=== PATIENT | female | born 1945 | race Caucasian/White ===

== ENCOUNTER → 2018-07-11 10:36 | Outpatient (BNVA) | payer MEDICARE, OTHER, SELFPAY | PROVIDERS: PCP Internal Medicine; Referring Provider Internal Medicine; Visit Provider Student in an Organized Health Care Education/Training Program | DX: M75.82 Other shoulder lesions, left shoulder (principal); M25.512 Pain in left shoulder | CPT/HCPCS: 99214 ==

== ENCOUNTER 2019-09-26 02:23 | Outpatient (CLI) | payer MEDICARE, OTHER, SELFPAY ==
--- NOTE | 2019-09-26 09:19 | DI.MAMMO_ITS ---
EXAM: MAMMO SCREENING CLINICAL HISTORY: screening z12.39 TECHNIQUE: Mammograms were interpreted according to the usual protocol including computer analysis w [employer] CAD system, tomosynthesis and C-view imaging. FINDINGS: The breasts are of moderate density with fairly symmetrical distribution of fibroglandular tissue. N o dominant mass or clumped microcalcification is identified in either breast. Current examination is compared with previous examinations including October 2016 and there has been no gross interval denny nge in appearance in comparison with previous studies. IMPRESSION: No specific evidence of malignancy at this time. Routine screening examinations are suggested at year ly intervals due to the family history of breast carcinoma. Category 1. Breast density, category B. BI-RADS Cat 1 - Negative. Breast Density - Category B - Scattered areas of fibroglandular density.
== END 2019-09-26 02:43 ==
PROVIDERS: PCP Internal Medicine; Visit Provider Nurse Practitioner Family
DX: Z12.31 Encounter for screening mammogram for malignant neoplasm of breast (principal); Z80.3 Family history of malignant neoplasm of breast
CPT/HCPCS: 77063; 77067

== ENCOUNTER 2020-05-22 04:20 | Outpatient (CLI) | payer MEDICARE, OTHER, SELFPAY ==
--- NOTE | 2020-05-22 07:30 | DI.CT_ITS ---
EXAM: CT CHEST PE CTA CLINICAL HISTORY: acute pleuritic pain, R07.81. TECHNIQUE: Imaging Protocol: Axial CT angiography was performed with multi-slice acquisition and mu lti-planar and/or 3D reconstructions. CONTRAST MATERIAL: Intravenous: Omnipaque 350 Contrast volume:90 mL COMPARISON: CT PELVIC/LOWER ABD WITHOUT CONT from 07/29/2017 FINDINGS: Pulmonary Arteries: No evidence of filling defect to suggest pulmonary emboli. Tracheobronchial tree: Patent where visualized. Mediastinum and [place]: No dominant adenopathy or fluid collection. Pulmonary parenchyma: There is poor inspiration with areas of atelectasis present. No architectural d istortion. Pleura: No effusion or pneumothorax. Heart: The heart is not dilated. No coronary artery calcifications are seen. No pericardial effusion. Aorta: Thoracic aorta non-dilated. Atherosclerosis. No dissection. Upper abdomen: Unremarkable. Bones: Degenerative changes. Soft tissues: Unremarkable. IMPRESSION: No evidence of pulmonary embolism, thoracic aortic dissection or aneurysm. RADIATION DOSE DELIVERED: Total DLP DATA REPOSITORY: All CT scans at this facility are submitted to the National Radiology Data Registry (NRDR) Dose Index Registry (DIR) with the [employer] (ACR). RADIATION OPTIMIZATION: All CT scans at this facility use at least one of these dose optimization te chniques: automated exposure control; mA and/or kV adjustment per patient size (includes targeted exa ms where dose is matched to clinical indication); or iterative reconstruction.
[2020-05-22 12:46] LABS: CREATININE 0.68 mg/dL (0.55-1.02)
[2020-05-22] MEDS: Omnipaque 350 MG/ML 100 ML BTL IJ (13:21)
[2020-05-22] MEDS: Normal Saline - Diluent 50 ML VIAL IV (13:26)
== END 2020-05-22 04:40 ==
PROVIDERS: PCP Internal Medicine; Visit Provider Internal Medicine
DX: R07.81 Pleurodynia (principal)
CPT/HCPCS: 71275; 82565; J3490

== ENCOUNTER 2020-06-07 07:47 | Emergency (ER) | payer MEDICARE, OTHER, SELFPAY ==
[2020-06-07] VITALS (47 sets, daily range): BP systolic 96–154; BP diastolic 56–97; PULSE 62–88; RESP 14–27; TEMP 36.6; O2SAT 94–99
--- NOTE | 2020-06-07 07:45 | RT.EKG_ITS ---
APPROVED REPORT Exam: Resting ECG Patient Location: E HR:81 bpm ECG Measurements Heart Rate 81 AXIS DE 163 P 80 QRSd 91 QRS 53 QT 392 T 48 QTc 454 Conclusion Sinus rhythm...normal P axis, V-rate 60- 99 I have reviewed and interpreted ECG and agree with software generated interpretation.
--- NOTE | 2020-06-07 07:55 | ED.GENADUL_ITS ---
Discharge Plan Disposition Patient Disposition: HOME Condition: Stable Discharge Details Clinical Impression: Fatigue, Abnormal weight loss, Difficulty balancing, Palpitations Primary Care Provider: Harmony Matute ED Provider: Emmy Gandhi Home Meds and New Rx's Prescriptions: Continued cholecalciferol (vitamin D3) 1,000 UNIT tablet 1,000 unit PO DAILY RF: 0 calcium carbonate [Calcium 600] 600 MG tablet 600 mg PO DAILY RF: 0 cod liver oil 118 ML oil 118 ml PO DAILY RF: 0 cranberry extract [Cran-Max] 500 MG capsule 500 mg PO DAILY RF: 0 Probiotic 1 EACH capsule 1 ea PO DAILY RF: 0 acetaminophen [Mapap Extra Strength] 500 MG tablet 1,000 mg PO TID PRN PRNQty: 0 RF: 0 Discharge Instructions Instructions: Heart Palpitations (ED), Fatigue (ED) Additional Instructions: Your imaging and labs are reassuring today. Your tick panel is pending and we will call you with any positive results. Please continue to encourage water intake. Please contact your primary care tomorrow to schedule follow-up appointment and discuss echocardiography technologist as well as potential MRI. Please keep your upcoming appoint with rheumatology. If you develop chest pain, shortness of breath, fever/chills or the new/worsening symptoms please seek care urgently once again. Referrals: Harmony Matute MD [Primary Care Provider] - Discharge Data Discharge Date/Time-TO BE ENTERED AT DEPARTURE: 06/07/20 12:20 Medical Decision Making Patient is a pleasant 74-year-old female presenting today with chief complaint of fatigue and heart fluttering. She reports that the fatigue is been ongoing since August of last year. She states that she has been evaluated for primary care regarding this and no definitive diagnosis has been made thus far. She was recently referred to rheumatology. She states that she awoke this morning she was feeling more fatigued than she has been over the past several months and that she has experienced some fluttering in her chest. She denies any chest pain. No shortness of breath. She has been feeling more winded with activity and fatigue, her primary care did recently obtain a PE study which was found to be negative. She states that she has been bitten by a tick. States that she did recently blood work at [facility], unclear if this did include a tick panel. States that she is had approximately 10 pounds of unintentional weight loss. She denies any pain. She does have family history significant for glioblastoma in her brother, colon cancer in her grandmother, breast cancer in her mother. She does have routine medical appointments, has followed up with her mammograms as recommended. States that otherwise she is fairly healthy. Reviewed recent labs from [facility]. It was significant for positive rheumatoid factor. NICOLE was negative. Thyroid studies are normal. Patient had a negative Lyme will be repleted tick and Lyme panel as her symptoms sound to have worsened she does report having tick bites from her dog bring them in. ECG was reviewed by physician with no acute ischemic changes noted. Neurologic exam is intact although patient does have a slight difficulty doing heel-to-toe. She has an appointment balance is been off and symptoms have progressively worsened. She also reports that she is been having difficulty with cognition. While she seems quite quick with her responses is very appropriate today, she reports that she feels that she is been having a cognitive delay and is not as sharp as she is typically. She does have a family history of glioblastoma. This change in her balance and cognitive functioning, I do feel that brain imaging would be appropriate. I am unable to obtain MRI at this time but will obtain CT for evaluation FINDINGS: Brain: No acute intracranial hemorrhage.. There is mild diffuse heterogeneity of the white matter attenuation, consistent with chronic white matter ischemic changes. Mild cerebral atrophy Ventricles: No ventriculomegaly. Bones/joints: Unremarkable. No acute fracture. Paranasal sinuses: There is nonspecific fluid within the ethmoid sinuses. Mastoid air cells: Visualized mastoid air cells are well aerated. Soft tissues: Unremarkable. IMPRESSION: No acute intracranial hemorrhage.. Spoke with patient regarding findings. Labs are also reviewed with the patient. No leukocytosis. Stable H&H. Magnesium is slightly low, she does report recently beginning supplements the recommendation of her daughter. She is had troponins less than 0.05?2. 2 ECGs without acute abnormality. She does appear slightly dehydrated on her UA. I did discuss this with her and she is able to take in more hydration orally. Recommended Holter monitor for continued evaluation of the palpitations she experienced this morning. She is been asymptomatic since being here. I am also questioning if she has underlying arrhythmia that was not noted today that may be contributing to her chronic fatigue. Discussed findings with her at patient's request. He would like to hold off on the Holter monitor and asked that PCP order VIC patch. I did discuss this recommendation with the patient and she is in agreement with this. I also discussed potentially undergoing MRI for her cognitive decline as well as her balance dysfunction. Patient will discuss this further with her primary care. HPI General Mode of arrival: ambulatory . Date/Time Provider Initiated Documentation: 06/07/20 07:55 . Limitations to Documentation: no limitations . Information obtained by: patient, RN notes reviewed and old records reviewed . HPI Narrative: Patient is a pleasant 74-year-old female past medical history significant for Sjogren's syndrome, presenting today with chief complaint of weakness, palpitations and sweating. Patient reports that she has been having fatigue and general malaise since 09/05/2019. However, the fluttering in her chest is new today. States that she was seen at [facility] approximately 1 month ago at which time a large amount of blood work was completed which she reports was nondiagnostic. She reports she did have a rapid change in diet approximately 2 days ago at which time she removed coffee, wheat, soy, dairy products. States that she noted this sensation when she awoke this morning at 0630. Related Data Home Medications Medication Instructions Recorded Confirmed cholecalciferol (vitamin D3) 1,000 unit PO DAILY 12/06/12 06/09/20 calcium carbonate [Calcium 600] 600 mg PO DAILY 07/25/14 06/09/20 cod liver oil 118 ml PO DAILY 07/25/14 06/09/20 cranberry extract [Cran-Max] 500 mg PO DAILY 07/25/14 06/09/20 Probiotic 1 ea PO DAILY 10/15/15 06/09/20 acetaminophen [Mapap Extra 1,000 mg PO TID PRN PRN #0 tab 07/31/17 06/09/20 Strength] Previous Rx's Medication Instructions Recorded acetaminophen [Mapap Extra 1,000 mg PO TID PRN PRN #0 tab 07/31/17 Strength] Allergies Allergy/AdvReac Type Severity Reaction Status Date / Time Sulfa (Sulfonamide Allergy Mild Skin Rash Verified 06/07/20 08:04 Antibiotics) Review of Systems Constitutional Constitutional: Reports as per HPI, Denies chills, Reports fatigue, Denies fever(s), Denies frequent falls (states that balance has been off), Denies headache(s), Denies snoring, Denies weakness and Reports weight loss (reports 10lb weight loss, unintentional) Eyes Eyes: Reports as per HPI, Denies blurry vision, Denies change in vision and Reports photophobia ENT Ears, Nose, Mouth, and Throat: Denies vertigo, Denies headache(s) and Denies neck pain Cardiovascular Cardiovascular: Reports as per HPI, Denies chest pain, Denies chest pain with activity, Reports rapid heart rate (reports feeling palpitations with fluttering in her chest), Denies lightheadedness, Denies radiating jaw, neck or arm pain, Denies dyspnea and Denies dyspnea on exertion Respiratory Respiratory: Reports as per HPI, Denies chest congestion, Denies cough, Denies dyspnea, Denies dyspnea on exertion, Denies snoring, Denies stridor and Denies wheezing Gastrointestinal Gastrointestinal: Reports as per HPI, Denies abdominal pain, Denies change in bowel habits, Denies nausea and Denies vomiting Musculoskeletal Musculoskeletal: Reports as per HPI, Denies back pain, Denies myalgias, Denies muscle cramps, Denies neck pain and Denies numbness Integumentary/Breasts Skin/Breast: Reports as per HPI and Denies rash Neurologic Neurologic: Reports as per HPI, Denies abnormal movements, Denies abnormal speech, Denies behavioral changes, Denies confusion, Denies vertigo, Denies frequent falls (states that balance has been off), Denies headache(s), Denies localized weakness, Denies numbness, Denies sensory deficit and Denies weakness Psychiatric Psychiatric: Denies behavioral changes and Denies confusion Endocrine Endocrine: Reports fatigue Allergic/Immunologic Allergic/Immunologic: Denies wheezing [facility] Surgical History Oophrectomy, Both with hyst Vaginal hysterectomy 2001 for prolapse Family History Mother , Alzheimers at age 89. Breast cancer Grandmother Colon cancer MGM Father No problems noted. Social History Smoking/Tobacco Use Status: Never Alcohol Intake: never Drug use: Never Household members: spouse Housing: house What is your relationship status?: Panel score (0-1 are the most socially isolated patients): 1 What type of physical activity do you participate in: regular exercise Seatbelt use: always Drive intox or ride w/intox driver operator: No Working smoke detector in home: Yes Fire extinguisher in home: Yes Carbon monox detector in home: Yes Do you feel safe at home: Yes Do you feel safe in your relationship?: Yes Exam Const General: cooperative, healthy appearing, uncomfortable, no acute distress, well developed and well groomed Nutritional Appearance: average body habitus and well nourished Orientation: alert, awake and oriented x3 HENMT Head: normal to inspection, no palpable skull fracture, normocephalic and atraumatic Ears: hearing grossly normal bilaterally, external ears normal and TM's normal bilaterally General nose exam: external nose normal Mouth: oral mucosae normal and moist mucous membranes Throat: posterior oropharynx normal Eyes General: appearance normal, both eyes and all related structures Alignment and Position: alignment normal Periorbital: periorbital findings normal Eyelids: eyelids normal Sclera: sclerae normal Cornea: corneas normal Pupils: PERRL EOM: EOM intact bilaterally Neck Neck: normal visual inspection, full ROM, no lymphadenopathy and no meningeal signs Resp Effort & Inspection: normal respiratory effort, able to speak in complete sentences and no respiratory distress Auscultation: clear to auscultation bilaterally, no rales, no rhonchi and no wheezes Cardio Rate: regular rate Rhythm: regular rhythm Heart Sounds: S1 normal and S2 normal GI Inspection: normal to inspection and non-distended Palpation: soft, no hepatosplenomegaly, not firm, no guarding, not rigid and nontender Percussion: normal to percussion Auscultation: normal bowel sounds Back/Spine/Pelvis Cervical Spine: normal cervical lordosis and cervical ROM normal Skin General skin exam: no rashes or lesions noted Neuro General: patient alert, patient awake and patient oriented x3 Cranial Nerves: CN's II-XI intact bilaterally Cognition: normal cognition Speech: speech normal Gait: normal gait Motor: muscle tone normal throughout, strength 5/5 throughout, no pronator drift, no movement abnormalities noted and no fasciculations Sensory Exam: no sensory deficits noted DTR's: Rt Triceps: 2+, Lt Triceps: 2+, Rt Biceps: 2+, Lt Biceps: 2+, Rt Brachioradialis: 2+, Lt Brachioradialis: 2+, Rt Patellar: 2+, Lt Patellar: 2+, Rt Ankle: 2+ and Lt Ankle: 2+ Coordination: [id number] test normal, [id number] test normal, Romberg test normal, tandem gait abnormal (Has to correct herself frequently, catches herself on the bed), Does not sway with eyes open, rapid alternating movement UE normal and rapid alternating movement LE normal Extrem General: normal to inspection, capillary refill normal, no pedal edema and no calf tenderness Psych Appearance: grossly normal and well kempt Mental Status: mental status grossly normal Speech and Movement: speech and movement normal
[2020-06-07 08:15] LABS: Abs Immature Grans 0.03 10^3/uL (0.0-0.06); Absolute Basophil Count 0.02 10^3/uL (0.0-0.2); Absolute Eosinophil Count 0.13 10^3/uL (0.0-0.7); Absolute Lymphocyte Count 1.76 10^3/uL (1.2-3.4); Absolute Monocyte Count 0.47 10^3/uL (0.1-0.8); Absolute Neutrophil Count 4.47 10^3/uL (1.2-6.7); Basophils % 0.3; Eosinophils % 1.9; HGB 14.2 g/dL (11.2-15.7); Immature Grans % 0.4; Lymphocytes % 25.6; MCH 30.6 pg (27.0-33.0); MCHC 34.6 % (32.0-36.0); MCV 88.4 fL (80-95); MPV 8.8 fL (8.0-11.0); Monocytes % 6.8; Nucleated RBC 0 %; Platelet Count 272 10^3/uL (130-400); RBC 4.64 10^6/uL (3.93-5.22); RDW 12.1 % (11.7-14.6); RDW-SD 39.5 fL; WBC 6.88 10^3/uL (4.4-10.8)
[2020-06-07 08:37] LABS: ALT 24 U/L (14-59); AST 18 U/L (15-37); Albumin 3.2 g/dL (3.4-5.0); Alkaline Phosphatase 53 U/L (46-116); Anion Gap 8.9 mmol/L (3-11); BUN 17 mg/dL (7-18); Bilirubin, Total 0.7 mg/dL (0.2-1.0); CO2 26.1 mmol/L (21.0-32.0); CREATININE 0.71 mg/dL (0.55-1.02); Calcium 8.8 mg/dL (8.5-10.1); Chloride 99 mmol/L (98-107); Glucose 139 mg/dL (74-106); Magnesium 1.7 mg/dL (1.8-2.4); Potassium 3.5 mmol/L (3.5-5.1); Sodium 134 mmol/L (136-145); TSH (W/Ref FT4) 1.74 uIU/mL (0.36-3.74)
[2020-06-07 08:41] LABS: Troponin I < 0.05 ng/mL (<0.06)
--- NOTE | 2020-06-07 09:00 | DI.CT_ITS ---
EXAM: CT HEAD WO CLINICAL HISTORY: cognitive decline, balance off, fam hx glioblastom. TECHNIQUE: Imaging Protocol: Axial computed tomography images with coronal and sagittal reformatted images were created and reviewed COMPARISON: No exams were available for comparison FINDINGS: Ventricles and Extra axial spaces: Normal in size and morphology for the patient's age. Hemorrhage: None. Cerebral parenchyma: There are areas of decreased attenuation in the white matter most consistent wit h microvascular ischemic changes. No acute territorial infarct. Midline shift: None. Brainstem/Cerebellum: Normal. Calvarium: Normal. Visualized Paranasal sinuses/Mastoids: Clear except for opacification of a few ethmoid air cells. Soft Tissues: Unremarkable. IMPRESSION: No acute intracranial process. RADIATION DOSE DELIVERED: 810.85mGy.cm Total DLP DATA REPOSITORY: All CT scans at this facility are submitted to the National Radiology Data Registry (NRDR) Dose Index Registry (DIR) with the [employer] (ACR). RADIATION OPTIMIZATION: All CT scans at this facility use at least one of these dose optimization te chniques: automated exposure control; mA and/or kV adjustment per patient size (includes targeted exa ms where dose is matched to clinical indication); or iterative reconstruction.
[2020-06-07 09:27] LABS: Bilirubin Negative (Negative); Blood Negative (Negative); Clarity Clear (Clear); Glucose Negative (Negative); Ketones 15 mg/dL (Negative); Leukocyte Esterase Negative (Negative); Nitrite Negative (Negative); Specific Gravity >= 1.030 (1.005-1.025); Urobilinogen 0.2 EU/dL (Up TO 0.2)
--- NOTE | 2020-06-07 09:53 | DI.VRAD_ITS ---
PROCEDURE INFORMATION: Exam: CT Head Without Contrast Exam date and time: 06/07/2020 9:11 AM Age: 74 years old Clinical indication: Other: Cognitive decline, balance off, fam HX glioblastom TECHNIQUE: Imaging protocol: Computed tomography of the head without contrast. COMPARISON: No relevant prior studies available. FINDINGS: Brain: No acute intracranial hemorrhage.. There is mild diffuse heterogeneity of the white matter attenuation, consistent with chronic white matter ischemic changes. Mild cerebral atrophy Ventricles: No ventriculomegaly. Bones/joints: Unremarkable. No acute fracture. Paranasal sinuses: There is nonspecific fluid within the ethmoid sinuses. Mastoid air cells: Visualized mastoid air cells are well aerated. Soft tissues: Unremarkable. IMPRESSION: No acute intracranial hemorrhage.. Dictated and Authenticated by: Mandi Lopez MD. Ordering:ANDREAS Booth MD
--- NOTE | 2020-06-07 11:00 | RT.EKG_ITS ---
APPROVED REPORT Exam: Resting ECG Patient Location: E HR:65 bpm ECG Measurements Heart Rate 65 AXIS NH 183 P 59 QRSd 81 QRS 49 QT 430 T 51 QTc 449 Conclusion Sinus rhythm...normal P axis, V-rate 60- 99 I have reviewed and interpreted ECG and agree with software generated interpretation.
[2020-06-07 11:40] LABS: Troponin I < 0.05 ng/mL (<0.06)
[2020-06-08 10:15] LABS: Lyme Ab w Rflx to Lyme Confirm Negative (Negative)
[2020-06-09 21:13] LABS: Anaplasma phagocytophilum Negative (Negative); B. miyamotoi PCR Negative (Negative); Babesia divergens/MO-1 Negative (Negative); Babesia duncani Negative (Negative); Babesia microti Negative (Negative); Ehrlichia chaffeensis Negative (Negative); Ehrlichia ewingii/canis Negative (Negative); Ehrlichia muris eauclairensis Negative (Negative)
== END 2020-06-07 12:20 | disposition home or self-care (01) ==
PROVIDERS: Emergency Provider Physician Assistant; PCP Internal Medicine
DX: R00.2 Palpitations (principal); R53.83 Other fatigue; R63.4 Abnormal weight loss; R26.89 Other abnormalities of gait and mobility
CPT/HCPCS: 36415; 80053; 87798; 93005; 99285; 70450; 81003; 83735; 84443; 84484; 85025; 86618; 93010

== ENCOUNTER 2020-06-10 12:02 | Outpatient (CLI) | payer MEDICARE, OTHER, SELFPAY | END 2020-06-10 12:22 | PROVIDERS: PCP Internal Medicine; Visit Provider Internal Medicine | DX: R00.2 Palpitations (principal) | CPT/HCPCS: 93225 ==

== ENCOUNTER 2020-06-12 16:42 | Outpatient (CLI) | payer MEDICARE, OTHER, SELFPAY ==
--- NOTE | 2020-06-15 08:40 | W.HOLTRPT ---
Date of service: 06/15/20 Time of Service: 08:40 Holter Monitor Report Referring Provider:: trent Indications:: palps Holter Monitor Note: This is a 2-day Holter monitor ordered for indication of palpitations. ?The patient was normal sinus rhythm for the majority of the recording with an average heart rate of 76 bpm. ?There were 0 episodes of ventricular tachycardia nor any episodes of supraventricular tachycardia. ?There were rare PACs as well as occasional (4.5%) PVCs. ?There were no episodes of atrial fibrillation, no pauses greater than 3 seconds and no evidence of high degree heart block.
== END 2020-06-12 17:02 ==
PROVIDERS: PCP Internal Medicine; Visit Provider Internal Medicine
DX: R00.2 Palpitations (principal); I49.3 Ventricular premature depolarization; I49.1 Atrial premature depolarization
CPT/HCPCS: 93226

== ENCOUNTER 2020-06-15 08:05 | Outpatient (CLI) | payer MEDICARE, OTHER, SELFPAY | END 2020-06-15 08:25 | PROVIDERS: PCP Internal Medicine; Referring Provider Internal Medicine; Visit Provider Internal Medicine Cardiovascular Disease | DX: R00.2 Palpitations (principal); I49.3 Ventricular premature depolarization; I49.1 Atrial premature depolarization | CPT/HCPCS: 93227 ==

== ENCOUNTER 2021-07-09 01:12 | Outpatient (CLI) | payer MEDICARE, OTHER, SELFPAY ==
--- NOTE | 2021-07-09 | DI.RAD_ITS ---
Exam(s) RF BARIUM SWALLOW EXAM: RF BARIUM SWALLOW CLINICAL HISTORY: DYSPHAGIA,R13.10 TECHNIQUE: 2D and realtime digital imaging was performed. CONTRAST MATERIAL: Oral barium Oral water soluble contrast was administered. COMPARISON: CR CHEST 2 VIEWS PA,LAT from 07/29/2017 FINDINGS: CHEST X-RAY: The heart and pulmonary vasculature are within normal limits. The lungs are clear. No pl eural effusion or pneumothorax is present. The bones are within normal limits fo the patient's age. ESOPHAGRAM: The esophagus is patent with no evidence for erosions, fold thickening, strictures, or ma sses. With regards to the motility, there is a normal primary stripping wave. Minor tertiary contract ions were seen during the examination. There is no hiatal hernia or gastroesophageal reflux. There w as no aspiration. IMPRESSION: No evidence of aspiration, gastroesophageal reflux or intrinsic or or extrinsic mass. RADIATION DOSE DELIVERED: malika Monroy=12.7 mGy
[2021-07-09] MEDS: Barium Sulfate 60% W/V 355 ML BTL PO (09:54)
[2021-07-09] MEDS: Barium Sulfate 700 MG TAB PO (09:55)
== END 2021-07-09 01:32 ==
PROVIDERS: Visit Provider Family Medicine
DX: R13.10 Dysphagia, unspecified (principal)
CPT/HCPCS: 74221; J3490

== ENCOUNTER 2021-09-30 02:26 | Outpatient (CLI) | payer MEDICARE, OTHER, SELFPAY ==
--- NOTE | 2021-09-30 11:00 | DI.DEXA_ITS ---
Exam(s) XR DEXA BONE DENSITY W/WO GURPREET EXAM: XR DEXA BONE DENSITY W/WO GURPREET CLINICAL HISTORY: MENOPAUSAL, Z78.0 TECHNIQUE: [employer] C densitometer COMPARISON: CR RT HIP COMPLETE AP PELVIS from 10/20/2017 DEXA 2004 FINDINGS: Lateral view of the thoracic and lumbar spine shows no evidence of compression fractures. Bone mineral density measurements of the lumbar spine correspond to a total T-score of -1.0, the low normal range. This represents a 4.7 percent decrease in total lumbar spine bone density when compar ed with 2003. Bone mineral density measurements of the left hip could not be performed due to bilateral hardware. The left forearm bone mineral density measurements correspond to a T-score of the distal 3rd of -4.1 , in the osteoporotic range. The forearm was not analyzed in 2003.. IMPRESSION: Osteoporosis of the left forearm. Borderline osteopenia of the lumbar spine.
--- NOTE | 2021-09-30 11:30 | DI.MAMMO_ITS ---
Exam(s) MAMMO SCREENING EXAM: MAMMO SCREENING CLINICAL HISTORY: SCREENING, Z12.39 TECHNIQUE: Mammograms were interpreted according to the usual protocol including computer analysis w [employer] CAD system, tomosynthesis and C-view imaging. COMPARISON: 2011 through 2019 FINDINGS: The breasts are composed of scattered fibroglandular densities, Breast Density category B. No suspicious masses or suspicious microcalcifications are seen. No skin thickening or abnormal axillary lymph nodes are seen. There has been no significant change from prior exams. IMPRESSION: BI-RADS Category 1, Negative mammogram Yearly screening mammography is recommended. Breast Density - Category B, scattered fibroglandular densities. A negative radiographic report should not delay biopsy if a dominant or clinically suspicious mass is present. Up to ten percent of cancers are not identified on mammography. A negative report may reinforce clinical impression. Adenosis and dense breasts may obscure an underlying neoplasm. False positive reports average 6 to 10%. Patient will receive a letter notifying them of these results.
== END 2021-09-30 02:46 ==
PROVIDERS: Visit Provider Family Medicine
DX: Z78.0 Asymptomatic menopausal state (principal); Z12.39 Encounter for other screening for malignant neoplasm of breast; M81.0 Age-related osteoporosis without current pathological fracture; M85.88 Other specified disorders of bone density and structure, other site
CPT/HCPCS: 77063; 77067; 77080

== ENCOUNTER 2021-10-27 01:49 | Outpatient (CLI) | payer MEDICARE, OTHER, SELFPAY ==
[2021-10-27 13:22] LABS: Ferritin 133 ng/mL (8-252)
== END 2021-10-27 01:50 | disposition home or self-care (01) ==
LOC: LBO 01:49
PROVIDERS: Visit Provider Nurse Practitioner
DX: M25.561 Pain in right knee (principal)
CPT/HCPCS: 36415; 82728

== ENCOUNTER 2022-02-11 18:45 | Outpatient (REF) | payer MEDICARE, OTHER, SELFPAY ==
[2022-02-11 15:38] LABS: HCT 40.2 % (36.0-46.0); HGB 13.8 g/dL (11.2-15.7); MCH 31.4 pg (27.0-33.0); MCHC 34.3 % (32.0-36.0); MCV 91 fL (80-95); MPV 10.9 fL (8.0-11.0); Platelet Count 260 10^3/uL (130-400); RDW 13.1 % (11.7-14.6); RDW-SD 43.9 fL
[2022-02-11 16:48] LABS: ALT 24 U/L (14-59); AST 18 U/L (15-37); Albumin 3.5 g/dL (3.4-5.0); Alkaline Phosphatase 50 U/L (46-116); Anion Gap 9.7 mmol/L (3-11); BUN 17 mg/dL (7-18); Bilirubin, Total 0.5 mg/dL (0.2-1.0); CO2 26.3 mmol/L (21.0-32.0); CREATININE 0.7 mg/dL (0.55-1.02); Chloride 102 mmol/L (98-107); Folate 19.9 ng/mL (8.6-20.0); Glucose 87 mg/dL (74-106); Potassium 4.2 mmol/L (3.5-5.1); Sodium 138 mmol/L (136-145); Total Protein 6.7 g/dL (6.4-8.2); Vitamin B12 594 pg/mL (193-986)
[2022-02-11 17:22] LABS: FREE T4 1.09 ng/dL (0.76-1.46)
[2022-02-14 05:07] LABS: Vitamin D 25 Total 67.3 ng/mL (30-100)
[2022-02-14 11:51] LABS: Hepatitis C Ab w Rflx HCV PCR Negative (Negative)
== END 2022-02-11 18:46 | disposition home or self-care (01) ==
LOC: NCHCN 18:45
PROVIDERS: Visit Provider Family Medicine
DX: R53.83 Other fatigue (principal); R26.89 Other abnormalities of gait and mobility; M81.0 Age-related osteoporosis without current pathological fracture; Z11.59 Encounter for screening for other viral diseases; R27.8 Other lack of coordination
CPT/HCPCS: 80053; 82306; 82533; 85027; 86803; 82607; 82746; 84439; 84443; 84481

== ENCOUNTER 2022-03-31 18:13 | Outpatient (REF) | payer MEDICARE, OTHER, SELFPAY ==
[2022-03-31 21:23] LABS: Abs Immature Grans 0.01 10^3/uL (0.0-0.06); Absolute Basophil Count 0.03 10^3/uL (0.0-0.2); Absolute Eosinophil Count 0.05 10^3/uL (0.0-0.7); Absolute Lymphocyte Count 1.36 10^3/uL (1.2-3.4); Absolute Monocyte Count 0.37 10^3/uL (0.1-0.8); Absolute Neutrophil Count 4.05 10^3/uL (1.2-6.7); Basophils % 0.5; Eosinophils % 0.9; HCT 39.7 % (36.0-46.0); HGB 13.4 g/dL (11.2-15.7); Immature Grans % 0.2; Lymphocytes % 23.2; MCH 30.6 pg (27.0-33.0); MCHC 33.8 % (32.0-36.0); MCV 91 fL (80-95); MPV 10.3 fL (8.0-11.0); Monocytes % 6.3; Neutrophils % 68.9; Platelet Count 271 10^3/uL (130-400); RBC 4.38 10^6/uL (3.93-5.22); RDW 12.7 % (11.7-14.6); RDW-SD 42.2 fL; WBC 5.87 10^3/uL (4.4-10.8)
[2022-03-31 21:35] LABS: ALT 30 U/L (14-59); AST 20 U/L (15-37); Albumin 3.7 g/dL (3.4-5.0); Alkaline Phosphatase 45 U/L (46-116); Anion Gap 10.2 mmol/L (3-11); BUN 17 mg/dL (7-18); Bilirubin, Total 0.4 mg/dL (0.2-1.0); CO2 25.8 mmol/L (21.0-32.0); CREATININE 0.6 mg/dL (0.55-1.02); Chloride 99 mmol/L (98-107); Glucose 112 mg/dL (74-106); Potassium 3.7 mmol/L (3.5-5.1); Sodium 135 mmol/L (136-145)
== END 2022-03-31 18:14 | disposition home or self-care (01) ==
LOC: LBN 18:13
PROVIDERS: Visit Provider Physician Assistant Medical
DX: M79.661 Pain in right lower leg (principal)
CPT/HCPCS: 80053; 85025

== ENCOUNTER → 2022-04-01 00:43 | Outpatient (CLI) | payer MEDICARE, OTHER, SELFPAY ==
--- NOTE | 2022-04-01 | DI.US_ITS ---
Exam(s) US LOWER EXTREMITY VENOUS RT EXAM: US LOWER EXTREMITY VENOUS RT CLINICAL HISTORY: RT CALF PAIN, ? DVT,M79.661 TECHNIQUE: Right lower extremity venous ultrasound performed using grayscale, color-flow, and spectr al Doppler analysis. COMPARISON: No exams were available for comparison FINDINGS: The right common femoral, femoral and popliteal veins demonstrate normal compressibility, augmentatio n, and color Doppler. The posterior tibial veins are patent. The saphenofemoral junction is unremark able. There is no evidence of a Lilly cyst. The soft tissues are unremarkable. IMPRESSION: No DVT. DATA REPOSITORY:
--- OUTSIDE RECORDS SUMMARY | 2022-04-01 00:47 | XMS_ITS | Encounter Summary ---
:1945 Author Organization [facility] [place] [address] Care Team Providers Name Role Phone Harmony Matute MD Primary Care Provider Encounter Details Date Type Department Care Team Description 05/17/2021 Transcribe Orders Laboratory at [facility] Olive[facility], Jeanne Osman MD unspecified type [address] [facility] [id number] [facility] [phone] [place] [address] Social History Tobacco Use Types Packs/Day Years Used Date Never Smoker Smokeless Tobacco: Never Used Sex Assigned at Date Recorded Not on file documented as of this encounter Plan of Treatment Not on filedocumented as of this encounter Results C. Difficile Screen (05/17/2021 12:31 PM EDT) Analysis Performed At [facility] Time Signature C Diff Screen Negative Negative [facility] Comment: Ag/Tox Neg C. diff?? Negative Clostridium difficile is not present in the specimen. If patient is having diarrhea suspected to be from an infecti ous cause, then Soap & Water Contact Precautions are still required. Specimen Anatomical Collection Method Collection Time Receive d Time (Source) Location / / Volume Laterality Stool 05/17/2021 12:31 05/17/2021 4:01 PM EDT PM EDT Comment: Enter the Lab Location:->[facility] [place] Resulting Agency Comment Spec In Lab Gisselle Cochran MD MICROBIOLOGY - GENERAL ORDER KATLYN Performing Organization Address City/State/ZIP Code Phon e Number LABORATORY [address] [place], [place] [address] (ABNORMAL) Comprehensive metabolic panel (non-fasting) (05/17/2021 12:08 PM EDT) P athologist Signature Glucose Lvl 94 65 - 199 mg/dL [facility] Comment: Diabetes: >=200 mg/dL plus symp toms BUN 10 8 - 18 mg/dL [facility] Creatinine 0.59 (L) 0.70 - 1.20 mg/dL [facility] Sodium 136 135 - 145 mmol/L LAB[facility] Potassium 3.9 3.5 - 5.0 mmol/L [facility] Comment: Please note: ??Patients with WBC >100,00 0 may have falsely elevated Potassium levels. ??For accurate Potassium quantif ication in these patients send serum separator tube (gold top) for subsequent determinations. ??Contact the Clinical Chemistry Laboratory if there are any qu estions. Chloride 100 98 - 107 mmol/L LAB[facility]ORY CO2 25 22 - 31 mmol/L LAB[facility] Anion Gap 11 5 - 15 mmol/L L [facility] Calcium 9.6 8.5 - 10.5 mg/dL LAB[facility] Total Protein 6.7 6.1 - 8.0 gm/dL [facility] Albumin 4.2 3.2 - 5.2 gm/dL LAB[facility] AST 16 0 - 30 unit/L L [facility] ALT 14 0 - 30 unit/L L [facility] Alk Phos 46 35 - 105 unit/L [facility] Total Bilirubin 0.4 0.2 - 1.3 mg/dL LAB[facility] Estimated GFR 88 >=60 mL/min/1.73 m?? [facility] Comment: This patient? s estimated glomerular filtration rate (eGFR) is between 88 mL/min/1.73 m2 (patients with less muscl e mass per kg body weight) and 102 mL/min/1.73 m2 (patients with more muscl e mass per kg body weight) as determined by the CKD-EPI equation. Asse ssment of eGFR is not appropriate when creatinine concentrations are rapidly ch anging. For clinical decisions where creatinine clearance will affect therapy , a 24-hour urine creatinine clearance may be advised. Assignment of CKD stage 1 - 5 for patien ts with an eGFR near the transition point between stages may be based on cli nical assessment of muscle mass and symptoms in addition to eGFR. Specimen Anatomical Collection Method Collection Time Receive d Time (Source) Location / / Volume Laterality Blood 05/17/2021 12:08 05/17/2021 PM EDT 12:27 PM EDT Resulting Agency Comment Spec In Lab Gisselle Cochran MD CHEMISTRY ORDERABLES Performing Organization Address City/State/ZIP Code Phon e Number [facility] [address] [place], [place] [address] documented in this encounter Visit Diagnoses Diagnosis Diarrhea, unspecified type documented in this encounter Care Teams Ribbon Lapper Tender Relationship Specialty Start Date End Date Harmony Matute MD PCP - General General Internal Medicine 04/06/20 02/20/[address] [place] [address] documented as of this encounter
--- OUTSIDE RECORDS SUMMARY | 2022-04-01 00:47 | XMS_ITS | Encounter Summary ---
:1945 Author Organization [facility] [place] [address] Care Team Providers Name Role Phone Harmony Matute MD Primary Care Provider Encounter Details Date Type Department Care Team Description 09/16/2020 Hospital Encounter XRay at [facility] Lozano, Satyaopher Hip pain; 1 [facility] MD Víctor Ar[place]ral[place], [place] [address] RHEUMATOLOGY DEPT. [phone] [place], [place] [address] (Wo rk) Social History Tobacco Use Types Packs/Day Years Used Date Never Smoker Smokeless Tobacco: Never Used Sex Assigned at Date Recorded Not on file documented as of this encounter Medications at Time of Discharge Medication Sig Dispensed Refills Start Date End Date estradioL (ESTRACE) 0.01 % Place 1 g vaginally. 0 05/14/2020 (0.1 mg/gram) Cream documented as of this encounter Plan of Treatment Not on filedocumented as of this encounter Procedures Procedure Name Priority Date/Time Associated Diagnosis Comme nts XR PELVIS AND HIP 2 Routine 09/16/2020 2:43 PM Hip pain Results for this VIEWS BILATERAL EST Arthralgia, procedure ar e in unspecified joint the result s section. documented in this encounter Results XR Pelvis and Hip 2 Views Bilateral (09/16/2020 2:43 PM EST) Anatomical Region Laterality Modality Pelvis, Hip Bilateral Digital Radiography Specimen (Source) Anatomical Location Collection Method / Collectio n Time Received Time / Laterality Volume Impressions 09/16/2020 2:56 PM EST 1. Healed, hardware reduced femoral neck fractures without radiographic finding of complication. 2. Moderate osteoarthropathy at the hips . No acute radiographic abnormality. Thank you for letting us participate in the care of this patient. For questions regarding this report, please contact e number below. ? Electronically signed by: Aparna daly MD, [facility] ([phone]), at 09/16/2020 2:56 PM Narrative 09/16/2020 2:56 PM EST EXAMINATION: XR PELVIS AND HIP 2 VIEWS BILATERAL CLINICAL HISTORY: Previous hip frracture s pinned. Now with increasing hip pain. Exam suggests adnvanced OA left. ? OA, J SN, etc. TECHNIQUE: 5 views of the pelvis and hips COMPARISON: None FINDINGS: Right hip: Dynamic compression screw is intact without adjacent lucency, perihardware fracture or bone malalignme nt. No fracture line is seen. Mild superior hip joint space narrowing is ac companied by marginal osteophytes. No focal soft tissue abnormality. Left hip: Two partially threaded, cannul ated screws bridge the femoral neck. Hardware is intact without adjacent luce ncy, fracture or bone malalignment. No fracture line is seen. Mild superior hip joint space narrowing is accompanied by marginal osteophytes. No focal soft tiss ue abnormality. Pelvis: Bones are intact with diffusely decreased mineralization, noting nondisplaced fractures could be obscured in the posterior pelvis and sacrum on the basis of bowel contents. Mild joint space narrowing and small osteophytes are present at the inferior sacroiliac j oints and pubic symphysis. Nonobstructive bowel gas pattern. Multil evel lumbar spondylosis. Procedure Note Aparna Gonzalez MD - 09/16/2020Forma tting of this note might be different from the original. EXAMINATION: XR PELVIS AND HIP 2 VIEWS B ILATERAL CLINICAL HISTORY: Previous hip frracture s pinned. Now with increasing hip pain. Exam suggests adnvanced OA left. ? OA, J SN, etc. TECHNIQUE: 5 views of the pelvis and hips COMPARISON: None FINDINGS: Right hip: Dynamic compression screw is intact without adjacent lucency, perihardware fracture or bone malalignme nt. No fracture line is seen. Mild superior hip joint space narrowing is ac companied by marginal osteophytes. No focal soft tissue abnormality. Left hip: Two partially threaded, cannul ated screws bridge the femoral neck. Hardware is intact without adjacent luce ncy, fracture or bone malalignment. No fracture line is seen. Mild superior hip joint space narrowing is accompanied by marginal osteophytes. No focal soft tiss ue abnormality. Pelvis: Bones are intact with diffusely decreased mineralization, noting nondisplaced fractures could be obscured in the posterior pelvis and sacrum on the basis of bowel contents. Mild joint space narrowing and small osteophytes are present at the inferior sacroiliac j oints and pubic symphysis. Nonobstructive bowel gas pattern. Multil evel lumbar spondylosis. IMPRESSION 1. Healed, hardware reduced femoral neck fractures without radiographic finding of complication. 2. Moderate osteoarthropathy at the hips . No acute radiographic abnormality. Thank you for letting us participate in the care of this patient. For questions regarding this report, please contact e number below. Electronically signed by: Aparna daly MD, [facility] ([phone]), at 09/16/2020 2:56 PM Mirza Lozano MD IMG DX ORDERABLES documented in this encounter Visit Diagnoses Diagnosis Hip pain Pain in joint, pelvic region and thigh Arthralgia, unspecified joint documented in this encounter Care Teams Inspector Salvage Relationship Specialty Start Date End Date Harmony Matute MD PCP - General General Internal Medicine 04/06/20 02/20/22 [address] [place] [address] documented as of this encounter
--- OUTSIDE RECORDS SUMMARY | 2022-04-01 00:47 | XMS_ITS | Encounter Summary ---
:1945 Author Organization [facility] [place] [address] Care Team Providers Name Role Phone Harmony Matute MD Primary Care Provider Reason for Visit Reason Onset Date Comments Labs Only 09/22/2020 Encounter Details Date Type Department Care Team Description 09/22/2020 Telephone Rheumatology at [facility] Larry [place] [address] Social History Tobacco Use Types Packs/Day Years Used Date Never Smoker Smokeless Tobacco: Never Used Sex Assigned at Date Recorded Not on file documented as of this encounter Miscellaneous Notes Telephone Encounter - Larry Dailey RN - 09/23/2020 10:05 AM EST Patient updated on imaging and labs. Right knee difficult to bend, but able to bear wear and discomfort is manageable. Patient has elliptical in home and has been using. PT in [facility] may be closed, but patient is amenable to. She will contact local PT and call clinic with an update on where orders to be sent. Telephone Encounter - Larry Dailey RN - 09/22/2020 9:49 AM EST Called patient, unavailable. Left vm with call back number provided. Telephone Encounter - Larry Dailey RN - 09/22/2020 9:47 AM EST ----- Message from Mirza Lozano MD sent at 09/18/2020 1:44 PM EST ----- Please call the patient and her daughter, Jennifer, about the results of the testing. Would you please suggest to them again that they sign up for [facility] to make communication easier? Surprisingly, her hip x-rays showed only moderate osteoarthritis of the hips. I'm surprised by that because of how abnormal her exam on the left is. It is possible that the x-rays are underestimating the problem there. The question now is what further imaging can be done because the hardware in there will limit the quality of the images. I'll talk to the radiologists and see what they say and let them know.In terms of the knees, she has very advanced osteoarthritis of that right knee, as expected byexam. The left knee looks okay. Both knees have chondrocalcinosis, which means there is calcium deposits in the cartilage. This is probably just secondary to the damage in there, but sometimes the calcium deposits can cause more pain and inflammation, and maybe that's been contributing to her symptoms. Would you please ask her again how much that right knee bothers her? We didn't really focus on thatduring the visit. The lab work looked about the same. The rheumatoid factor was again positive at a slightly higher level. The CCP, the more specific test for rheumatoid arthritis, was again negative. Her inflammation tests and her blood counts were normal.While I discuss with the radiologists what would be the next best study to examine that left hip, would she like to proceed with physical therapy near home to see if we can get her going again? I understand that she might not be enthusiastic about that because of the pandemic, which is perfectly reasonable. Let me know.Sorry for the long message... Thanks, Maninder documented in this encounter Plan of Treatment Not on filedocumented as of this encounter Visit Diagnoses Not on filedocumented in this encounter Care Teams Glove Boarder Relationship Specialty Start Date End Date Harmony Matute MD PCP - General General Internal Medicine 04/06/20 02/20/22 [place] [address] documented as of this encounter
--- OUTSIDE RECORDS SUMMARY | 2022-04-01 00:47 | XMS_ITS | Encounter Summary ---
:1945 Author Organization [facility] [place] [address] Care Team Providers Name Role Phone Harmony Matute MD Primary Care Provider Reason for Visit Consultation (Routine) - Specialty Diagnoses / Procedures Referred By Contact Refer red To Contact Rheumatology Diagnoses Evaluate for RA Gisselle Cochran MD [facility] Rheumatology 5c Procedures Evaluate for RA [address] [place] [address] [place], [place] Phone: [phone] Referral ID Status Reason Start Date Expiration Date Visits V isits Requested Authorized [id number] Consult, 05/20/2020 05/20/2021 1 1 Test & Treat Encounter Details Date Type Department Care Team Description 09/16/2020 Office Visit Rheumatology at [facility] Mirza Lozano Hip pain; [facility] MD Víctor Chronic pain of both knees; [facility] Arthralgia, unspecified join t; [place], [place] Primary osteoarthritis involving multipl e joints; [id number] RHEUMAT[address] DEPT[address] Chondrocalcinosis; [phone], [place] [address] Osteopenia, unspecified location; [phone] (Wo rk) Closed fracture of both hips, sequela Social History Tobacco Use Types Packs/Day Years Used Date Never Smoker Smokeless Tobacco: Never Used Sex Assigned at Date Recorded Not on file documented as of this encounter Last Filed Vital Signs Vital Sign Reading Time Taken Comments Blood Pressure 143/79 09/16/2020 12:58 PM EST Pulse 73 09/16/2020 12:58 PM EST Temperature 37 ??C (98.6 ??F) 09/16/2020 12:58 PM EST Respiratory Rate - - Oxygen Saturation 99% 09/16/2020 12:58 PM EST Inhaled Oxygen Concentration - - Weight 57.7 kg (127 lb 3.2 oz) 09/16/2020 12:58 PM EST Height 162.6 cm (5' 4) 09/16/2020 12:58 PM EST Body Mass Index 21.83 09/16/2020 12:58 PM EST documented in this encounter Patient Instructions Patient InstructionsMirza Lozano MD - 09/16/2020 1:00 PM EST Get labs and x-rays today at 3L. Call or [facility] for results if you don't hear from us by next week. Further recommendations based on test results. documented in this encounter Progress Notes Mirza Lozano MD - 09/16/2020 1:00 PM EST Rheumatology Clinic: Dr. Lozano 09/16/2020 [id number] Sherly Montero is a 74 y.o. female patient whom we see in consultation for Harmony Matute MD and Gisselle Cochran MD in evaluation of a syndrome that began in September,, or almost exactly a year ago now. This all started when the patient's son-in-law, who is a residential program manager, returned from a trip to [facility]. He contracted some virus while over there and then other families caught it upon his return, including the patient. The others recovered from this flulike illness, but the patient hadpersistent symptoms for 3 to 4 months. The symptoms included exhaustion, congestion especially aftereating, headache, stiffness and pain in her hips and legs and difficulty with gait. She also lacked her usual energy and her activity level declined dramatically. On top of the baseline symptoms, in 10/2019 she developed secondary sinus infections for which she had to go on Keflex. That helped with thesinus symptoms, but she continued to have the symptoms described above, although gradually declininginto November and December. Then in January, she received a shingles vaccine and, whether coincidence or not, things seem to deteriorate again. She became more achy from the waist down, had difficulty with her gait, decreased her activity, became increasingly tired and weak, and, according to her daughter, looked like . Prior to this, she had been one of the most energetic people her daughter had never met. They had actually built a house together over a several year period. She also exercised avidly, doing one hour of cardio, weight lifting, and stretching, four times a week. She also helped take care of the family's large and small animals and help with the care of her grandchildren. Into the summer months, all of that became impossible. She has lost about 8 pounds over this last year, including alot of muscle mass, especially in her legs and to a lesser extent her arms. That is despite eating okay through all of this. She says right at the moment, her appetite is fine and her weight seems deon holding steady. As the symptoms persisted into the summer, she ended up seeing Dr. Gisselle Cochran in [place] in 04/2020. She had laboratory work which was essentially normal, except for an elevated rheumatoid factor at 46 with a normal CCP. Her NICOLE was also negative and her inflammatory markers were normal along the way. She also tested negative for Lyme disease. In any case, Dr. Rodriguez put her on an elimination diet, with no dairy, soy, wheat, gluten, nightshade vegetables, refined sugar, eggs, or coffee, with only green tea as a source of caffeine. She also put her on a number of supplements. She started to improve slowly with these measures. She did have one setback where she awoke one morning feeling terrible, like I was dying. She had nausea, sweating, palpitations with a sense of her heart fluttering. She went to the [facility] and had a cardiac work-up that was negative. Those symptoms gradually abated, and she is definitely felt better as of late. She says she now has on average days where she feels 5-6/10 w ith 10 being the best, and occasional days where she even feels 8/10. That compared to the beginningof all this when she felt 1/10. But she is certainly not completely out of the abreu. She still gets quite exhausted. She has a lot of gelling phenomena, where if she sits for any length of time in a chair, when she goes to get up she will be stiff and somewhat uncomfortable in the hips. It takes her a while to get going. She feels as if she has aged many years over the last one year. She is nowhere near back to her prior activity level. On her map of where her discomfort is, it is clearly from the waist down, especially the hip girdle down into the calves and sparing the feet. Her hands are spared as well. She has rotator cuff problems with the shoulders that has limited abduction there, but that is old and hasn't really changed. She is not having significant pain in the shoulder girdle. She has had issues with the hips in thepast. She has broken both hips, one in 2014 and the other in 2016, and had to have hardware placed after each. But the orthopedist told her that her hip joints themselves actually looked pretty good. She has not had recent x-rays. Other than the change in her diet and the supplements, she really hasn't taken much in the way of medication. She has used Advil as needed, as well as curcumin supplements and Arthroben. She does find that she has to be very careful about what she eats or her symptoms will flare. She is trying to reintroduce things that were removed and she has found some things that definitely make her feel worse, including wheat, dairy, and eggs. This will precipitate nasal congestion and phlegm production, headache, and just a sense of feeling ill. She doesn't specifically have chronic GI symptoms, but she did have a concerning episode just last night where she had excruciating abdominal pain that she describesas gas pain. She couldn't find any obvious explanation for why this was happening. She tried some home remedies and they didn't work. Eventually it let up on its own, but the episode was disturbing. She has not formally been diagnosed with celiac disease. She tells me that Dr. Cochran ordered a full c eliac disease panel. On an extensive connective tissue disease review of systems, she does not have joint swelling with this. She believes that the hip pain is coming from the joints and not from the periarticular muscles.She denies Raynaud's. She doesn't really have significant respiratory symptoms, other than this congestion and phlegm production. She has no back pain, upper or lower. She is not really describing neurogenic claudication or other symptoms of spinal stenosis. As mentioned, her hands and feet have been spared. She denies rashes. She does have mild dry eyes, but not dry mouth. She does mention a problemwith depth perception that may be contributing to her gait problems. She has not seen an presto log operator recently. Other symptoms include labile hypertension, the palpitations, difficulty sleeping, andbrain fog. In terms of possibly contributory family history, her father had rheumatoid arthritis. A summary of this illness was brought along by her daughter, Jennifer, who accompanied her to the visit. The summary is scanned into the electronic medical record. Past Medical History Generally very healthy. Recent borderline hypertension. Status post right knee torn ligament repair 1984. Status post cholecystectomy 1995. Status post hysterectomy 2004. Status post broken left hip with pinning 2014. Status post broken right hip with pinning 2016. Medications Medications 09/16/20 1300 Medication Sig Taking? estradioL (ESTRACE) 0.01 % (0.1 mg/gram) Cream Place 1 g vaginally. Yes Advil as needed. Curcumin supplement. Arthroben supplement. Full list of current supplements in scanned summary. Social History She was born in [facility] and now lives in [facility]. She is and her is alive at age 76. She never smoked. She does not drink. She denies a problem with alcohol or drugs. As mentioned in the HPI, she used to be very active, working out for an hour four times a week, and doing multiple chores and projects around the house. She sleeps 7 hours a night, but lately has had variable restorative sleep. She has three children. Family History Her father at age 97 from heart failure. He also had hypertension, diabetes, rheumatoid arthritis, and osteoarthritis. Her mother at age 89 from dementia. She had a history of breast cancer and osteoporosis. She had two siblings, one of whom . A brother had alcoholism. A brother has/had glioblastoma. She has three children, ages 47, 44, and 42. They're all in excellent health. Review of Systems Positive for generalized fatigue and weakness, dry eyes, ringing in her years and some loss of hearing, hoarseness, palpitations, nocturia, joint stiffness sometimes lasting all day, muscle weakness, headaches, dizziness and depth perception difficulties, memory loss, and some recent difficulty sleeping that has gotten better with melatonin. Otherwise, the rheumatology, cardiology, pulmonary, GI, ,neurology, dermatology, and hematology review of systems is negative or non-contributory. Physical Exam: She is a pleasant, healthy-appearing woman who is not acutely ill. She is at or near her ideal weight. She is accompanied by her daughter, Jennifer, who is very supportive and feels insome of the history details. Blood pressure 143/79, pulse 73, temperature 37 ??C (98.6 ??F), temperature source Temporal, height 162.6 cm (5' 4), weight 57.7 kg (127 lb 3.2 oz), SpO2 99 %. Skin: Clear. No notable rashes. HEENT: PERRL, EOM+, no eye inflammation. Mask in place. Neck: Supple. No lymphadenopathy or thyromegaly. Lungs: Clear. Heart: Regular rhythm and rate without murmur, gallop, or rub. Abdomen: Benign. No masses, tenderness, or organomegaly. Extremities: No edema. Good distal pulses. Musculoskeletal: She has obvious degenerative changes in her hands involving the DIP and PIP joints with typical Heberden's and Tatiana's nodes, respectively. She does have some mild soft tissue swelling to several PIP joints. In addition, her MCPs are prominent, but this is due to hyperostosis and not synovitis. Both her thumbs are involved, with OA of the IP, MCP, and basilar joints. Importantly, none of these joints in the hands are tender. Right wrist is slightly prominent due to an old Colles'fracture, but there is no pain or inflammation, and range of motion is normal. The left wrist is normal. Both elbows have flexion contractures, left greater than right. She was unaware of this. There is no inflammation and range of motion is otherwise normal. She tends to keep her upper arms at her side related to the old rotator cuff disease. Passive range of motion however is excellent, without crepitance or pain. Her hip exam is definitely abnormal. On the right, she has a mild decrease in internal and external rotation. Range of motion is not painful. On the left, however, she has lost significant internal and external rotation and forcing that produces significant pain. Her right knee has an old surgical scar below the patella at the midline. She has a flexion contracture of that right knee. Range of motion is notable for grinding crepitance consistent with advanced degenerative disease there. The knee is slightly warm and has a small effusion. Flexion is limited to about 80 degrees. The left knee has mild crepitance on range of motion, but is otherwise normal, with no warmth or effusion.Her ankles are fine. Distal feet show minor degenerative changes, including a couple of hammertoes. There is no synovitis. Neuro: 5/5 proximal muscle strength in the upper and lower extremities, although she was a bit tentative about flexing the left hip. Toes downgoing. Assessment & Plan: The patient, her daughter, and I had a long discussion about her situation. In many ways, Sherly has improved since around May when she started the elimination diet and the supplements through Dr. Rodriguez. However, she's certainly not back to her old self. Her residual symptoms at this point are mainly stiffness and discomfort in the hip girdle and down the legs, and perhapssecondary difficulty with gait and activity. At this point, clearly the hips are the focal point of the residual morbidity, especially the left hip, where she has a grossly abnormal exam. She has fractured both hips within the past 5 years, but got away with just pinning. Although she doesn't complainabout it as much, she also has advanced degenerative disease of the right knee. Whatever this inflammatory process was that started back in September 2019, it appears to have quieted down significantly now. This appeared to be a reaction to what ever infection the son-in-law brought home from [facility], and then it was rekindled again when she got the shingles vaccine in January. There is also a definite dietary component, and perhaps she does have underlying celiac disease. But since the late summer/early fall, corresponding to when she changed her diet through Dr. Cochran recommendations, things have gotten progressively better. What she is left with now is mainly the hip and lower extremity issues and their effects on her activities, including even just walking steadily. We discussed that it would appear at this point the inflammatory aspect is gone. I think based on exam, her main problems are osteoarthritis of the left hip and right knee. We'll get x-rays there. I also think during the course of this systemic illness, she became deconditioned and debilitated, and actually lost muscle mass, which is also contributing to her inability to recuperate. Depending on whatthe x-rays show, we may have her go to physical therapy to try and get moving again, with the understanding of the limitations due to the pandemic. So the plan today is to get lab work just to make sure things are still quiet there, and x-rays of the hips and knees. We'll discuss those results with the patient and her daughter next week. They understood the plan. Visit Diagnoses: 1. Hip pain 2. Chronic pain of both knees 3. Arthralgia, unspecified joint 4. Primary osteoarthritis involving multiple joints 5. Chondrocalcinosis 6. Osteopenia, unspecified location 7. Closed fracture of both hips, sequela Results for SHERLY MONTERO ( ) Ref. Range 09/16/2020 15:03 WBC Latest Ref Range: 4.0 - 9.5 x10(3)/mcL 6.5 RBC Latest Ref Range: 4.00 - 5.21 x10(6)/mcL 4.21 Hemoglobin Latest Ref Range: 11.7 - 15.5 gm/dL 12.8 Hematocrit Latest Ref Range: 35.7 - 45.8 % 37.2 MCV Latest Ref Range: 82.6 - 94.4 fL 88.4 MCH Latest Ref Range: 27.1 - 32.0 pg 30.4 MCHC Latest Ref Range: 31.7 - 35.0 gm/dL 34.4 RDWSD Latest Ref Range: 37.0 - 46.0 fL 42.8 RDWCV Latest Ref Range: 11.5 - 14.1 % 13.2 Platelets Latest Ref Range: 145 - 357 x10(3)/mcL 245 MPV Latest Ref Range: 7.6 - 12.9 fL 9.5 nRBC % Auto Latest Units: % 0.0 nRBC Abs Auto Latest Ref Range: 0.000 - 0.000 x10(3)/mcL 0.000 Neutr Abs (ANC) Latest Ref Range: 1.70 - 6.10 x10(3)/mcL 4.26 Neutrophils % Latest Units: % 65.6 Immature Gran % Latest Units: % 0.50 Lymphocytes % Latest Units: % 24.7 Monocytes % Latest Units: % 7.7 Eosinophils % Latest Units: % 1.2 Basophils % Latest Units: % 0.3 Greta Gran Abs Latest Ref Range: 0.00 - 0.04 x10(3)/mcL 0.03 Lymphocytes Abs Latest Ref Range: 0.9 - 3.2 x10(3)/mcL 1.6 Monocyte Abs Latest Ref Range: 0.3 - 0.9 x10(3)/mcL 0.5 Eosinophils Abs Latest Ref Range: 0.0 - 0.4 x10(3)/mcL 0.1 Basophils Abs Latest Ref Range: 0.0 - 0.1 x10(3)/mcL 0.0 Sed Rate Latest Ref Range: 3 - 46 mm/hr 7 Phosphorus Latest Ref Range: 2.5 - 4.5 mg/dL 3.6 25-OH Vit D Total Latest Ref Range: 21 - 100 ng/mL 41 Anti-Cyc Cit Peptide Latest Ref Range: <=4.9 unit/mL <0.5 RF Latest Ref Range: <=14 IU/mL 80 (H) CRP Latest Ref Range: <=4.9 mg/L 0.3 PTH Latest Ref Range: 15 - 65 pg/mL 32 EXAMINATION: XR KNEE 1-2 VIEWS BILAT (GENERIC) CLINICAL HISTORY: Lower extremity pain. Knee OA on exam. R>L. Please eval for OA severity., , entered by ordering service TECHNIQUE: AP lateral views of both knees, 2 views, standing COMPARISON: none ?? FINDINGS: ?? Bones * Decreased bone mineralization. * Right femur-a screw in supracondylar area likely is related to prior ligament repair. ?? Knee Joints Small well-corticated ossifications in posterior soft tissues of both knees resemble ossific bodies in popliteal cysts. * Right-severely narrowed medial and lateral compartments, large osteophyte formation and subchondral sclerosis. There is slight lateral tibial subluxation related to degenerative change. * Left-minimal medial joint space narrowing and small osteophyte formation. ?? Soft tissues Diffuse chondrocalcinosis in both knee joints. ?? IMPRESSION 1. Osteoarthropathy of both knees with severely narrowed right medial and lateral joint spaces 2. Bilateral chondrocalcinosis. Electronically signed by: Asia Tinajero MD, [facility]([phone]), at 09/16/2020 3:02 PM EXAMINATION: XR PELVIS AND HIP 2 VIEWS BILATERAL CLINICAL HISTORY: Previous hip frractures pinned. Now with increasing hip pain. Exam suggests adnvanced OA left. ? OA, JSN, etc. TECHNIQUE: 5 views of the pelvis and hips COMPARISON: None ?? FINDINGS: ?? Right hip: Dynamic compression screw is intact without adjacent lucency, perihardware fracture or bone malalignment. No fracture line is seen. Mild superior hip joint space narrowing is accompanied by marginal osteophytes. No focal soft tissue abnormality. ?? Left hip: Two partially threaded, cannulated screws bridge the femoral neck. Hardware is intact without adjacent lucency, fracture or bone malalignment. No fracture line is seen. Mild superior hip joint space narrowing is accompanied by marginal osteophytes. No focal soft tissue abnormality. ?? Pelvis: Bones are intact with diffusely decreased mineralization, noting nondisplaced fractures could be obscured in the posterior pelvis and sacrum on the basis of bowel contents. Mild joint space narrowing and small osteophytes are present at the inferior sacroiliac joints and pubic symphysis. Nonobstructive bowel gas pattern. Multilevel lumbar spondylosis. ?? IMPRESSION ?? 1. Healed, hardware reduced femoral neck fractures without radiographic finding of complication. ?? 2. Moderate osteoarthropathy at the hips. No acute radiographic abnormality. Electronically signed by: Aparna Gonzalez MD, [facility] ([phone]), at 09/16/2020 2:56 PM documented in this encounter Plan of Treatment Scheduled Orders Name Type Priority Associated Diagnoses Order S chedule CBC (with Diff) Lab Routine Arthralgia, unspecified j oint Expected: 09/16/2020 (Approximate), Expires: 09/17/2021 documented as of this encounter Procedures Procedure Name Priority Date/Time Associated Diagnosis Comme nts HC C-REACTIVE Routine 09/16/2020 3:03 PM Arthralgia, Results for this PROTEIN EST unspecified joint procedure are in the results section. PTH Routine 09/16/2020 3:03 PM Results f or this EST procedure are i n the results section. HC CYCLIC CITRULLINE Routine 09/16/2020 3:03 PM Arthralgia, R esults for this PEPTIDE EST unspecified joint procedure are in the results section. HEMOGRAM Routine 09/16/2020 3:03 PM Arthralgia, Results f or this EST unspecified joint procedure are in the results section. DIFFERENTIAL, Routine 09/16/2020 3:03 PM Arthralgia, Results for this AUTOMATED EST unspecified joint procedure are in the results section. VITAMIN D, Routine 09/16/2020 3:03 PM Results f or this 25-HYDROXY EST procedure are i n the results section. HC ESR-SEDIMENTATION Routine 09/16/2020 3:03 PM Arthralgia, R esults for this RATE, BLOOD EST unspecified joint procedure are in the results section. HC CBC,PLT & AUTO Routine 09/16/2020 3:03 PM Arthralgia, DIFF EST unspecified joint HC RHEUMATOID FACTOR Routine 09/16/2020 3:03 PM Arthralgia, R esults for this EST unspecified joint procedure are in the results section. PHOSPHORUS Routine 09/16/2020 3:03 PM Results f or this EST procedure are i n the results section. documented in this encounter Results Vitamin D, 25-Hydroxy (09/16/2020 3:03 PM EST) Patholo gist Method Time Signature 25-OH Vit D 41 21 - 100 [facility] Total ng/mL [facility] 25-OH Vit D Sufficient [facility] Specimen Anatomical Collection Method Collection Time Receive d Time (Source) Location / / Volume Laterality Blood specimen Venous Draw / 09/16/2020 3:03 PM 2019 4:54 (specimen) Unknown EST PM EST Resulting Agency Comment Spec In Lab Mirza Lozano MD CHEMISTRY ORDERABLES Performing Organization Address City/[facility] [place] [address] Phosphorus (09/16/2020 3:03 PM EST) P athologist Signature Phosphorus 3.6 2.5 - 4.5 [facility] mg/dL [facility] Specimen Anatomical Collection Method Collection Time Receive d Time (Source) Location / / Volume Laterality Blood specimen Venous Draw / 09/16/2020 3:03 PM 2019 4:54 (specimen) Unknown EST PM EST Resulting Agency Comment Spec In Lab Mirza Lozano MD CHEMISTRY ORDERABLES Performing Organization Address City/[facility]/ZIP [place] [address] [facility] [address] [address] PTH (09/16/2020 3:03 PM EST) athologist Signature PTH 32 15 - 65 [facility] pg[facility]mL [facility] Specimen Anatomical Collection Method Collection Time Receive d Time (Source) Location / / Volume Laterality Blood specimen Venous Draw / 09/16/2020 3:03 PM 2019 8:53 (specimen) Unknown EST PM EST Resulting Agency Comment Spec In Lab Mirza Lozano MD CHEMISTRY ORDERABLES Performing Organization Address City/State/ZIP Code Phon e Number [place] [phone] [facility] [address] Differential, Automated (09/16/2020 3:03 PM EST) athologist Signature Neutrophils % 65.6 % [facility] Neutr Abs (ANC) 4.26 1.70 - [facility] 6.10 [facility] x10(3)/[facility] LABORATORY Lymphocytes % 24.7 % [facility] Lymphocytes Abs 1.6 0.9 - 3.2 [facility] x10(3)/[facility] Monocytes % 7.7 % [facility] Monocyte Abs 0.5 0.3 - 0.9 [facility] x10(3)/[facility] Eosinophils % 1.2 % [facility] Eosinophils Abs 0.1 0.0 - 0.4 [facility] x10(3)/[facility] Basophils % 0.3 % [facility] Basophils Abs 0.0 0.0 - 0.1 [facility] x10(3)/[facility] Immature Gran % 0.50 % [facility] Comment: Immature granulocytes(IG's)percentage an d absolute count will include metamyelocytes, myelocytes, and promyelo cytes. Blood smears from CBCs yielding IG's will be scanned manually for concor dance. If this scan disagrees with the automated IG or if promyelocytes are not ed, a manual differential will be performed. Greta Gran Abs 0.03 0.00 - 0.04 x10(3)/[facility] Y [facility] Specimen Anatomical Collection Method Collection Time Receive d Time (Source) Location / / Volume Laterality Blood specimen 09/16/2020 3:03 PM 020 3:26 (specimen) EST PM EST Resulting Agency Comment Spec In Lab Mirza Lozano MD HEMATOLOGY ORDERABLES Performing Organization Address City/State/Z[place] [address] Hemogram (09/16/2020 3:03 PM EST) athologist Signature WBC 6.5 4.0 - 9.5 [facility] x10(3)/[facility] RBC 4.21 4.00 - [facility] 5.21 [facility] x10(6)/[facility] LABORATORY Hemoglobin 12.8 11.7 - [facility] 15.[facility] gm/dL [facility] Hematocrit 37.2 35.7 - [facility] 45.8 % [facility] MCV 88.4 82.6 - [facility] 94.4 [facility] LABORATORY MCH 30.4 27.1 - [facility] 32.0 pg [facility] MCHC 34.4 31.7 - [facility] 35.0 gm/dL [facility] Platelets 245 145 - 357 [facility] x10(3)/[facility] RDWSD 42.8 37.0 - [facility] 46.0 [facility] LABORATORY RDWCV 13.2 11.5 - [facility] 14.1 % [facility]ORY MPV 9.5 7.6 - 12.9 [facility] LABORATORY nRBC % Auto 0.0 % [facility] LAB[facility] nRBC Abs Auto 0.000 0.000 - [facility] 0.000 [facility] x10(3)/[facility] LABORATORY Specimen Anatomical Collection Method Collection Time Receive d Time (Source) Location / / Volume Laterality Blood specimen 09/16/2020 3:03 PM 020 3:26 (specimen) EST PM EST Resulting Agency Comment Spec In Lab Mirza Lozano MD HEMATOLOGY ORDERABLES Performing Organization Address City/State/[place] [address] Cyclic Citrullinated Peptide (09/16/2020 3:03 PM EST) athologist Signature Anti-Cyc Cit <0.5 <=4.9 [facility] Peptide unit/mL [facility]OR[facility]ORY Specimen Anatomical Collection Method Collection Time Receive d Time (Source) Location / / Volume Laterality Blood specimen 09/16/2020 3:03 PM 020 3:26 (specimen) EST PM EST Resulting Agency Comment Spec In Lab Mirza Lozano MD CHEMISTRY ORDERABLES Performing Organization Address City/[facility]/ZIP Code Phon e Number [address] (ABNORMAL) Rheumatoid factor, quant (09/16/2020 3:03 PM EST) athologist Signature RF 80 (H) <=14 IU/mL [facility] Specimen Anatomical Collection Method Collection Time Receive d Time (Source) Location / / Volume Laterality Blood specimen 09/16/2020 3:03 PM 020 3:26 (specimen) EST PM EST Resulting Agency Comment Spec In Lab Mirza Lozano MD IMMUNOLOGY ORDERABLES Performing Organization Address City/[facility]/[place] [address] CRP, acute inflammation (09/16/2020 3:03 PM EST) athologist Signature CRP 0.3 <=4.9 mg/L [facility] Specimen Anatomical Collection Method Collection Time Receive d Time (Source) Location / / Volume Laterality Blood specimen 09/16/2020 3:03 PM 020 3:26 (specimen) EST PM EST Resulting Agency Comment Spec In Lab Mirza Lozano MD CHEMISTRY ORDERABLES Performing Organization Address City/[facility]/ZIP Code Phon e Number [address] Sedimentation rate (09/16/2020 3:03 PM EST) athologist Signature Sed Rate 7 3 - 46 [facility] mm/hr [facility] Comment: Effective August 28, 2019 new capillar y photometric technology has resulted in a change in reference ranges. It is r ecommended that each ESR result be reviewed with its own age appropriate re ference range. Specimen Anatomical Collection Method Collection Time Receive d Time (Source) Location / / Volume Laterality Blood specimen 09/16/2020 3:03 PM 020 3:26 (specimen) EST PM EST Resulting Agency Comment Spec In Lab Mirza Lozano MD HEMATOLOGY ORDERABLES Performing Organization Address City/State/[place] [address] XR Pelvis and Hip 2 Views Bilateral [...] For questions regarding this report, please contact [facility] number below. ? Narrative 09/16/2020 2:56 PM EST EXAMINATION: XR [...] below. Electronically signed by: Aparna daly MD, [facility] ([phone]), at 09/16/2020 2:56 PM Mirza Lozano MD IMG DX ORDERABLES XR Knee 1-2 Views Bilat (Generic) (09/16/2020 2:43 PM EST) Anatomical Region Laterality Modality Knee Bilateral Digital Radiography Specimen (Source) Anatomical Location Collection Method / Collectio n Time Received Time / Laterality Volume Impressions 09/16/2020 3:02 PM EST 1. ??Osteoarthropathy of both knees with severely narrowed right medial and lateral joint spaces 2. ??Bilateral chondrocalcinosis. Thank you for letting us participate in the care of this patient. For questions regarding this report, please contact e number below. ? Electronically signed by: sAia Tinajero MD, [facility] ([phone]), at 09/16/2020 3:02 PM Narrative 09/16/2020 3:02 PM EST EXAMINATION: XR KNEE 1-2 VIEWS BILAT (GENERIC) CLINICAL HISTORY: Lower extremity pain. Knee OA on exam. R>L. Please eval for OA severity., , entered by ordering service TECHNIQUE: AP lateral views of both knee s, 2 views, standing COMPARISON: none FINDINGS: Bones * ??Decreased bone mineralization. * ??Right femur-a screw in supracondylar area likely is related to prior ligament repair. Knee Joints Small well-corticated ossifications in p osterior soft tissues of both knees resemble ossific bodies in popliteal cys ts. * ??Right-severely narrowed medial and l ateral compartments, large osteophyte formation and subchondral sclerosis. The re is slight lateral tibial subluxation related to degenerative change. * ??Left-minimal medial joint space narr owing and small osteophyte formation. Soft tissues Diffuse chondrocalcinosis in both knee j oints. Procedure Note Asia Tinajero MD - 09/16/2020Formatt ing of this note might be different from the original. EXAMINATION: XR KNEE 1-2 VIEWS BILAT (GE NERIC) CLINICAL HISTORY: Lower extremity pain. Knee OA on exam. R>L. Please eval for OA severity., , entered by ordering service TECHNIQUE: AP lateral views of both knee s, 2 views, standing COMPARISON: none FINDINGS: Bones * Decreased bone mineralization. * Right femur-a screw in supracondylar a danny likely is related to prior ligament repair. Knee Joints Small well-corticated ossifications in p osterior soft tissues of both knees resemble ossific bodies in popliteal cys ts. * Right-severely narrowed medial and lat eral compartments, large osteophyte formation and subchondral sclerosis. The re is slight lateral tibial subluxation related to degenerative change. * Left-minimal medial joint space narrow ing and small osteophyte formation. Soft tissues Diffuse chondrocalcinosis in both knee j oints. IMPRESSION 1. Osteoarthropathy of both knees with s everely narrowed right medial and lateral joint spaces 2. Bilateral chondrocalcinosis. Thank you for letting us participate in the care of this patient. For questions regarding this report, please contact e number below. Electronically signed by: Asia Tinajero MD, [facility] ([phone]), at 09/16/2020 3:02 PM Mirza Lozano MD IMG DX ORDERABLES documented in this encounter Visit Diagnoses Diagnosis Hip pain Pain in joint, pelvic region and thigh Chronic pain of both knees Arthralgia, unspecified joint Primary osteoarthritis involving multipl e joints Chondrocalcinosis Other disorder of calcium metabolism Osteopenia, unspecified location Closed fracture of both hips, sequela Hip pain Pain in joint, pelvic region and thigh Arthralgia, unspecified joint Chronic pain of both knees Arthralgia, unspecified joint documented in this encounter Care Teams Genetic Coordinator Relationship Specialty Start Date End Date Harmony Matute MD PCP - General General Internal Medicine 04/06/20 02/20/22 [address] [place] [address] documented as of this encounter
--- OUTSIDE RECORDS SUMMARY | 2022-04-01 00:47 | XMS_ITS | Encounter Summary ---
:1945 Author Organization [facility] [place] [address] Care Team Providers Name Role Phone Albina Canales MD Primary Care Provider Reason for Referral Physical Therapy (Routine) - Closed Specialty Diagnoses / Procedures Referred By Contact Refer red To Contact Physical Therapy Diagnoses Balance problem Albina Will MD [facility] Pt Rehab [address] [facility] [address] [place], [place] [id number] [place] [phone] Fax: Referral ID Status Reason Start Date Expiration Date Visits V isits Requested Authorized [id number] Closed Evaluate and 02/21/2022 02/21/2023 12 12 Treat PCP Updated and/or Approved Encounter Details Date Type Department Care Team Description 02/21/2022 Transcribe Orders eDH Incoming Albina Canales MD Balance problem; Referrals [address] [phone] [address] [place] [address] Social History Tobacco Use Types Packs/Day Years Used Date Never Smoker Smokeless Tobacco: Never Used Sex Assigned at Date Recorded Not on file documented as of this encounter Plan of Treatment Scheduled Referrals Name Type Priority Associated Diagnoses Order S chedule Referral to Outpatient Referral Routine Balance prob joseph Ordered: Physical Therapy [place] 02/21/2022 documented as of this encounter Visit Diagnoses Diagnosis Balance problem Other symptoms involving nervous and mus culoskeletal systems Camptocormia Conversion disorder documented in this encounter Care Teams Barber Apprentice Relationship Specialty Start Date End Date Albina Canales MD PCP - General Family Medicine 02/21/22 [address] [place] [address] documented as of this encounter
--- OUTSIDE RECORDS SUMMARY | 2022-04-01 00:47 | XMS_ITS | Encounter Summary ---
:1945 Author Organization [facility] [place] [address] Care Team Providers Name Role Phone Harmony Matute MD Primary Care Provider Encounter Details Date Type Department Care Team Description 04/21/2020 Transcribe Orders Laboratory at [facility], Fatigue, unspecified type; Jeanne Juan MD Pain in joint, multiple sites; [address] ARIANA PAVEL Family history of malignant neoplasm of breast; [facility] Family history of ischemic heart disease (IHD) [id number] [facility] [phone] [place] [address] Social History Tobacco Use Types Packs/Day Years Used Date Never Assessed Sex Assigned at Date Recorded Not on file documented as of this encounter Plan of Treatment Not on filedocumented as of this encounter Results Vitamin B12 (04/21/2020 10:52 AM EDT) athologist Signature Vitamin B-12 848 232 - 1245 [facility] pg/mL [facility] LABORATORY Specimen Anatomical Collection Method Collection Time Receive d Time (Source) Location / / Volume Laterality Blood specimen 04/21/2020 10:52 0 4:05 (specimen) AM EDT PM EDT Resulting Agency Comment Spec In Lab / APD Gisselle Cochran MD CHEMISTRY ORDERABLES Performing Organization Address City/State/ZIP Code Phon e Number [place] [id number] Cyclic Citrullinated Peptide (04/21/2020 10:52 AM EDT) athologist Signature Anti-Cyc Cit <0.5 <=4.9 [facility] Peptide unit/mL [facility] LABOR[facility]ORY Specimen Anatomical Collection Method Collection Time Receive d Time (Source) Location / / Volume Laterality Blood specimen 04/21/2020 10:52 0 4:05 (specimen) AM EDT PM EDT Resulting Agency Comment Spec In Lab / APD Gisselle Cochran MD CHEMISTRY ORDERABLES Performing Organization Address City/[facility]/ZIP Code Phon e Number [address] (ABNORMAL) Rheumatoid factor, quant (04/21/2020 10:52 AM EDT) athologist Signature RF 48 (H) <=14 IU/mL [facility] LABORATORY Specimen Anatomical Collection Method Collection Time Receive d Time (Source) Location / / Volume Laterality Blood specimen 04/21/2020 10:52 0 4:05 (specimen) AM EDT PM EDT Resulting Agency Comment Spec In Lab / APD Gisselle Cochran MD IMMUNOLOGY ORDERABLES Performing Organization Address City/[facility]/ZIP Code Phon e Number [address] Vitamin D, 25-Hydroxy (04/21/2020 10:52 AM EDT) athologist Signature 25-OH Vit D 42 21 - 100 [facility] Total ng/mL [facility]ORY Comment: Please note, effective January 22, 2020, diana tional result field for Vitamin D Interpretation, and updated flagging not ification. 25-OH Vit D Interp Sufficient [facility] LABOR[facility]ORY Specimen Anatomical Collection Method Collection Time Receive d Time (Source) Location / / Volume Laterality Blood specimen 04/21/2020 10:52 0 4:05 (specimen) AM EDT PM EDT Resulting Agency Comment Spec In Lab / APD Gisselle Cochran MD CHEMISTRY ORDERABLES Performing Organization Address City/[facility]/ZIP Code Phon e Number [address] documented in this encounter Visit Diagnoses Diagnosis Fatigue, unspecified type Pain in joint, multiple sites Family history of malignant neoplasm of breast Family history of ischemic heart disease (IHD) Family history of ischemic heart disease documented in this encounter Care Teams Baker Doughnut Relationship Specialty Start Date End Date Harmony Matute MD PCP - General General Internal Medicine 04/06/20 02/20/[address] [place] [address] documented as of this encounter
--- OUTSIDE RECORDS SUMMARY | 2022-04-01 00:47 | XMS_ITS | Encounter Summary ---
:1945 Author Organization [facility] [place] [address] Care Team Providers Name Role Phone Harmony Matute MD Primary Care Provider Reason for Visit Reason Onset Date Comments Referral 12/08/2020 Encounter Details Date Type Department Care Team Description 12/08/2020 Telephone Rheumatology at [facility] Larry Dailey, [place] [phone] Social History Tobacco Use Types Packs/Day Years Used Date Never Smoker Smokeless Tobacco: Never Used Sex Assigned at Date Recorded Not on file documented as of this encounter Miscellaneous Notes Telephone Encounter - Larry Dailey RN - 12/10/2020 3:28 PM EDT Request for PT referral, would like it to list specifics to work on with PC. Seda Espino PT. [place]. [phone]. . Telephone Encounter - Larry Dailey RN - 12/08/2020 1:45 PM EDT Message routed to this RN, patient calls regarding PT referral. Returned call, unavailable. Left vm with cb#. documented in this encounter Plan of Treatment Not on filedocumented as of this encounter Visit Diagnoses Not on filedocumented in this encounter Care Teams Pickle Water Pump Operator Relationship Specialty Start Date End Date Harmony Matute MD PCP - General General Internal Medicine 04/06/20 02/20/[address] [place] [address] documented as of this encounter
--- OUTSIDE RECORDS SUMMARY | 2022-04-01 00:47 | XMS_ITS | Encounter Summary ---
:1945 [place] [address] Care Team Providers Name Role Phone Harmony Matute MD Primary Care Provider Encounter Details Date Type Department Care Team Description 05/17/2021 Transcribe Orders Laboratory at [facility] Oliveira, DiarrheaJeanne MD unspecified type [address] [facility] [phone] [facility] [phone] [place] [address] Social History Tobacco Use Types Packs/Day Years Used Date Never Smoker Smokeless Tobacco: Never Used Sex Assigned at Date Recorded Not on file documented as of this encounter Plan of Treatment Not on filedocumented as of this encounter Results Full Ova and Parasites Exam (05/17/2021 12:31 PM EDT) [facility] Method Time Signature Ova & No ova or [facility] Parasite parasites [facility] Stool seen. [facility] LABORATORY Specimen Anatomical Collection Method Collection Time Receive d Time (Source) Location / / Volume Laterality Stool 05/17/2021 12:31 05/17/2021 PM EDT 10:18 PM EDT Comment: Enter the Lab Location:->APD [place] Resulting Agency Comment Spec In Lab Gisselle Cochran MD MICROBIOLOGY - GENERAL ORDER KATLYN Performing Organization Address City/State/[place] [address] documented in this encounter Visit Diagnoses Diagnosis Diarrhea, unspecified type documented in this encounter Care Teams Re Examiner Relationship Specialty Start Date End Date Harmony Matute MD PCP - General General Internal Medicine 04/06/20 02/20/[address] [place] [address] documented as of this encounter
--- OUTSIDE RECORDS SUMMARY | 2022-04-01 00:47 | XMS_ITS | Encounter Summary ---
:1945 Author Organization [facility] [place] [address] Care Team Providers Name Role Phone Harmony Matute MD Primary Care Provider Encounter Details Date Type Department Care Team Description 09/16/2020 Laboratory Appointment Laboratory at [facility] [address] [place] [address] Social History Tobacco Use Types Packs/Day Years Used Date Never Smoker Smokeless Tobacco: Never Used Sex Assigned at Date Recorded Not on file documented as of this encounter Plan of Treatment Not on filedocumented as of this encounter Procedures Procedure Name Priority Date/Time Associated Comments Diagnosis TISSUE TRANSGLUTAMINASE Routine 09/16/2020 11:19 Results for this AB IGA AM EST procedure are i n the results section. [facility] CELIAC IGA Routine 09/16/2020 11:19 [facility] Result s for this AM EST procedure are i n the results section. documented in this encounter Results Tissue Transglutaminase Ab IgA (09/16/2020 11:19 AM EST) athologist Signature TTG IgA Ab <1.2 <4.0 (Negative) LABORATORY unit/mL Comment: Test Performed by: [facility] [address] [id number] Book Publisher: Rodney Rincon M.D. Ph. D.; CLIA# [id number] Specimen Anatomical Collection Method Collection Time Receive d Time (Source) Location / / Volume Laterality Blood specimen 09/16/2020 11:19 0 5:00 (specimen) AM EST PM EST Resulting Agency Comment Spec In Lab Gisselle Cochran MD CHEMISTRY ORDERABLES Performing Organization Address [facility] Phon e Number [facility] [address] [place], [place] [address] Celiac Sero [place] (09/16/2020 11:19 AM EST) Component Value Ref Test Analysis Performed At [facility] Range Method Time Signature Celiac Sero [facility]ELA RIVERA [place] Test ?Result ?Flag ??Unit ?? RefValue [facility] Celiac Disease Serology [place] ??Immunoglobulin A (IgA), S ? 266 ? mg/dL ??61 - 356 ??Celiac Disease Interpretation ? SEE COMME NTS ?Negative serology. Celiac disease unlikely. However, ?approximately 10% of patients with celiac disease are ?seronegative. Also, patients who are already adhering to a ?gluten-free diet may be seronegative. If celiac diseas e is ?highly clinically suspected, consider HLA-DQ typing. ?Test Performed by: ?[facility] ?[address] [place] [address] ?Book Publisher: Rodney Rincon M.D. Ph.D.; CLIA# [id number] Specimen Anatomical Collection Method Collection Time Receive d Time (Source) Location / / Volume Laterality Blood specimen 09/16/2020 11:19 0 5:00 (specimen) AM EST PM EST Resulting Agency Comment Spec In Lab Gisselle Cochran MD CHEMISTRY ORDERABLES Performing Organization Address City/[facility] Phon e Number [facility]IELA RIVER[facility] [address] [place], [place] [address] documented in this encounter Visit Diagnoses Diagnosis Arthritis Arthropathy, unspecified, site unspecifi ed documented in this encounter Care Teams Instructional Leader Relationship Specialty Start Date End Date Harmony Matute MD PCP - General General Internal Medicine 04/06/20 02/20/22 [address] [facility] [place] [address] documented as of this encounter
--- OUTSIDE RECORDS SUMMARY | 2022-04-01 00:47 | XMS_ITS | Encounter Summary ---
:1945 Author Organization [facility] [place] [address] Care Team Providers Name Role Phone Harmony Matute MD Primary Care Provider Encounter Details Date Type Department Care Team Description 04/06/2020 Transcribe Orders Laboratory at Gisselle Oliveira, Fatigue, unspecified type; Jeanne Rodriguez MD Arthralgia, unspecified joint; 10 Gabriela Rodriguez [address] ARIANA GAYLL Family history of diabetes m ellitus; [facility] Family history of malignant neoplasm of breast; [id number] [place], Family history of ischemic h eart disease (IHD) [phone] [place] [address] Social History Tobacco Use Types Packs/Day Years Used Date Never Assessed Sex Assigned at Date Recorded Not on file documented as of this encounter Plan of Treatment Not on filedocumented as of this encounter Results Methylmalonic acid, serum (04/06/2020 9:41 AM EDT) [facility] Method Time Signature Methylmalonic Acid 0.14 <=0.40 G[facility]ELA RODRIGUE[facility] nmol/mL LABORATORY Comment: ADDITIONAL INFORMATIO N This test was developed and its performa nce characteristics determined by [facility] in a manner co nsistent with CLIA requirements. This test has not been gonzalo ared or approved by the U.S. Food and Drug Administration. Test Performed by: [address] [address] Line Service Technician: Rodney Rincon M.D. Ph. D.; IA# [id number] Specimen Anatomical Collection Method Collection Time Receive d Time (Source) Location / / Volume Laterality Blood specimen 04/06/2020 9:41 AM 020 4:27 (specimen) EDT PM EDT Resulting Agency Comment Spec In Lab / APD Gisselle Cochran MD CHEMISTRY ORDERABLES Performing Organization Address City/State/ZIP Code Phon e Number [facility] [address] [facility] [place], [place] [address] Homocysteine Total, Plasma (04/06/2020 9:41 AM EDT) P athologist Signature Homocyst Tot 6 <=15 [facility] LABORATORY Specimen Anatomical Collection Method Collection Time Receive d Time (Source) Location / / Volume Laterality Blood specimen 04/06/2020 9:41 AM 020 4:15 (specimen) EDT PM EDT Resulting Agency Comment Spec In Lab / APD Gisselle Cochran MD CHEMISTRY ORDERABLES Performing Organization Address City/State/[place] [address] T4, free (04/06/2020 9:41 AM EDT) P athologist Signature Free T4 1.10 0.93 - 1.70 [facility] ng/dL LABORATORY Specimen Anatomical Collection Method Collection Time Receive d Time (Source) Location / / Volume Laterality Blood specimen 04/06/2020 9:41 AM 020 1:16 (specimen) EDT PM EDT Resulting Agency Comment Spec In Lab / APD Gisselle Cochran MD CHEMISTRY ORDERABLES Performing Organization Address City/State/ZIP Code Phon e Number [facility] [address] [place], [place] [address] T3, free (04/06/2020 9:41 AM EDT) P athologist Signature T3, Free 2.5 2.0 - 4.4 [facility] pg/mL LABORATORY Specimen Anatomical Collection Method Collection Time Receive d Time (Source) Location / / Volume Laterality Blood specimen 04/06/2020 9:41 AM 020 1:16 (specimen) EDT PM EDT Resulting Agency Comment Spec In Lab / APD Gisselle Cochran MD CHEMISTRY ORDERABLES Performing Organization Address City/[facility]/ZIP Code Phon e Number [facility] [address] [place], [place] [address] TSH (04/06/2020 9:41 AM EDT) athologist Signature TSH 1.68 0.27 - 4.20 G[facility]ELA [facility]IVER[facility] mcIU/mL LABORATORY Specimen Anatomical Collection Method Collection Time Receive d Time (Source) Location / / Volume Laterality Blood specimen 04/06/2020 9:41 AM 020 1:16 (specimen) EDT PM EDT Resulting Agency Comment Spec In Lab / APD Gisselle Cohcran MD CHEMISTRY ORDERABLES Performing Organization Address [facility] Phon e Number [facility] 10 [address] [place], [place] [address] Hemoglobin A1c (04/06/2020 9:41 AM EDT) [facility] gist Method Time Signature Hemoglobin A1C 5.2 4.3 - 5.6 [facility] % LABORATORY Est Avg Gluc See note mg/dL [facility] Comment: Estimated Average Glucose not a ppropriate for patients over 70 years of age. Specimen Anatomical Collection Method Collection Time Receive d Time (Source) Location / / Volume Laterality Blood specimen 04/06/2020 9:41 AM 020 1:16 (specimen) EDT PM EDT Resulting Agency Comment Spec In Lab / APD Gisselle Cochran MD CHEMISTRY ORDERABLES Performing Organization Address City/[facility]/ZIP [facility] [place] [place] Phon e Number [facility] [address] [place], [place] [address] (ABNORMAL) Comprehensive metabolic panel (non-fasting) (04/06/2020 9:41 AM EDT) P athologist Signature Glucose Lvl 93 65 - 199 [facility]A [facility] mg/dL LABORATORY Comment: Diabetes: >=200 mg/dL plus symp toms BUN 11 8 - 18 mg/dL LA B[facility] Creatinine 0.56 (L) 0.70 - 1.20 mg/dL LABORATORY Sodium 137 135 - 145 mmol/L LABORATORY Potassium 4.3 3.5 - 5.0 mmol/L LABORATORY Comment: Please note: ??Patients with WBC >100,00 0 may have falsely elevated Potassium levels. ??For accurate Potassium quantif ication in these patients send serum separator tube (gold top) for subsequent determinations. ??Contact the Clinical Chemistry Laboratory if there are any qu estions. Chloride 101 98 - 107 mmol/L LABORATORY CO2 25 22 - 31 mmol/L LABORATORY Anion Gap 11 5 - 15 mmol/L L ABORATORY Calcium 9.2 8.5 - 10.5 mg/dL LABORATORY Total Protein 6.9 6.1 - 8.0 gm/dL LABORATORY Albumin 4.1 3.2 - 5.2 gm/dL LABORATORY AST 22 0 - 30 unit/L L ABORAT[facility] ALT 16 0 - 30 unit/L L [facility] Alk Phos 43 35 - 105 unit/L LABORATORY Total Bilirubin 0.6 0.2 - 1.3 mg/dL LABORATORY Estimated GFR 91 >=60 mL/min/1.73 m?? LABORATORY Comment: The eGFR was calculated using the CKD-EP I equation. As with all creatinine based estimates of kidney function, eGFR values calculated with the CKD-EPI equation are not accurate in patients wi th acute kidney failure, extremes of body mass or the acutely ill. [email or web address] eGFR 105 >=60 mL/min/1.73 m?? LABORATORY Comment: The eGFR was calculated using the CKD-EP I equation. As with all creatinine based estimates of kidney function, eGFR values calculated with the CKD-EPI equation are not accurate in patients wi th acute kidney failure, extremes of body mass or the acutely ill. [email or web address] Specimen Anatomical Collection Method Collection Time Receive d Time (Source) Location / / Volume Laterality Blood specimen 04/06/2020 9:41 AM 020 1:16 (specimen) EDT PM EDT Resulting Agency Comment Spec In Lab / APD Gisselle Cochran MD CHEMISTRY ORDERABLES Performing Organization Address City/State/ZIP Code Phon e Number [facility] [address] [place], [place] [address] CRP, cardiac risk (HS CRP) (04/06/2020 9:41 AM EDT) P athologist Signature CRP High Sens 1.0 mg/L [facility] Comment: For cardiac risk assessment, two values (fasting or nonfasting sample acceptable) taken at least 2 weeks apart , should be averaged to provide a more reliable estimate of marker level. This laboratory will be using the recomm endations from the AHA/CDC Scientific Statement for interpretations of future risks of cardiovascular events: ?<1.0 mg/L: low risk ?1.0 to 3.0 mg/L: moderate ri sk ?>3.0 mg/L: high ris k ?>10.0 mg/L: Acute I nflammation Note: CRP values >10 mg/L indicate an ac hoonah inflammatory condition or infection. The >10 mg/L value should not be used for cardiac risk assessment and a repeat specimen should be collecte d at least two weeks after resolution of the acute inflammatory condition. References: 1. Bhumi BOLAND et. al. ??AHA/CDC Scientif ic Statement: Markers of Inflammation and Cardiovascular Disease. ??Circulation 2003; 107:499-511 2. Bisi PM. ??Clinical applications of C-reactive protein for cardiovascular disease detection and pre vention. ??Circulation 2003; 107:363-369 CRP Cardiac Risk Moderate Risk [facility] Specimen Anatomical Collection Method Collection Time Receive d Time (Source) Location / / Volume Laterality Blood specimen 04/06/2020 9:41 AM 020 4:15 (specimen) EDT PM EDT Resulting Agency Comment Spec In Lab / APD Gisselle Cochran MD CHEMISTRY ORDERABLES Performing Organization Address City/State/ZIP Code Phon e Number [place] [phone] Lipid Panel (Reflex Direct LDL) (04/06/2020 9:41 AM EDT) P athologist Signature Chol, Total 221 mg/dL [facility] Comment: Lower Risk: <200 mg/dL Average Risk: 200-239 mg/dL Higher Risk: >st=065 mg/dL Triglycerides 105 mg/dL L ABORATORY Comment: Average Risk/Lower Risk: <150 mg/dL Borderline High Risk: 150-199 mg/dL High Risk: 200-499 mg/dL Very High Risk: >jz=184 mg/dL HDL 79 mg/dL LABOR ATORY Comment: Males: ?? Higher Risk: <40 mg/dL Females: ?? HIgher Risk: <50 mg/dL LDL Cholesterol 121 mg/dL LABORATORY Comment: Lowest Risk: <100 mg/dL Lower Risk: 100-129 mg/dL Borderline High Risk: 130-159 mg/dL High Risk: 160-189 mg/dL Very High Risk: >nk=263 mg/dL Chol/HDL Ratio 2.8 ratio LABORATORY Lipid Interpretation See Note [facility] LABORATORY Comment: Lipid management should be guided by a p atient? s ASCVD risk, goals and preferences. ACC/AHA Guidelines recommend high intens ity statin if clinical ASCVD or LDL greater than or equal to 190 mg/dL. http://[email or web address]/DRO-GNJ-Ccggzttrv Adults aged 40-75 with LDL 70-189 mg/dL should have their 10 year ASCVD risk estimated with the ACC/AHA ASCVD risk es timator http://tools.acc.org/WQZLM-Kpof-Ldgtajvm r/ Statin should be discussed if risk great er than or equal to 7.5% in non-diabetics. With diabetes, moderate i ntensity statin is recommended if risk less than 7.5%, high intensity if risk g reater than or equal to 7.5%. Annual lipid monitoring on statins is no t necessary. Evaluate secondary causes of Triglycerid es greater than 500 mg/dL or LDL greater than 190 mg/dL: See table 6 of A CC/AHA Guideline. Lifestyle modification is a critical com ponent of ASCVD risk reduction. Specimen Anatomical Collection Method Collection Time Receive d Time (Source) Location / / Volume Laterality Blood specimen 04/06/2020 9:41 AM 020 1:16 (specimen) EDT PM EDT Resulting Agency Comment Spec In Lab / APD Gisselle Cochran MD CHEMISTRY ORDERABLES Performing Organization Address City/[facility]/ZIP Code Phon e Number [facility] [address] [place], [place] [address] Lyme IgG & IgM Antibody (04/06/2020 9:41 AM EDT) athologist Signature Lyme Screening Neg Neg [facility] LABORATORY Specimen Anatomical Collection Method Collection Time Receive d Time (Source) Location / / Volume Laterality Blood specimen 04/06/2020 9:41 AM 020 6:38 (specimen) EDT AM EDT Resulting Agency Comment Spec In Lab / APD Gisselle Cochran MD IMMUNOLOGY ORDERABLES Performing Organization Address City/[facility]/[place]IP [place] [address] Iron and TIBC (04/06/2020 9:41 AM EDT) athologist Signature Iron 108 30 - 150 [facility] mcg/dL LABORATORY TIBC 255 250 - 450 [facility] mcg/dL LABORATORY Iron Saturation 42 20 - 50 % [facility] Specimen Anatomical Collection Method Collection Time Receive d Time (Source) Location / / Volume Laterality Blood specimen 04/06/2020 9:41 AM 020 1:16 (specimen) EDT PM EDT Resulting Agency Comment Spec In Lab / APD Gisselle Cochran MD CHEMISTRY ORDERABLES Performing Organization Address City/[facility]/ZIP [facility] [place] Phon e Number [facility] [address] [place], [place] [address] NICOLE ([facility]/CGP) (04/06/2020 9:41 AM EDT) athologist Signature NICOLE Neg Neg [facility] Comment: Anti-nuclear antibodies were te sted using an indirect immunofluorescent assay. Specimen Anatomical Collection Method Collection Time Receive d Time (Source) Location / / Volume Laterality Blood specimen 04/06/2020 9:41 AM 020 1:39 (specimen) EDT PM EDT Resulting Agency Comment Spec In Lab / APD Gisselle Cochran MD IMMUNOLOGY ORDERABLES Performing Organization Address City/State/[place] [address] Ferritin (04/06/2020 9:41 AM EDT) athologist Signature Ferritin 238 30 - 400 [facility] ng/mL LABORATORY Comment: Pediatric reference ranges not verified at [facility], interpret with caution. Reference ranges for females greater maria n 50 years of age approach values for men, i.e., 30-400 ng/mL. Specimen Anatomical Collection Method Collection Time Receive d Time (Source) Location / / Volume Laterality Blood specimen 04/06/2020 9:41 AM 020 1:16 (specimen) EDT PM EDT Resulting Agency Comment Spec In Lab / APD Gisselle Cochran MD CHEMISTRY ORDERABLES Performing Organization Address City/State/ZIP Code Phon e Number [facility] [address] [place], [place] [address] documented in this encounter Visit Diagnoses Diagnosis Fatigue, unspecified type Arthralgia, unspecified joint Family history of diabetes mellitus Family history of malignant neoplasm of breast Family history of ischemic heart disease (IHD) Family history of ischemic heart disease documented in this encounter Care Teams 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
--- OUTSIDE RECORDS SUMMARY | 2022-04-01 00:47 | XMS_ITS | Encounter Summary ---
:1945 Author Organization [facility] [place] [address] Care Team Providers Name Role Phone Harmony Matute MD Primary Care Provider Encounter Details Date Type Department Care Team Description 04/21/2020 Laboratory Appointment Laboratory at [place] Fatigue, unspecified type; Angel Day Pain in joint, multiple site s; 10 Gabriela Family history of malignant neoplasm of breast; [place], [place] Family history of ischemic heart disease (IHD) [phone] Social History Tobacco Use Types Packs/Day Years Used Date Never Assessed Sex Assigned at Date Recorded Not on file documented as of this encounter Plan of Treatment Not on filedocumented as of this encounter Procedures Procedure Name Priority Date/Time Associated Diagnosis Comme nts HC CYCLIC CITRULLINE Routine 04/21/2020 10:52 Fatigue, unspeci fied Results for this PEPTIDE AM EDT type procedure are in Pain in joint, the results multiple sites section. Family history of malignant neoplasm of breast Family history of ischemic heart disease (IHD) HC VITAMIN D TOTAL-25 Routine 04/21/2020 10:52 Fatigue, unspec ified Results for this HYDROXY AM EDT type procedure are in Pain in joint, the results multiple sites section. Family history of malignant neoplasm of breast Family history of ischemic heart disease (IHD) HC RHEUMATOID FACTOR Routine 04/21/2020 10:52 Fatigue, unspeci fied Results for this AM EDT type procedure are in Pain in joint, the results multiple sites section. Family history of malignant neoplasm of breast Family history of ischemic heart disease (IHD) HC VENIPUNCTURE Routine 04/21/2020 10:52 Fatigue, unspecified Results for this AM EDT type procedure are in Pain in joint, the results multiple sites section. Family history of malignant neoplasm of breast Family history of ischemic heart disease (IHD) documented in this encounter Results Vitamin D, 25-Hydroxy (04/21/2020 10:52 AM EDT) athologist Signature 25-OH Vit D 42 21 - 100 [facility] Total ng/mL [facility] Comment: Please note, effective January 22, 2020, diana tional result field for Vitamin D Interpretation, and updated flagging not ification. 25-OH Vit D Interp Sufficient [facility] Specimen Anatomical Collection Method Collection Time Receive d Time (Source) Location / / Volume Laterality Blood specimen 04/21/2020 10:52 0 4:05 (specimen) AM EDT PM EDT Resulting Agency Comment Spec In Lab / APD Gisselle Cochran MD CHEMISTRY ORDERABLES Performing Organization Address [facility] [place] [address] (ABNORMAL) Rheumatoid factor, quant (04/21/2020 10:52 AM EDT) athologist Signature RF 48 (H) <=14 IU/mL [facility] Specimen Anatomical Collection Method Collection Time Receive d Time (Source) Location / / Volume Laterality Blood specimen 04/21/2020 10:52 0 4:05 (specimen) AM EDT PM EDT Resulting Agency Comment Spec In Lab / APD Gisselle Cochran MD IMMUNOLOGY ORDERABLES Performing Organization Address City/[facility] [place] [address] Cyclic Citrullinated Peptide (04/21/2020 10:52 AM EDT) athologist Signature Anti-Cyc Cit <0.5 <=4.9 [facility] Pe[facility] unit/mL [facility] Specimen Anatomical Collection Method Collection Time Receive d Time (Source) Location / / Volume Laterality Blood specimen 04/21/2020 10:52 0 4:05 (specimen) AM EDT PM EDT Resulting Agency Comment Spec In Lab / APD Gisselle Cochran MD CHEMISTRY ORDERABLES Performing Organization Address City/State/ZIP Code Phon e Number [place] [phone] [facility] LABOR[address]ORY Drive Vitamin B12 (04/21/2020 10:52 AM EDT) athologist Signature Vitamin B-12 848 232 - 3,316 [facility] pg/mL [facility] Specimen Anatomical Collection Method Collection Time Receive d Time (Source) Location / / Volume Laterality Blood specimen 04/21/2020 10:52 0 4:05 (specimen) AM EDT PM EDT Resulting Agency Comment Spec In Lab / APD Gisselle Cochran MD CHEMISTRY ORDERABLES Performing Organization Address City/State/[place] [address] documented in this encounter Visit Diagnoses Diagnosis Fatigue, unspecified type Pain in joint, multiple sites Family history of malignant neoplasm of breast Family history of ischemic heart disease (IHD) Family history of ischemic heart disease documented in this encounter Care Teams 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
--- OUTSIDE RECORDS SUMMARY | 2022-04-01 00:47 | XMS_ITS | Encounter Summary ---
:1945 Author Organization [facility] [place] [address] Care Team Providers Name Role Phone Harmony Matute MD Primary Care Provider Encounter Details Date Type Department Care Team Description 09/16/2020 Transcribe Orders Laboratory at Lizette Oliveira MD Arthritis [facility] Day [address] [place] [address] [place], [place] [phone] (Wo rk) Social History Tobacco Use Types Packs/Day Years Used Date Never Smoker Smokeless Tobacco: Never Used Sex Assigned at Date Recorded Not on file documented as of this encounter Plan of Treatment Not on filedocumented as of this encounter Results Celiac Sero [employer] (09/16/2020 11:19 AM EST) Component Value Ref Test Analysis Performed At [facility] Method Time Signature Celiac Sero [facility] [employer] Test ?Result ?Flag ??Unit ?? RefValue DAY [facility] Celiac Disease Serology [employer] ??Immunoglobulin A (IgA), S ? 266 ? mg/dL ??61 - 356 ??Celiac Disease Interpretation ? SEE COMME NTS ?Negative serology. Celiac disease unlikely. However, ?approximately 10% of patients with celiac disease are ?seronegative. Also, patients who are already adhering to a ?gluten-free diet may be seronegative. If celiac diseas e is ?highly clinically suspected, consider HLA-DQ typing. ?Test Performed by: ?[facility] ?[address] [place] [address] ?Carpenter Inspector: Rodney Rincon M.D. Ph.D.; CLIA# [id number] Specimen Anatomical Collection Method Collection Time Receive d Time (Source) Location / / Volume Laterality Blood specimen 09/16/2020 11:19 0 5:00 (specimen) AM EST PM EST Resulting Agency Comment Spec In Lab Gisselle Cochran MD CHEMISTRY ORDERABLES Performing Organization Address City/State/ZIP Code Phon e Number G[facility]RIELA [facility] [address] [place], [place] [address] documented in this encounter Visit Diagnoses Diagnosis Arthritis Arthropathy, unspecified, site unspecifi ed documented in this encounter Care Teams Fall Internship Relationship Specialty Start Date End Date Harmony Matute MD PCP - General General Internal Medicine 04/06/20 02/20/[address] [place] [address] documented as of this encounter
--- OUTSIDE RECORDS SUMMARY | 2022-04-01 00:47 | XMS_ITS | Encounter Summary ---
:1945 Author Organization [facility] [place] [address] Care Team Providers Name Role Phone Harmony Matute MD Primary Care Provider Encounter Details Date Type Department Care Team Description 05/17/2021 Laboratory Appointment Laboratory at [facility], unspecified [address] [place] [address] Social History Tobacco Use Types Packs/Day Years Used Date Never Smoker Smokeless Tobacco: Never Used Sex Assigned at Date Recorded Not on file documented as of this encounter Plan of Treatment Not on filedocumented as of this encounter Procedures Procedure Name Priority Date/Time Associated Comments Diagnosis CRYPTOSPORIDIUM OOCYST Routine 05/17/2021 12:31 R esults for this ANTIGEN ([facility]/CGP/APD) PM EDT proce dure are in the results section. HC C. DIFF QUIK CHEK Routine 05/17/2021 12:31 Diarrhea, Res ults for this ANTIGEN PM EDT unspecified type procedure a re in the results section. HC TRICHROME STAIN Routine 05/17/2021 12:31 Diarrhea, Resul ts for this PM EDT unspecified type procedure a re in the results section. GIARDIA ANTIGEN Routine 05/17/2021 12:31 Results for this ([facility]/CGP/APD/[facility]) PM EDT procedure are in the results section. HC VENIPUNCTURE Routine 05/17/2021 12:08 Diarrhea, Results for this PM EDT unspecified type procedure a re in the results section. documented in this encounter Results Cryptosporidium Oocyst Antigen ([facility]/CGP/APD) (05/17/2021 12:31 PM EDT) Patholo gist Method Time Signature Cryptosporidium Negative Negative [facility] LABORATORY Specimen Anatomical Collection Method Collection Time Receive d Time (Source) Location / / Volume Laterality Stool Stool / Unknown 05/17/2021 12:31 05/17/20 21 9:50 PM EDT PM EDT Resulting Agency Comment Spec In Lab Gisselle Cochran MD MICROBIOLOGY - GENERAL ORDER KATLYN Performing Organization Address City/[facility]/[place] [address] Giardia antigen ([facility]/CGP/APD/[facility]) (05/17/2021 12:31 PM EDT) Analysis Performed At [facility] logist Time Signature Giardia Screen Negative Negative [facility] Comment: Examination for other intestina l parasites requires foreign travel history. Specimen Anatomical Collection Method Collection Time Receive d Time (Source) Location / / Volume Laterality Stool Stool / Unknown 05/17/2021 12:31 05/17/20 21 9:50 PM EDT PM EDT Resulting Agency Comment Spec In Lab Gisselle Cochran MD MICROBIOLOGY - GENERAL ORDER KATLYN Performing Organization Address City/[facility]/ZIP Code Phon e Number [place], [place] [id number] [place] [address] C. Difficile Screen (05/17/2021 12:31 PM EDT) Analysis Performed At [facility] logist Time Signature C Diff Screen Negative Negative [facility]ATORY Comment: Ag/Tox Neg C. diff?? Negative [...] - GENERAL ORDER KATLYN Performing Organization Address City/[facility]/ZIP Code Phon e Number [facility] [address] [place], [place] [address] Full Ova and Parasites Exam (05/17/2021 12:31 PM EDT) Patholo gist Method Time Signature Ova & No ova or [facility] Parasite parasites [facility] Stool seen. HOSPITAL LABORATORY Specimen Anatomical Collection Method Collection Time Receive d Time (Source) Location / / Volume Laterality Stool 05/17/2021 12:31 05/17/2021 PM EDT 10:18 PM EDT Comment: Enter the Lab Location:->APD [place] Resulting Agency Comment Spec In Lab Gisselle Cochran MD MICROBIOLOGY - GENERAL ORDER KATLYN Performing Organization Address City/State/[place] [address] (ABNORMAL) Comprehensive metabolic panel (non-fasting) (05/17/2021 12:08 PM EDT) P athologist Signature Glucose Lvl 94 65 - 199 [facility] mg/dL LAB[facility]AT[facility] Comment: Diabetes: >=200 mg/dL plus symp toms BUN 10 8 - 18 mg/dL [facility] Creatinine 0.59 (L) 0.70 - 1.20 mg/dL [facility] Sodium 136 135 - 145 mmol/L [facility] Potassium 3.9 3.5 - 5.0 mmol/L [facility] Comment: Please note: ??Patients with WBC >100,00 0 may have falsely elevated Potassium levels. ??For accurate Potassium quantif ication in these patients send serum separator tube (gold top) for subsequent determinations. ??Contact the Clinical Chemistry Laboratory if there are any qu estions. Chloride 100 98 - 107 mmol/L [facility] CO2 25 22 - 31 mmol/L [facility] Anion Gap 11 5 - 15 mmol/L [facility] Calcium 9.6 8.5 - 10.5 mg/dL [facility] Total Protein 6.7 6.1 - 8.0 gm/dL [facility] Albumin 4.2 3.2 - 5.2 gm/dL [facility] AST 16 0 - 30 unit/L [facility] ALT 14 0 - 30 unit/L [facility] Alk Phos 46 35 - 105 unit/L [facility] Total Bilirubin 0.4 0.2 - 1.3 mg/dL [facility] Estimated GFR 88 >=60 mL/min/1.73 m?? [facility] Comment: This patient? s estimated glomerular [...] City/State/ZIP Code Phon e Number LABORATORY [address] [place], [place] [address] documented in this encounter Visit Diagnoses Diagnosis Diarrhea, unspecified type documented in this encounter Care Teams Credit Assistant Relationship Specialty Start Date End Date Harmony Matute MD PCP - General General Internal Medicine 04/06/20 02/20/[address] [place] [address] documented as of this encounter
--- OUTSIDE RECORDS SUMMARY | 2022-04-01 00:47 | XMS_ITS | Encounter Summary ---
:1945 Author Organization [facility] [place] [address] Care Team Providers Name Role Phone Harmony Matute MD Primary Care Provider Encounter Details Date Type Department Care Team Description 04/06/2020 Laboratory Appointment Laboratory at [facility] Huber, unspecified type; [facility] Day Arthralgia, unspecified join t; [address] Family history of diabetes m trever; [place], [place] Family history of malignant neoplasm of breast; [id number] Family history of ischemic h eart disease (IHD) [phone] Social History Tobacco Use Types Packs/Day Years Used Date Never Assessed Sex Assigned at Date Recorded Not on file documented as of this encounter Plan of Treatment Not on filedocumented as of this encounter Procedures Procedure Name Priority Date/Time Associated Comments Diagnosis HC LYME DISEASE, FLORENTINO Routine 04/06/2020 9:41 AM Fatigue, Results for this EDT unspecified type procedure are in Arthralgia, the results unspecified join t section. Family history of diabetes mellitu s Family history of malignant neoplasm of breast Family history of ischemic heart disease (IHD) HEMOGRAM Routine 04/06/2020 9:41 AM Fatigue, Results f or this EDT unspecified type procedure are in Arthralgia, the results unspecified join t section. Family history of diabetes mellitu s Family history of malignant neoplasm of breast Family history of ischemic heart disease (IHD) DIFFERENTIAL, Routine 04/06/2020 9:41 AM Fatigue, Results for this AUTOMATED EDT unspecified type procedure are in Arthralgia, the results unspecified join t section. Family history of diabetes mellitu s Family history of malignant neoplasm of breast Family history of ischemic heart disease (IHD) HC VENIPUNCTURE Routine 04/06/2020 9:41 AM Fatigue, Result s for this EDT unspecified type procedure are in Arthralgia, the results unspecified join t section. Family history of diabetes marcoitu s Family history of malignant neoplasm of breast Family history of ischemic heart disease (IHD) HC IRON BINDING Routine 04/06/2020 9:41 AM Fatigue, Result s for this CAPACITY EDT unspecified type procedure are in Arthralgia, the results unspecified join t section. Family history of diabetes marcoitu s Family history of malignant neoplasm of breast Family history of ischemic heart disease (IHD) HC CBC,PLT & AUTO DIFF Routine 04/06/2020 9:41 AM Fatigue, EDT unspecified type Arthralgia, unspecified join t Family history of diabetes marcoitu s Family history of malignant neoplasm of breast Family history of ischemic heart disease (IHD) HC HSCRP Routine 04/06/2020 9:41 AM Fatigue, Results f or this EDT unspecified type procedure are in Arthralgia, the results unspecified join t section. Family history of diabetes marcoitu s Family history of malignant neoplasm of breast Family history of ischemic heart disease (IHD) HC ANTINUCLEAR Routine 04/06/2020 9:41 AM Fatigue, Results for this ANTIBODY,SERUM EDT unspecified type procedure are in Arthralgia, the results unspecified join t section. Family history of diabetes marcoitu s Family history of malignant neoplasm of breast Family history of ischemic heart disease (IHD) HC FREE T3 LEVEL Routine 04/06/2020 9:41 AM Fatigue, Resul ts for this EDT unspecified type procedure are in Arthralgia, the results unspecified join t section. Family history of diabetes marcoitu s Family history of malignant neoplasm of breast Family history of ischemic heart disease (IHD) HC THYROID STIMULATING Routine 04/06/2020 9:41 AM Fatigue, Results for this HORMONE, SERUM EDT unspecified type procedure are in Arthralgia, the results unspecified join t section. Family history of diabetes marcoitu s Family history of malignant neoplasm of breast Family history of ischemic heart disease (IHD) HC FREE THYROXINE (T4) Routine 04/06/2020 9:41 AM Fatigue, Results for this EDT unspecified type procedure are in Arthralgia, the results unspecified join t section. Family history of diabetes marcoitu s Family history of malignant neoplasm of breast Family history of ischemic heart disease (IHD) HC HOMOCYSTEINE Routine 04/06/2020 9:41 AM Fatigue, Result s for this EDT unspecified type procedure are in Arthralgia, the results unspecified join t section. Family history of diabetes marcoitu s Family history of malignant neoplasm of breast Family history of ischemic heart disease (IHD) HC HEMOGLOBIN A1C Routine 04/06/2020 9:41 AM Fatigue, Resu lts for this EDT unspecified type procedure are in Arthralgia, the results unspecified join t section. Family history of diabetes marcoitu s Family history of malignant neoplasm of breast Family history of ischemic heart disease (IHD) FERRITIN Routine 04/06/2020 9:41 AM Fatigue, Results f or this EDT unspecified type procedure are in Arthralgia, the results unspecified join t section. Family history of diabetes marcoitu s Family history of malignant neoplasm of breast Family history of ischemic heart disease (IHD) LIPID PANEL (REFLEX Routine 04/06/2020 9:41 AM Fatigue, Re sults for this DIRECT LDL) EDT unspecified type procedure are in Arthralgia, the results unspecified join t section. Family history of diabetes marcoitu s Family history of malignant neoplasm of breast Family history of ischemic heart disease (IHD) COMPREHENSIVE Routine 04/06/2020 9:41 AM Fatigue, Results for this METABOLIC PANEL EDT unspecified type procedure are in (NON-FASTING) Arthralgia, the results unspecified join t section. Family history of diabetes marcoitu s Family history of malignant neoplasm of breast Family history of ischemic heart disease (IHD) documented in this encounter Results Differential, Automated (04/06/2020 9:41 AM EDT) P athologist Signature Neutrophils % 61.6 % DAY LABORATORY Neutr Abs (ANC) 3.67 1.70 - DAY 6.10 LABORATORY x10(3)/mcL Lymphocytes % 28.7 % DAY [facility] Lymphocytes Abs 1.7 0.9 - 3.2 [facility] DAY x10(3)/mcL LABORATORY Monocytes % 7.9 % DAY LABORATORY Monocyte Abs 0.5 0.3 - 0.9 [facility] DAY x10(3)/mcL LABORATORY Eosinophils % 1.3 % DAY LABORATORY Eosinophils Abs 0.1 0.0 - 0.4 K DAY x10(3)/mcL LABORATORY Basophils % 0.3 % [facility] Basophils Abs 0.0 0.0 - 0.1 [facility] DAY x10(3)/mcL LABORATORY Immature Gran % 0.20 % LABORATORY Comment: Immature granulocytes(IG's)percentage an d absolute count will include metamyelocytes, myelocytes, and promyelo cytes. Blood smears from CBCs yielding IG's will be scanned manually for concor dance. If this scan disagrees with the automated IG or if promyelocytes are not ed, a manual differential will be performed. Greta Gran Abs 0.01 0.00 - 0.04 x10(3)/mcL LABORATORY Specimen Anatomical Collection Method Collection Time Receive d Time (Source) Location / / Volume Laterality Blood specimen 04/06/2020 9:41 AM 020 1:16 (specimen) EDT PM EDT Resulting Agency Comment Spec In Lab / APD Gisselle Cochran MD HEMATOLOGY ORDERABLES Performing Organization Address City/State/ZIP Code Phon e Number LABORATORY [address] [place], [place] [address] Hemogram (04/06/2020 9:41 AM EDT) P athologist Signature WBC 6.0 4.0 - 9.5 DAY x10(3)/mcL LABORATORY RBC 4.50 4.00 - 5.21 DAY x10(6)/mcL LABORATORY Hemoglobin 13.8 11.7 - 15.5 gm/dL LABORATORY Hematocrit 40.3 35.7 - 45.8 % LABORATORY MCV 89.6 82.6 - 94.4 fL LABORATORY MCH 30.7 27.1 - 32.0 pg LABORATORY MCHC 34.2 31.7 - 35.0 gm/dL LABORATORY Platelets 284 145 - 357 DAY x10(3)/mcL LABORATORY RDWSD 42.1 37.0 - 46.0 fL LABORATORY RDWCV 12.8 11.5 - 14.1 % LABORATORY MPV 9.5 7.6 - 12.9 fL LABORATORY Specimen Anatomical Collection Method Collection Time Receive d Time (Source) Location / / Volume Laterality Blood specimen 04/06/2020 9:41 AM 020 1:16 (specimen) EDT PM EDT Resulting Agency Comment Spec In Lab / APD Gisselle Cochran MD HEMATOLOGY ORDERABLES Performing Organization Address City/[facility]/ZIP Code Phon e Number [facility] [address] [place], [place] [address] Ferritin (04/06/2020 9:41 AM EDT) athologist [facility] Ferritin 238 30 - 400 [facility] ng/mL LABORATORY Comment: Pediatric reference ranges not verified at [facility], interpret with caution. Reference ranges for females greater maria n 50 years of age approach values for men, i.e., 30-400 ng/mL. Specimen Anatomical Collection Method Collection Time Receive d Time (Source) Location / / Volume Laterality Blood specimen 04/06/2020 9:41 AM 020 1:16 (specimen) EDT PM EDT Resulting Agency Comment Spec In Lab / APD Gisselle Cochran MD CHEMISTRY ORDERABLES Performing Organization Address City/[facility]/ZIP [facility] Phon e Number [facility] [address] [place], [place] [address] NICOLE ([facility]) (04/06/2020 9:41 AM EDT) athologist [facility] NICOLE Neg Neg [facility] Comment: Anti-nuclear antibodies were te sted using an indirect immunofluorescent assay. Specimen Anatomical Collection Method Collection Time Receive d Time (Source) Location / / Volume Laterality Blood specimen 04/06/2020 9:41 AM 020 1:39 (specimen) EDT PM EDT Resulting Agency Comment Spec In Lab / APD Gisselle Cochran MD IMMUNOLOGY ORDERABLES Performing Organization Address City/[facility]/ZIP [facility] [place] [address] Iron and TIBC (04/06/2020 9:41 AM EDT) athologist Signature Iron 108 30 - 150 [facility] mcg/dL LABORATORY TIBC 255 250 - 450 [facility] mcg/dL LABORATORY Iron Saturation 42 20 - 50 % LABORATORY Specimen Anatomical Collection Method Collection Time Receive d Time (Source) Location / / Volume Laterality Blood specimen 04/06/2020 9:41 AM 020 1:16 (specimen) EDT PM EDT Resulting Agency Comment Spec In Lab / APD Gisselle Cochran MD CHEMISTRY ORDERABLES Performing Organization Address City/[facility]/ZIP Code Phon e Number LABORATORY [address] [place], [place] [address] Lyme IgG & IgM Antibody (04/06/2020 9:41 AM EDT) P athologist Signature Lyme Screening Neg Neg [facility] LABORATORY Specimen Anatomical Collection Method Collection Time Receive d Time (Source) Location / / Volume Laterality Blood specimen 04/06/2020 9:41 AM 020 6:38 (specimen) EDT AM EDT Resulting Agency Comment Spec In Lab / APD Gisselle Cochran MD IMMUNOLOGY ORDERABLES Performing Organization Address City/[facility] [place] [address] Lipid Panel (Reflex Direct LDL) (04/06/2020 9:41 AM EDT) P athologist Signature Chol, Total 221 mg/dL LABORATORY Comment: Lower Risk: <200 mg/dL Average Risk: 200-239 mg/dL Higher Risk: >wq=933 mg/dL Triglycerides 105 mg/dL L ABORATORY Comment: Average Risk/Lower Risk: <150 mg/dL Borderline High Risk: 150-199 mg/dL High Risk: 200-499 mg/dL Very High Risk: >tw=548 mg/dL HDL 79 mg/dL LABOR ATORY Comment: Males: ?? Higher Risk: <40 mg/dL Females: ?? HIgher Risk: <50 mg/dL LDL Cholesterol 121 mg/dL LABORATORY Comment: Lowest Risk: <100 mg/dL Lower Risk: 100-129 mg/dL Borderline High Risk: 130-159 mg/dL High Risk: 160-189 mg/dL Very High Risk: >us=682 mg/dL Chol/HDL Ratio 2.8 ratio LABORATORY Lipid Interpretation See Note [facility] Comment: Lipid management should be guided by a p atient? s ASCVD risk, goals and preferences. ACC/AHA Guidelines recommend high intens ity statin if clinical ASCVD or LDL greater than or equal to 190 mg/dL. http://[employer].com/IEW-NON-Dgmxaqvbc Adults aged 40-75 with LDL 70-189 mg/dL should have their 10 year ASCVD risk estimated with the ACC/AHA ASCVD risk es timator http://tools.acc.org/EXSIU-Btox-Rwopamrg r/ Statin should be discussed if risk [...] Address City/State/ZIP Code Phon e Number [facility] [address] [place], [place] [address] CRP, cardiac risk (HS CRP) (04/06/2020 9:41 AM EDT) P athologist Signature CRP High Sens 1.0 mg/L [facility] Comment: For cardiac risk assessment, [...] CRP values >10 mg/L indicate an ac cher-ae heights inflammatory condition or infection. The >10 mg/L [...] 2003; 107:363-369 CRP Cardiac Risk Moderate Risk [facility] LAB[facility] Specimen Anatomical Collection Method Collection Time Receive d Time (Source) Location / / Volume Laterality Blood specimen 04/06/2020 9:41 AM 020 4:15 (specimen) EDT PM EDT Resulting Agency Comment Spec In Lab / APD Gisselle Cochran MD CHEMISTRY ORDERABLES Performing Organization Address City/State/[place] [address] (ABNORMAL) Comprehensive metabolic panel (non-fasting) (04/06/2020 9:41 AM EDT) P athologist Signature Glucose Lvl 93 65 - 199 [facility] mg/dL LABORATORY Comment: Diabetes: >=200 mg/dL plus symp toms BUN 11 8 - 18 mg/dL [facility] LA BORATORY Creatinine 0.56 (L) 0.70 - 1.20 mg/dL [facility] Sodium 137 135 - 145 mmol/L [facility] Potassium 4.3 3.5 - 5.0 mmol/L [facility] Comment: Please note: ??Patients with WBC >100,00 0 may have falsely elevated Potassium levels. ??For accurate Potassium quantif ication in these patients send serum separator tube (gold top) for subsequent determinations. ??Contact the Clinical Chemistry Laboratory if there are any qu estions. Chloride 101 98 - 107 mmol/L [facility] DAY [...] of body mass or the acutely ill. [email or web address] eGFR 105 >=60 mL/min/1.73 m?? LABORATORY Comment: The eGFR was calculated using the CKD-EP I equation. As with all creatinine based estimates of kidney function, eGFR values calculated with the CKD-EPI equation are not accurate in patients wi th acute kidney failure, extremes of body mass or the acutely ill. [email or web address] Specimen Anatomical Collection Method Collection Time Receive d Time (Source) Location / / Volume Laterality Blood specimen 04/06/2020 9:41 AM 020 1:16 (specimen) EDT PM EDT Resulting Agency Comment Spec In Lab / APD Gisselle Cochran MD CHEMISTRY ORDERABLES Performing Organization Address City/State/ZIP Code Phon e Number LABORATORY [address] [place], [place] [address] Hemoglobin A1c (04/06/2020 9:41 AM EDT) [facility] Method Time Signature Hemoglobin A1C 5.2 4.3 - 5.6 % LABORATORY Est Avg Gluc See note mg/dL [facility] Comment: Estimated Average Glucose not a ppropriate for patients over 70 years of age. Specimen Anatomical Collection Method Collection Time Receive d Time (Source) Location / / Volume Laterality Blood specimen 04/06/2020 9:41 AM 020 1:16 (specimen) EDT PM EDT Resulting Agency Comment Spec In Lab / APD Gisselle Cochran MD CHEMISTRY ORDERABLES Performing Organization Address City/[facility]/ZIP Code Phon e Number [facility] [address] [place], [place] [address] TSH (04/06/2020 9:41 AM EDT) P athologist Signature TSH 1.68 0.27 - 4.20 [facility] mcIU/mL LABORATORY Specimen Anatomical Collection Method Collection Time Receive d Time (Source) Location / / Volume Laterality Blood specimen 04/06/2020 9:41 AM 020 1:16 (specimen) EDT PM EDT Resulting Agency Comment Spec In Lab / APD Gisselle Cochran MD CHEMISTRY ORDERABLES Performing Organization Address City/[facility] Code Phon e Number [facility] [address] [place], [place] [address] T3, free (04/06/2020 9:41 AM EDT) P athologist Signature T3, Free 2.5 2.0 - 4.4 [facility] pg/mL LABORATORY Specimen Anatomical Collection Method Collection Time Receive d Time (Source) Location / / Volume Laterality Blood specimen 04/06/2020 9:41 AM 020 1:16 (specimen) EDT PM EDT Resulting Agency Comment Spec In Lab / APD Gisselle Cochran MD CHEMISTRY ORDERABLES Performing Organization Address City/[facility]/ZIP [facility] Phon e Number [facility] [address] [place], [place] [address] T4, free (04/06/2020 9:41 AM EDT) P athologist Signature Free T4 1.10 0.93 - 1.70 [facility] ng/dL LABORATORY Specimen Anatomical Collection Method Collection Time Receive d Time (Source) Location / / Volume Laterality Blood specimen 04/06/2020 9:41 AM 07/20/2 020 1:16 (specimen) EDT PM EDT Resulting Agency Comment Spec In Lab / APD Gisselle Cochran MD CHEMISTRY ORDERABLES Performing Organization Address City/[facility]/ZIP Code Phon e Number [facility] [address] [place], [place] [address] Homocysteine Total, Plasma (04/06/2020 9:41 AM EDT) P athologist Signature Homocyst Tot 6 <=15 [facility] LABORATORY Specimen Anatomical Collection Method Collection Time Receive d Time (Source) Location / / Volume Laterality Blood specimen 04/06/2020 9:41 AM 020 4:15 (specimen) EDT PM EDT Resulting Agency Comment Spec In Lab / APD Gisselle Cochran MD CHEMISTRY ORDERABLES Performing Organization Address [facility] [place] [address] Methylmalonic acid, serum (04/06/2020 9:41 AM EDT) Patholo gist Method Time Signature Methylmalonic Acid 0.14 <=0.40 [facility] nmol/mL LABORATORY Comment: ADDITIONAL INFORMATIO N This test was developed and its performa nce characteristics determined by [facility] in a manner co nsistent with CLIA requirements. This test has not been gonzalo ared or approved by the U.S. Food and Drug Administration. Test Performed by: [facility] - [address] [address] Pattern Generator Operator: Rodney Rincon M.D. Ph. D.; CLIA# [id number] Specimen Anatomical Collection Method Collection Time Receive d Time (Source) Location / / Volume Laterality Blood specimen 04/06/2020 9:41 AM 020 4:27 (specimen) EDT PM EDT Resulting Agency Comment Spec In Lab / APD Gisselle Cochran MD CHEMISTRY ORDERABLES Performing Organization Address City/[facility]/ZIP Code Phon e Number [facility] [address] [place], [place] [address] documented in this encounter Visit Diagnoses Diagnosis Fatigue, unspecified type Arthralgia, unspecified joint Family history of diabetes mellitus Family history of malignant neoplasm of breast Family history of ischemic heart disease (IHD) Family history of ischemic heart disease documented in this encounter Care Teams Exercise Physiologist Relationship Specialty Start Date End Date Harmony Matute MD PCP - General General Internal Medicine 04/06/20 02/20/[address] [place] [address] documented as of this encounter
--- OUTSIDE RECORDS SUMMARY | 2022-04-01 00:48 | XMS_ITS | Encounter Summary ---
:1945 Author Organization [facility] Address [address] [place] [address] Care Team Providers Name Role Phone Albina Canales MD Primary Care Provider Reason for Visit Reason Comments Follow-up Annual (Doing excellent) Encounter Details Date Type Department Care Team Description 09/15/2021 Office Visit [facility] Kelley Morris al atrophy (Primary Dx); Pelvic Medicine and MMD Personal history UTI Reconstructive Surgery - [address] [place] [address] Medical [place] [address] Medical [address] [place] [id number] [address] [place] [address] Social History Tobacco Use Types Packs/Day Years Used Date Never Smoker Smokeless Tobacco: Never Used Alcohol Use Standard Drinks/Week Comments Yes 1 (1 standard drink = 0.6 oz pure alcoho l) rare Alcohol Habits Answer Date Recorded How often do you have a drink containing alcohol? Monthly or less 02/27/2020 How many drinks containing alcohol do you have on a Not aske d typical day when you are drinking? How often do you have six or more drinks on one Not asked occasion? Comment: rare 02/27/2020 Sex Assigned at Date Recorded Not on file documented as of this encounter Ordered Prescriptions Prescription Sig Dispensed Refills Start Date End Date estradioL (ESTRACE) 0.01 Place 1 g vaginally 42.5 g 3 % (0.1 mg/gram) vaginal twice a week. creamIndications: Vaginal atrophy, Personal history UTI documented in this encounter Progress Notes Kelley Morris MD - 09/15/2021 1415 EST [facility] FOLLOW-UP CC: Vaginal atrophy, history of UTI, asymptomatic Stage II cystocele Patient: Sherly Pagan is a 76 y.o. female seen for a follow-up regarding the above diagnoses. She is doing excellent! Denies bladder symptoms, bulge symptoms. No UTIs in past year. Using vaginal estrogen 2x/week. S/p PFPT. Continues to do PFM exercises on her own as well as yoga. Had bad virus 09/2019 (not COVID), had extended fatigue but improving now, able to exercise. Current Outpatient Medications Medication ??? aspirin chewable 81 mg tablet ??? calcium gluconate 500 mg tablet ??? cholecalciferol, Vitamin D3, 1,000 unit tablet ??? cranberry fruit extract (CRANBERRY EXTRACT ORAL) ??? estradioL (ESTRACE) 0.01 % (0.1 mg/gram) vaginal cream ??? GRAPE SEED EXTRACT ORAL ??? Melatonin 5 mg capsule ??? [id number]-fish oil 1,000-1,400 mg capsule,delayed release(DR/EC) ??? TURMERIC ORAL ??? Vitamin [id number]-[id number] Acid 0.5-1 mg tablet No current facility-administered medications for this visit. Allergies Allergen Reactions ??? Dairy Products [Milk Containing Products] ??? Eggs [Egg] ??? Sulfa (Sulfonamide Antibiotics) rash ??? Wheat Social History Tobacco Use ??? Smoking status: Never Smoker ??? Smokeless tobacco: Never Used Substance Use Topics ??? Alcohol use: Yes Alcohol/week: 1.0 standard drink Types: 1 Glasses of wine per week Comment: rare ??? Drug use: Never Review of Systems Pelvic pain: No Dyspareunia: No Recurrent UTI: No Hematuria: No Objective: Physical Exam: There were no vitals taken for this visit. GEN: NAD, normal body habitus HENT: Atraumatic, normocephalic Eyes: EOMI Respiratory: Normal inspiratory/expiratory effort Extremities: Moving all extremities independently Skin: No lesions or rashes Neuro: Alert & oriented x3 exam deferred Assessment and Plan Sherly Pagan is a 76 y.o. female with vaginal atrophy, asymptomatic Stage II cystocele. -Continue vaginal estrogen 2x/week, Rx given Follow up 1 year or prn I spent a total of 21 minutes on the date of this encounter meeting with the patient and reviewing documentation/coordinating care as described in the above note. No procedures were performed at the time of the visit. Kelley Morris MD documented in this encounter Plan of Treatment Upcoming Encounters Date Type Specialty Care Team Description 07/19/2022 Office Visit Ophthalmology Scout Ocasio MD [address] [place], [place] [phone] (Wo rk) 09/15/2022 Telemedicine Pelvic Medicine Kelley Morris MD [address] [facility] Medical Office Building, [address] [place], [place] [address] (Wo rk) documented as of this encounter Visit Diagnoses Diagnosis Vaginal atrophy - Primary Postmenopausal atrophic vaginitis Personal history UTI Personal history of urinary (tract) infe ction documented in this encounter Discontinued Medications Medication Sig Discontinue Reason Start Date End Date estradioL (ESTRACE) Place 1 g vaginally Reorder 04/29/2021 1 0.01 % (0.1 mg/gram) twice a week. vaginal cream aspirin chewable 81 mg Take 81 mg by mouth 10/26/2021 tablet daily. GRAPE SEED EXTRACT ORAL Take by mouth. documented as of this encounter Care Teams Hat Block Bench Hand Relationship Specialty Start Date End Date Albina Canales MD PCP - General 06/22/[address] [place] [phone] documented as of this encounter
--- OUTSIDE RECORDS SUMMARY | 2022-04-01 00:48 | XMS_ITS | Encounter Summary ---
:1945 Author Organization [facility] Address [address] [place] [address] Care Team Providers Name Role Phone Unavailable Primary Care Provider Unavailable Encounter Details Date Type Department Care Team Description 12/08/[address] [facility] - Oleg Valentin, Visit (Maple) Maple conversion EXTENSION WORK INSTRUCTOR [address], [place] [id number] Social History Tobacco Use Types Packs/Day Years Used Date Never Assessed Alcohol Habits Answer Date Recorded How often do you have a drink containing alcohol? Monthly or less 02/27/2020 How many drinks containing alcohol do you have on a Not aske d typical day when you are drinking? How often do you have six or more drinks on one Not asked occasion? Comment: Not asked Sex Assigned at Date Recorded Not on file documented as of this encounter Plan of Treatment Upcoming Encounters Date Type Specialty Care Team Description 07/19/2022 Office Visit Ophthalmology Scout Ocasio MD [address] [place] [address] (Lavelle gee) 09/15/2022 Telemedicine Pelvic Medicine Kelley Morris MD [address] [facility] Medical Office Building, [address] [place], [place] [address] (Lavelle gee) documented as of this encounter Procedures Procedure Name Priority Date/Time Associated Diagnosis Comme nts CYTOPATHOLOGY Routine 12/08/2008 0:00 EDT Results for this procedure are i n the results section . documented in this encounter Results CYTOPATHOLOGY (12/08/2008 0:00 EDT) Pathology Report: CYTOPATHOLOGY REPORT ? GARCIA ALL EN ? LAB Reports generated via electr PressConnectic interface contain original data; ? however they are lacking the format of the original report. ? Caution should be taken when reading/interpreting unformatted reports. ? Name: ? SHERLY MONTERO ? Accession #: ? [id number] ? : ? 1945 (Age: 63) ??F ?Collect Date: ? 12/08/2008 ? Location: ? [facility] ? Receive Date: ? 12/10/2008 ? Provider: ?PHUC M RO WLETT EXTENSION WORK INSTRUCTOR ? Copy to: ? Specimen/Source: ? Pap Test, Vagina, ThinPrep Imaging System with manual ?? evaluation ? Last Menstrual Period: ? 1994 ? Previous Gynecologic Patholo gy: ? Yes: Prolapse ? Treatment History: ? Hysterectomy: vaginal ? SPECIMEN ADEQUACY ? Satisfactory for Eval uation ? - assessment of transformati on zone component not applicable ( e.g. atrophy, ? vaginal sample, hysterectomy ) ? GENERAL CATEGORIZATION ? Negative for Intraepi thelial Lesion or Malignancy ? Document reviewed and electr onically signed by: ? Briseyda Richy, CT(ASCP ) ? Report Date: ??03/26/ 2009 14:24 ? End of Report ? Specimen Performing Organization Address City/State/ZIP Code Phon e Number [facility] [address] [place] [address] SERVICES [facility] [address] [place] [address] documented in this encounter Visit Diagnoses Not on filedocumented in this encounter
--- OUTSIDE RECORDS SUMMARY | 2022-04-01 00:48 | XMS_ITS | Encounter Summary ---
:1945 Author Organization [facility] Address [address] [place] [address] Care Team Providers Name Role Phone Unavailable Primary Care Provider Unavailable Reason for Visit Reason Comments Follow-up Prolapse Encounter Details Date Type Department Care Team Description 09/01/2020 Office Visit [facility] Kelley Morris Cysto susie, midline (Primary Dx); Pelvic Medicine and MD Víctor Vaginal atrophy; Reconstructive Surgery - [address] [place] [address] Per beatris history UTI Medical Office [place] [address] Medical [address] [place] [address] [facility] [phone] [place] [address] Social History Tobacco Use Types [...] Sign Reading Time Taken Comments Blood Pressure 109/67 09/01/2020 1446 EST Pulse 75 09/01/2020 1446 EST Temperature - - Respiratory Rate - - Oxygen Saturation - - Inhaled Oxygen Concentration - - Weight - - Height - - Body Mass Index - - documented in this encounter Patient Instructions Patient Deepak Quiroz - 09/01/2020 14:15 EST Please call our office to schedule your Annual follow up with Dr. Morris. [phone] Opt 5 documented in this encounter Progress Notes Kelley Morris MD - 09/01/2020 1415 EST [facility] FOLLOW-UP CC: Stage II cystocele, atrophy, history of UTI Patient: Sherly Pagan is a 74 y.o. female seen for a follow-up regarding the above diagnoses. She had been considering pessary trial but is doing very well and declines fitting today. Since last visitshe has been using vaginal estrogen 2x/week and learning PFM exercises with Smiley Ling. Doing verywell! Not feeling any current prolapse symptoms. Current Outpatient Medications Medication ??? aspirin chewable 81 mg tablet ??? calcium gluconate 500 mg tablet ??? cholecalciferol, Vitamin D3, 1,000 unit tablet ??? cranberry fruit extract (CRANBERRY EXTRACT ORAL) ??? estradioL (ESTRACE) 0.01 % (0.1 mg/gram) vaginal cream ??? GRAPE SEED EXTRACT ORAL ??? ldvic-6n-zbl-epa-fish oil 1,000-1,400 mg capsule,delayed release(/EC) ??? TURMERIC ORAL ??? Vitamin S64-Nreld Acid 0.5-1 mg tablet No current facility-administered medications for this visit. Allergies Allergen Reactions ??? Dairy Products [Milk Containing Products] ??? Egg ??? Sulfa (Sulfonamide Antibiotics) rash ??? Wheat Social History Tobacco Use ??? Smoking status: Never Smoker ??? Smokeless tobacco: Never Used Substance Use Topics ??? Alcohol use: Yes Alcohol/week: 1.0 standard drinks Types: 1 Glasses of wine per week Frequency: Monthly or less Comment: rare ??? Drug use: Never Review of Systems Pelvic pain: No Dyspareunia: No Recurrent UTI: No Hematuria: No Objective: Physical Exam: BP 109/67 Pulse 75 GEN: NAD, normal body habitus HENT: Atraumatic, normocephalic Eyes: EOMI Respiratory: Normal inspiratory/expiratory effort Extremities: Moving all extremities independently Skin: No lesions or rashes Neuro: Alert & oriented x3 exam deferred Assessment and Plan Sherly Pagan is a 74 y.o. female with Stage II cystocele, vaginal atrophy. -Continue vaginal estrogen 2x/week -Continue PFPT with Smiley Follow up 1 year or prn Kelley Morris MD documented in this encounter Plan of Treatment Upcoming Encounters Date Type Specialty Care Team Description 07/19/2022 Office Visit Ophthalmology Scout Ocasio MD [address] [place], [place] [phone] (Wo rk) 09/15/2022 Telemedicine Pelvic Medicine Kelley Morris MD [address] [facility] Medical Office Building, [address] [place], [place] [address] (Lavelle gee) documented as of this encounter Visit Diagnoses Diagnosis Cystocele, midline - Primary Vaginal atrophy Postmenopausal atrophic vaginitis Personal history UTI Personal history of urinary (tract) infe ction documented in this encounter
--- OUTSIDE RECORDS SUMMARY | 2022-04-01 00:48 | XMS_ITS | Encounter Summary ---
:1945 Author Organization [facility] Address [address] [place] [address] Care Team Providers Name Role Phone Unavailable Primary Care Provider Unavailable Reason for Referral PT/OT/ST (Routine) - Specialty Report Received Specialty Diagnoses / Procedures Referred By Contact Refer red To Contact Rehab Therapies Diagnoses Cystocele, Kelley Zaidi MD Phelan, Nancy, PT [address] [place] [address] Office Building, [address] [address] Referral ID Status Reason Start Expiration Visits Visits Date Date Requested Authorized [id number] Specialty Specialty 05/12/2020 1 1 Report Services Received Required Question Answer Reason for Request: pelvic floor physical therap y for prolapse Scheduling Comments (optional ? please schedule on same day as follow up describe specific scheduling needs if appt with Dr. Christina cerda applicable): Reason for Visit Reason Comments New Patient Visit f/u from telemed, pelvic org an prolapse Encounter Details Date Type Department Care Team Description 05/12/2020 Office Visit [facility] Kelley Morris midline Pelvic Medicine toan Renee MD (Primary Dx) Reconstructive Surgery - [address] [place] [address] Medical [place] [address] Medical Office [address] [place] [address] [address] [place] [phone] Social History Tobacco Use Types Packs/Day Years [...] Sign Reading Time Taken Comments Blood Pressure 137/88 05/12/2020 1625 EDT Pulse 76 05/12/2020 1625 EDT Temperature - - Respiratory Rate - - Oxygen Saturation - - Inhaled Oxygen Concentration - - Weight - - Height - - Body Mass Index - - documented in this encounter Ordered Prescriptions Prescription Sig Dispensed Refills Start Date End Date estradioL (ESTRACE) 0.01 Place 1 g vaginally 42.5 g 11 12/22/2020 % (0.1 mg/gram) vaginal twice a week. cream documented in this encounter Progress Notes Michaela Kong MD - 05/12/2020 1545 EDT [facility] FOLLOW-UP CC: Follow up prolapse Patient: Sherly Pagan is a 74 y.o. female seen for a follow-up regarding pelvic organ prolapse. Shewas seen for her initial New Patient Visit via telemedicine and presents today for exam and to discuss treatment options. She reports that her hysterectomy was entirely through the vagina, no abdominalincisions. She reports she had urinary retention after her hysterectomy and was told that her doctorwondered if he had made things too tight, but she isn't sure if any additional incontinence procedures were done. Doesn't think she had any mesh placed. She is currently SA. She reports that initially when she noticed the prolapse in Spring 2019 it was ~golf-ball sized, butnow she reports that her prolapse is only a tiny bulge now. This is after treating for a UTI such that she feels she is emptying her bladder somewhat better. Current Outpatient Medications Medication ??? aspirin chewable 81 mg tablet ??? calcium gluconate 500 mg tablet ??? cholecalciferol, Vitamin D3, 1,000 unit tablet ??? cranberry fruit extract (CRANBERRY EXTRACT ORAL) ??? GRAPE SEED EXTRACT ORAL ??? edaig-0a-zfq-epa-fish oil 1,000-1,400 mg capsule,delayed release(DR/EC) ??? TURMERIC ORAL ??? Vitamin Z25-Ewoxt Acid 0.5-1 mg tablet No current facility-administered medications for this visit. Allergies Allergen Reactions ??? Sulfa (Sulfonamide Antibiotics) rash Social History Tobacco Use ??? Smoking status: Never Smoker ??? Smokeless tobacco: Never Used Substance Use Topics ??? Alcohol use: Yes Alcohol/week: 1.0 standard drinks Types: 1 Glasses of wine per week Frequency: Monthly or less Comment: rare ??? Drug use: Never Review of Systems Pelvic pain: No Dyspareunia: No Recurrent UTI: No Hematuria: No Objective: Physical Exam: BP 137/88 Pulse 76 GEN: NAD, normal body habitus HENT: Atraumatic, normocephalic Eyes: EOMI Respiratory: Normal inspiratory/expiratory effort Extremities: Moving all extremities independently Skin: No lesions or rashes Neuro: Alert & oriented x3 Genitourinary Exam: External Genitalia: Normal external genitals, urethral meatus, perineum. Bartholin's, urethral, and Epping's glands: Normal Urethra: Severe atrophy. 1 cm caruncle, not friable or tender. Bladder: No masses, tenderness, or distention Vulva:/Perineum: Normal Vagina: Severe atrophy. No discharge, no lesions. Scarring suburethrally consistent with prior incontinence procedure; patient states she has not previously had a sling. Fixed bladder neck. Stage II cystocele noted; apex and posterior wall well-supported. See POP-Q. Cervix: Absent Uterus: Absent Adnexa/Parametria: Absent Perineal Sensation: Normal Rectal Exam: Deferred POP-Q: GH (without strain): 2.5 GH (with strain): 3 PB (without strain): 4 PB (with strain): 4 TVL: 7 Aa: 0 Ba: 0 C: -5.5 D: n/a Ap: -2 Bp: -2 Exam chaperoned by Tommie Henderson MA and Dr. Alexandra SANCHEZ for PVR: 137 - 234 mL Results for orders placed or performed in visit on 05/12/20 POCT URINE DIPSTICK, CLINITEK Result Value Ref Range Color, UA Yellow Yellow Clarity, UA Clear Clear Glucose, UA Negative Negative mg/dL Bilirubin, UA Negative Negative Ketones, UA Negative Negative mg/dL Specific [place], Urine 1.025 1.001 - 1.035 Blood, UA Negative Negative pH, UA 5.5 <=8 Protein, UA Negative Negative mg/dL Urobilinogen, UA 0.2 0.2 - 1.0 EU/dL Nitrite, UA Negative Negative Leuk Esterase Negative Negative Tech ID [id number] [facility] LAB COMMENT (CLINITEK, UR) Test performed at the [facility] Assessment and Plan Sherly Pagan is a 74 y.o. P3 female with stage II cystocele, urinary retention and UTIs, vaginal atrophy with urethral caruncle. We discussed medical and surgical treatment options including physical therapy, manually reducing with voiding, pessaries, and surgery. I briefly described surgical management with an anterior repair. It should be noted that it does appear that she has had a prior anteriorvaginal wall surgery (suspected incontinence procedure versus anterior repair), so she would need urodynamics/office cystoscopy prior to a procedure. In regards to her caruncle and atrophic vaginal tissue, we discussed hypoestrogenization and it's effect on the vagina, urethra, and bladder. -begin vaginal estrogen, prescription sent in -plan for pessary fitting at a follow up visit -referral placed to PFPT, but will start kegals 3x/day additionally -Okay to attempt splinting to improve bladder emptying for now, prior to pessary fitting. Patient seen and discussed with Dr. Morris. Michaela Kong MD 05/12/2020 16:59 PGY-3, Obstetrics and Gynecology Attestation statement: I saw and examined the patient with the resident. I agree with the findings and plan of care documented in the resident's note. Edits as indicated above, in blue. -Would need repeat PVR after pessary trial Review of Systems Constitutional: Positive for malaise/fatigue. HENT: Negative. Eyes: Negative. Respiratory: Negative. Cardiovascular: Negative. Gastrointestinal: Negative. Genitourinary: Negative. Musculoskeletal: Positive for joint pain (stiffness). Skin: Negative. Neurological: Negative. Endo/Heme/Allergies: Negative. Psychiatric/Behavioral: Negative. All other systems reviewed and are negative. (See scanned documents) Kelley Morris MD documented in this encounter Plan of Treatment Upcoming Encounters Date Type Specialty Care Team Description 07/19/2022 Office Visit Ophthalmology Scout Ocasio MD [address] [place], [place] [phone] (Wo rk) 09/15/2022 Telemedicine Pelvic Medicine Kelley Morris MD [facility] [facility] [place], Medical Office Building, [address] [place], [place] [address] (Lavelle rk) Scheduled Referrals Name Type Priority Associated Diagnoses Order S chedule AMB CONS/FOLLOW UP Outpatient Referral Routine Cystocele, midl ine Expected: PHYSICAL THERAPY 05/12/2020 (Approximate) documented as of this encounter Procedures Procedure Name Priority Date/Time Associated Diagnosis Comme nts POCT CSN BARCODE Routine 05/12/2020 16:32 Cystocele, midline R esults for this URINE DIPSTICK EDT procedure are in the results section. POCT URINE CLINITEK Routine 05/12/2020 16:29 Cystocele, midlin e Results for this (DIPSTICK) - DOES EDT procedure are in NOT REFLEX the results section. POCT URINE Routine 05/12/2020 16:29 Cystocele, midline Resul ts for this DIPSTICK, CLINITEK EDT procedure are in the results section. documented in this encounter Results POCT CSN BARCODE URINE DIPSTICK (05/12/2020 16:32 EDT) Pathologist Sig nature Hold Hold [facility] Specimen Urine - Urine, Clean Catch Performing Organization Address City/State/ZIP Code Phon e Number [facility] [address] [place] [address] SERVICES POCT URINE DIPSTICK, CLINITEK (05/12/2020 16:29 EDT) Color, UA Yellow Yellow [facility] Clarity, UA Clear Clear [facility] Glucose, UA Negative Negative mg/dL [facility] Bilirubin, UA Negative Negative [facility] Ketones, UA Negative Negative mg/dL [facility] Specific [place], 1.025 1.001 - 1.035 [facility] Urine [facility] Blood, UA Negative Negative [facility] pH, UA 5.5 <=8 [facility] Protein, UA Negative Negative mg/dL [facility] Urobilinogen, UA 0.2 0.2 - 1.0 EU/dL [facility] Nitrite, UA Negative Negative [facility] Leuk Esterase Negative Negative [facility] implant coordinator ID [id number] [facility] LAB COMMENT Test performed at [facility] (CLINITEK, UR) the [facility] SERVICES Specimen Urine - Urine, Clean Catch Performing Organization Address City/State/ZIP Code Phon e Number [facility] [address] [place] [address] SERVICES documented in this encounter Visit Diagnoses Diagnosis Cystocele, midline - Primary documented in this encounter Historical Medications This list may reflect changes made after this encounter. Medication Sig Dispensed Refills Start Date End Date TURMERIC ORAL Take by mouth. 0 cranberry fruit extract Take by mouth. 0 (CRANBERRY EXTRACT ORAL) rsuui-3k-aux-epa-fish oil Take by mouth. 0 1,000-1,400 mg capsule,delayed release(DR/EC) Vitamin O92-Zesab Acid 0.5-1 mg Take by mouth. 0 tablet added in this encounter
--- OUTSIDE RECORDS SUMMARY | 2022-04-01 00:48 | XMS_ITS | Clinical Summary ---
:1945 Author Organization [facility] Address [address] [place] [address] Care Team Providers Name Role Phone Albina Canales MD Primary Care Provider Allergies Active Allergy Reactions Severity Noted Date Comments Milk Containing Products 09/01/2020 Egg 09/01/2020 Sulfa (Sulfonamide Antibiotics) 0 rash Wheat 09/01/2020 Medications Medication Sig Dispensed Refills Start Date End Date Status cholecalciferol, Take 1,000 Units by 0 Active Vitamin D3, 1,000 mouth daily. unit tablet calcium gluconate 500 Take 500 mg by 0 Active mg tablet mouth daily. Vitamin T30-Nqovg Take by mouth. 0 Active Acid 0.5-1 mg tablet ezrhv-3f-wvb-epa-fish Take by mouth. 0 Active oil 1,000-1,400 mg capsule,delayed release(DR/EC) cranberry fruit Take by mouth. 0 Active extract (CRANBERRY EXTRACT ORAL) TURMERIC ORAL Take by mouth. 0 A ctive Melatonin 5 mg Take by mouth. 0 11/10/2020 Active capsule estradioL (ESTRACE) Place 1 g vaginally 42.5 g 3 09/16/2021 Active 0.01 % (0.1 mg/gram) twice a week. vaginal creamIndications: Vaginal atrophy, Personal history UTI Active Problems Patient Care Coordination Note Formatting of this note might be differe nt from the original. No Active Supplement found on Connex. Sy lvia Maille 06/21/2021 7:04 No known active problems Encounters Date Type Specialty Care Team Description 02/11/2022 Lab Requisition Clinical Laboratory Outr Resulting Lab, Provider 02/10/2022 Telephone Pelvic Medicine Mackenzie Jimenez Medicat ion RN Management from Last 3 Months Surgical History Surgery Date Site/Laterality Comments HYSTERECTOMY 09/18/1993 - TVH/BSO for prol apse 09/17/1994 ANTERIOR CRUCIATE LIGAMENT 09/18/1984 - Right REPAIR 09/17/1985 HIP FRACTURE SURGERY 09/18/2016 - Right 09/17/2017 HIP FRACTURE SURGERY 09/18/2014 - Left 09/17/2015 CHOLECYSTECTOMY, LAPAROSCOPIC Medical History Medical History Date Comments GERD (gastroesophageal reflux disease) Family History Medical History Relation Name Comments Brain Cancer Brother glyoblastoma glioblastoma Macular Degeneration Brother glyoblastoma Arthritis Father Cataract Father Diabetes Father age 99 Breast Cancer Mother Dementia Mother Colon Cancer Neg Hx Colon Polyps Neg Hx Endometrial Cancer Neg Hx Esophageal Cancer Neg Hx Ovarian Cancer Neg Hx Pancreatic Cancer Neg Hx Rectal Cancer Neg Hx Stomach Cancer Neg Hx Relation Name Status Comments Brother glyoblastoma Alive Father Mother Social History Tobacco Use Types Packs/Day Years [...] Assigned at Date Recorded Not on file Last Filed Vital Signs Vital Sign Reading Time Taken Comments Blood Pressure 109/67 09/01/2020 1446 EST Pulse 75 09/01/2020 1446 EST Temperature 36 ??C (96.8 ??F) 09/28/2011 0854 EST Respiratory Rate 16 09/28/2011 1000 EST Oxygen Saturation 94% 09/28/2011 1000 EST Inhaled Oxygen Concentration - - Weight 61.2 kg (135 lb) 09/28/2011 0852 EST Height 162.6 cm (5' 4) 09/28/2011 0852 EST Body Mass Index 23.17 09/28/2011 0852 EST Plan of Treatment Upcoming Encounters Date Type Specialty Care Team Description 07/19/2022 Office Visit Ophthalmology Scout Ocasio MD [address] [place] [address] (Wo rk) 09/15/2022 Telemedicine Pelvic Medicine Kelley Morris MD [address] [facility] [place], Medical Office Building, [address] [place], [place] [address] (Wo rk) Health Maintenance Due Date Last Done Comments COVID-19 Vaccine (#1) 04/19/1946 Fall Risk Screening 2008 Hepatitis C Screen Completed 02/11/2022 Procedures Procedure Name Priority Date/Time Associated Diagnosis Comme nts HOLD SST Today 02/11/2022 8:30 EDT Results for this procedure are i n the results section. T3 FREE Today 02/11/2022 8:30 EDT Results for this procedure are i n the results section. HEPATITIS C AB W Today 02/11/2022 8:30 EDT Resu lts for this REFLEX TO HCV RNA procedure are in BY PCR the results section. CORTISOL Today 02/11/2022 8:30 EDT Results for this procedure are i n the results section. from Last 3 Months Results HOLD SST (02/11/2022 8:30 EDT) Pathologist Sig nature Hold Hold [facility] Specimen Blood - Venous blood (substance) Performing Organization Address City/[facility]/ZIP Code Phon e Number [facility] [address] [place] [address] SERVICES HEPATITIS C AB W REFLEX TO HCV RNA BY PCR (02/11/2022 8:30 EDT) Pathologist Sig nature Hep C Antibody Negative Negative [facility] SERVICES Specimen Blood - Venous blood (substance) Performing Organization Address City/State/ZIP Code Phon e Number [facility] [address] [place] [address] SERVICES T3 FREE (02/11/2022 8:30 EDT) Pathologist Sig nature T3, Free 3.0 2.8 - 5.3 pg/mL [facility] SERVICES Specimen Blood - Venous blood (substance) Performing Organization Address City/State/ZIP Code Phon e Number [facility] [address] [place] [address] SERVICES CORTISOL (02/11/2022 8:30 EDT) Cortisol 11 See Note ug/dL [facility] Comment: LABORATORY SERVICES NOTE: Reference Ranges (from [facility]): Collected Before 10:00 AM: ??4 - 23 ug/dL Collected After 5:00 PM: ?2 - 14 ug/dL The results of this assay ca n be falsely elevated due to the consumption of Biotin. Specimen Blood - Venous blood (substance) Performing Organization Address City/State/ZIP Code Phon e Number [facility] [address] [place] [address] SERVICES from Last 3 Months Insurance Payer Benefit Plan / Subscriber ID Effective Phone Address T ype Group Dates [facility] [id number] 2013-Pres [phone] SUPPLEMENTAL ent [id number] [place] [address] MEDICARE MEDICARE A/B [id number] 2008-Pres [address] edicare GL ent [id number] [place] [address] Sherly Pagan Personal/Family Self 1945 [phone] (Home) [place] [address] Advance Directives For more information, please contact: [phone] Documents on File Type Date Recorded Patient Adult Health Clinical Nurse Specialist Explanati on Advance Directives and Living Will Power of [place]endette Care Teams Medicare Sales Executive Relationship Specialty Start Date End Date Albina Canales MD PCP - General 06/22/[address] [place] [phone]
--- OUTSIDE RECORDS SUMMARY | 2022-04-01 00:48 | XMS_ITS | Encounter Summary ---
:1945 Author Organization [facility] Address [address] [place] [address] Care Team Providers Name Role Phone Unavailable Primary Care Provider Unavailable Encounter Details Date Type Department Care Team Description 08/08/2002 Results Only [facility] - Edward Roberts MD conversion [address] [place] [address] Social History Tobacco Use Types Packs/Day Years [...] Office Visit Ophthalmology Scout Ocasio MD [address] [place], [place] [phone] (Lavelle gee) 09/15/2022 Telemedicine Pelvic Medicine Kelley Morris MD [address] [place] [address] Medical Office Building, [address] [place], [place] [phone] (Lavelle gee) documented as of this encounter Procedures Procedure Name Priority Date/Time Associated Diagnosis Comme nts SURGICAL PATHOLOGY Routine 08/08/2002 0:00 EST Re sults for this procedure are i n the results section. documented in this encounter Results SURGICAL PATHOLOGY (08/08/2002 0:00 EST) Pathology Report: SURGICAL PATHOLOGY REPORT RADHA AGUERO Reports generated via electronic interface contain larry ginal data; LAB however they are lacking the format of the original re port. Caution should be taken when reading/interpreting unfo rmatted reports. Name: ? SHERLY MONTERO ? Accession #: ? [id number] ? : ? 1945 (Age: 56) ??F ? Collect Date: ? 08/08/2002 ? Location: ? [facility] ? Receive Date: ? 002 ? Provider: EDWARD NGUYEN MD Copy to: ANGELINE ELKINS MD ? Final Pathologic Diagnosis: A. ?Uterus, hysterectomy: 1. ?Endometrium: ? - ??Mild cystic atrophy. 2. ?Myometrium: ? - ??No specific pathologic findings. 3. ?Cervix: ? - ??Benign, slightly atrophic ecto- and endocer vix, no atypia. B. ?Ovary, left, oophorectomy: 1. ?No specific pathologic findings. C. ?Ovary, right, oophorectomy: ? 1. ?? No specific pathologic findings. Document reviewed and electronically signed by: Jason Hoover MD Report ??Date: 08/12/2002 16:01 By the signature above, the attending physician certif ies that he/she has personally conducted a gross and/or microscopic examin ation of the described specimens and rendered or confirmed the above diagnosi s. Specimen(s) Received: A. ?Uterus B. ?Left ovary C. ?Right ovary Clinical History: ? Prolapse; cystocele Gross Description: ? Received in formalin labelled Ej and uterus is a uterus and cervix without adnexa that cannot be oriented as to ant erior and posterior. ??It has been opened up either the an terior or posterior aspect. ??The endometrium is valdez and generally smooth. ??Sect ioning reveals an endometrium with a thickness of 0.1 to 0.2 cm and a valdez-pink myometrium with a maxim um thickness of 1.5 cm and no distinct nodules. ??The endo cervix is valdez and has a martins bone pattern. ??The ectocervix is white and smooth and the squamocolumnar junction is grossly discernible. ?? BLOCK COLEMAN A1-A2 ?Full thi ckness sections of endomyometrium from one half of the uterus A3-A4 ?Full thi ckness sections of endomyometrium from the other half of the uterus A5-A6 ?Full thickness sections of t he cervix from the first half A7-A8 ?Full thickness sections of cervix from the other half Received in formalin labelled Ej and left ovary is a product of an oophorectomy that measures 2.0 x 1.4 x 0.7 cm. ??The s urface is nodular and white-pink and smooth. ??Sectioning of the specimen re veals no grossly discernible abnormalities. ??Two represe ntative sections are submitted as (B). Received in formalin labelled Ej and right ovar y is a product of an oophorectomy that measures 2.0 x 1.5 x 0 .6 cm. ??The surface is white-pink and smooth and finely lobular. ??Sectioning of the specime n reveals no grossly discernible abnormalities. ??Two represe ntative sections are submitted as (C). (Dr. Melo)/mhd End of Report Specimen Performing Organization Address City/State/ZIP Code Phon e Number [facility] [address] [place] [address] SERVICES [facility] [address] [place] [address] documented in this encounter Visit Diagnoses Not on filedocumented in this encounter
--- OUTSIDE RECORDS SUMMARY | 2022-04-01 00:48 | XMS_ITS | Encounter Summary ---
:1945 Author Organization [facility] Address [address] [place] [address] Care Team Providers Name Role Phone Albina Canales MD Primary Care Provider Encounter Details Date Type Department Care Team Description 02/11/2022 Lab Requisition [facility] Outr Resulting Lab, Pathology & Laboratory Provider [facility] [address] [place], [place] [address] Social History Tobacco Use Types Packs/Day Years [...] Office Visit Ophthalmology Scout Ocasio MD [address] [place], [place] [phone] (Wo rk) 09/15/2022 Telemedicine Pelvic Medicine Kelley Morris MD [address] [place] [address], Medical Office Building, [address] [place], [place] [phone] (Lavelle rk) documented as of this encounter Procedures Procedure Name Priority Date/Time Associated Diagnosis Comme nts HOLD SST Today 02/11/2022 8:30 EDT Results for this procedure are i n the results section. HEPATITIS C AB W Today 02/11/2022 8:30 EDT Resu lts for this REFLEX TO HCV RNA procedure are in BY PCR the results section. T3 FREE Today 02/11/2022 8:30 EDT Results for this procedure are i n the results section. CORTISOL Today 02/11/2022 8:30 EDT Results for this procedure are i n the results section. documented in this encounter Results HOLD SST (02/11/2022 8:30 EDT) Pathologist Sig nature Hold Hold [facility] Y SERVICES Specimen Blood - Venous blood (substance) Performing Organization Address [facility]/ZIP Code Phon e Number [facility] [address] [place] [address] SERVICES T3 FREE (02/11/2022 8:30 EDT) Pathologist Sig nature T3, Free 3.0 2.8 - 5.3 pg/mL [facility]OR[facility] TORY SERVICES Specimen Blood - Venous blood (substance) Performing Organization Address [facility]/ZIP Code Phon e Number [facility] [address] [place] [address] SERVICES HEPATITIS C AB W REFLEX TO HCV RNA BY PCR (02/11/2022 8:30 EDT) Pathologist Sig nature Hep C Antibody Negative Negative [facility] LABORAT ORY SERVICES Specimen Blood - Venous blood (substance) Performing Organization Address City/[facility]/ZIP Code Phon e Number [facility] [address] [place] [address] SERVICES CORTISOL (02/11/2022 8:30 EDT) Cortisol 11 See Note ug/dL [facility] Comment: LABORATORY SERVICES NOTE: Reference Ranges (from [facility] IFU): Collected Before 10:00 AM: ??4 - 23 ug/dL Collected After 5:00 PM: ?2 - 14 ug/dL The results of this assay ca n be falsely elevated due to the consumption of Biotin. Specimen Blood - Venous blood (substance) Performing Organization Address City/[facility]/ZIP Code Phon e Number [facility] [address] [place] [address] SERVICES documented in this encounter Visit Diagnoses Not on filedocumented in this encounter Care Teams Consulting Property Manager Relationship Specialty Start Date End Date Albina Canales MD PCP - General 06/22/[address] [place] [phone] documented as of this encounter
--- OUTSIDE RECORDS SUMMARY | 2022-04-01 00:48 | XMS_ITS | Encounter Summary ---
:1945 Author Organization [facility] Address [address] [place] [address] Care Team Providers Name Role Phone Unavailable Primary Care Provider Unavailable Reason for Visit Reason Onset Date Comments Appointment Related 05/14/2020 Encounter Details Date Type Department Care Team Description 05/14/2020 Telephone [facility] Therapy, Physical Appo intment Related Rehabilitation Therapy - Medical Office Build ing [address] [place], [place] [phone] Social History Tobacco Use Types Packs/Day Years [...] this encounter Miscellaneous Notes Telephone Encounter - Anne Boland - 05/14/2020 1237 EDT [facility] - MEDICAL OFFICE BUILDING [address] [facility] [address] Telephone Intake Information for Scheduling NEW Patients for Therapy Script/referral: In MICHELE Referral date: 05/12/2020 Referring Provider: BARBIE MORRIS Diagnosis: PROLAPSE Primary Insurance: Medicare A/B If Medicare: Have you been seen in therapy since September first of this year? No Are you receiving any home health or VNA services? No Notes: MAILED PAPERWORK HOME. PATIENT ONLY SCHEDULED FOR 1 AT THIS TIME Anne Boland 05/14/2020 documented in this encounter Plan of Treatment Upcoming Encounters Date Type Specialty Care Team Description 07/19/2022 Office Visit Ophthalmology Scout Ocasio MD [address] [place], [place] [phone] (Wo rk) 09/15/2022 Telemedicine Pelvic Medicine Barbie Morris MD [address] [place] [address], Medical Office Building, [address] [place], [place] [phone] (Lavelle gee) documented as of this encounter Visit Diagnoses Not on filedocumented in this encounter
--- OUTSIDE RECORDS SUMMARY | 2022-04-01 00:48 | XMS_ITS | Encounter Summary ---
:[address] [facility] Address [address] [place] [address] Care Team Providers Name Role Phone Albina Canales MD Primary Care Provider Reason for Visit Reason Onset Date Comments Medication Management 02/10/2022 Encounter Details Date Type Department Care Team Description 02/10/2022 Telephone [facility] Irina Jimenez RN Medication Pelvic Medicine and [address] [place] [address] Reconstructive Surgery - [place] Medical Office [place], [place] [phone] [place] [address] [address] [place] [address] Social History Tobacco Use Types Packs/Day Years [...] this encounter Miscellaneous Notes Telephone Encounter - Maceknzie Jimenez RN - 02/10/2022 1022 EDT Call to patient and she was not aware she had refills. Normally the pharmacy just sends it. Patient will contact [facility]. Will follow up with clinic as needed documented in this encounter Plan of Treatment Upcoming Encounters Date Type Specialty Care Team Description 07/19/2022 Office Visit Ophthalmology Scout Ocasio MD [address] [place] [phone] (Wo rk) 09/15/2022 Telemedicine Pelvic Medicine Kelley Morris MD 2 [facility] Medical Office Building, [address] [place], [place] [phone] (Wo rk) documented as of this encounter Visit Diagnoses Not on filedocumented in this encounter Care Teams Frame Nailer Relationship Specialty Start Date End Date Albina Canales MD PCP - General 06/22/[address] [place] [phone] documented as of this encounter
--- OUTSIDE RECORDS SUMMARY | 2022-04-01 00:48 | XMS_ITS | Encounter Summary ---
:1945 Author Organization [facility] Address [address] [place] [address] Care Team Providers Name Role Phone Unavailable Primary Care Provider Unavailable Encounter Details Date Type Department Care Team Description 09/01/2020 Plan of Care Documentation [facility] Rehabilitation Therapy Continence Services - Medical Office Build [facility] [place], [place] [phone] Social History Tobacco Use Types Packs/Day Years [...] on file documented as of this encounter Progress Notes Smiley Ling, PT - 09/01/2020 3105 EST Outpatient Rehab Plan of Care Assessment Pt with chief complaint of vaginal pressure, which is resolving since her spring [address] Morris. Pelvic floor dysfunction is manifesting as underactivity and weakness. Pt has pelvic floor muscle weakness, limited endurance, limited coordination, and lack of awareness of functional use of these muscles which is contributing to this problem. Pain is not present. Skilled Physical Therapy is medically needed to assist pt in optimizing pelvic floor muscle functionto improve organ support , to educate pt regarding the role of increases in intra-abdominal pressureon pelvic floor/organs, and in a home exercise/self care program. Pt has been instructed in a program of kegel's exercises which she has performed for 4 + weeks but which have not assisted in resolving her incontinence, therefore emg biofeedback of PFM activity is indicated. Prognosis for goal attainment is Good. Potential barriers to treatment/progress include: none noted.Pt would like to continue with an independent program and call if she has questions or would like toarrange follow up. Goals: MET Pt to be able to perform the knack prior to episodes of increased intra- abdominal pressure (cough/sneeze, etc). Pt independent with introductory home exercise program of appropriate PFM exercises. Pt aware of strategies to minimize effects of increased intra-abdominal pressure on pelvic organs byreducing breath holding with exercises and daily activities P: Treatment/intervention: PT will be provided by Physical Therapist Frequency: Pt to call if she requires follow up or has questions Intensity: Up to 60 minutes Duration: up to 2 visits Interventions may include: Therapeutic Exercises Neuromuscular Reeducation Self-care/Home-management Further data: none needed Patient/family education: ongoing in topics noted above Discharge plan: When goals are met or progress plateaus. Plan ATTENDING PHYSICIAN: Medicare certification needed. Your signature indicates you approve the therapygoals and plan of care outlined on this document dated 09/01/2020. Thank you! Attending Physician Signature Date Smiley Ling PT 09/01/2020 16:37 documented in this encounter Plan of Treatment Upcoming Encounters Date Type Specialty Care Team Description 07/19/2022 Office Visit Ophthalmology Scout Ocasio MD [address] [place] [phone] (Lavelle gee) 09/15/2022 Telemedicine Pelvic Medicine Kelley Morris MD [address] [place] [address], Medical Office Building, [address] [place], [place] [phone] (Lavelle gee) documented as of this encounter Visit Diagnoses Not on filedocumented in this encounter
--- OUTSIDE RECORDS SUMMARY | 2022-04-01 00:48 | XMS_ITS | Encounter Summary ---
:1945 Author Organization [facility] Address [address] [place] [address] Care Team Providers Name Role Phone Albina Canales MD Primary Care Provider Reason for Visit Reason Comments Eye Exam Complete exam: Pseudoexfolia tion evaluation, per Dr. Pagan Encounter Details Date Type Department Care Team Description 06/22/2021 Office Visit [facility] Tre Ocasio MD Ophthalmology - [place] in [address] [place] [phone] [address] [place], [place] [address] [phone] Social History Tobacco Use Types Packs/Day Years [...] documented as of this encounter Progress Notes Scout Ocasio MD - 06/22/2021 4169 EDT Chief Complaint Patient presents with ??? Eye Exam Complete exam: Pseudoexfoliation evaluation, per Dr. Pagan HPI The patient is a 75 y.o. female here for evaluation of Pseudoexfoliation. She reports vision has been stable over the past few years with stable floaters, no flashes, and no eye pain. She has dry eyes and uses artificial tears. Right Eye: Left Eye: Visual Aid: Glasses Current Rx Age 1 years Location: Pain: Quality: Severity: Duration: Timing: Lasts: Context: Pseudoexfoliation evaluation, per Dr. Pagan Modifying factors: Stable vision reported over the past couple of years. Had punctal plugs placed and this has helped with dry eyes significantly and does not feel the need to use tear drops. Associated Signs & Symptoms: Stable floaters reported. Denies flashes of light. Reports history of migraine with aura, but nothing recent (in years). Attestation: ROS Constitutional: NL ENT/Mouth NL Cardiovascular: NL Respiratory: NL Gastrointestinal: NL Genitourinary: NL Musculoskeletal: (osteoarthritis) Integumentary: NL Neurologic: NL Psychiatric: NL Endocrine: NL Hematologic: NL Immunologic: Drug Allergy, Food Allergy Sports Director: Exposures: None Other: Attestation: Base Eye Exam Visual Acuity (Snellen - Linear) Right Left Dist cc 20/20 -1 20/20 Correction: Glasses Tonometry (Applanation, 9:59) Right Left Pressure 17 17 Pupils Pupils APD Right PERRL None Left PERRL None Visual Soni (Counting fingers) Right Left Full Full Extraocular Movement Right Left Full Full Neuro/Psych Oriented x3: Yes Mood/Affect: Normal Dilation Both eyes: Tropicamide 1%, Phenylephrine 2.5% @ 10:00 Slit Lamp and Fundus Exam Slit Lamp Exam Right Left Lids/Lashes Normal, punctal plug present Normal, no plug Conjunctiva/Sclera White and quiet White and quiet Cornea Clear Clear Anterior Chamber Deep and quiet Deep and quiet Iris Round and reactive Round and reactive Lens 2+ Cortical cataract 2+ Nuclear sclerosis, Pseudoexfoliation Fundus Exam Right Left Vitreous Normal Normal Disc Healthy Rim Healthy Rim C/D Ratio 0.55 0.5 Macula Normal Normal Vessels Normal Normal Periphery Normal Normal Refraction Wearing Rx Sphere Cylinder [place] Right +1.50 +1.75 179 Left +0.50 +0.75 009 Manifest Refraction (Auto) Sphere Cylinder [place] Dist VA Add Right +1.50 +1.75 176 Left +0.75 +0.75 003 Manifest Refraction #2 Sphere Cylinder [place] Dist VA Add Right +1.75 +1.50 002 20/20 +2.50 Left +0.75 +0.75 002 20/20 +2.50 Dist VA Both: 20/15 Final Rx Sphere Cylinder [place] Add Right +1.75 +1.50 002 +2.50 Left +0.75 +0.75 002 +2.50 Expiration Date: 06/23/2023 DIAGNOSTIC TESTING/PROCEDURES: OCT, Optic Nerve - OU - Both Eyes Indication: Glaucoma suspect OCT Optic Nerve Head and rNFL: Right: signal strength: 9/10 Avg thickness: 88 no thinning Left: signal strength: 8/10 Avg thickness: 85 no thinning IMPRESSION & PLAN: 1. Glaucoma suspect, both eyes With pseudoexfoliation IOP is normal today Baseline OCT rNFL today Plan for Pelletier visual field 24-2 at next visit Return in 1 year with OCT rNFL and HVF 24-2 2. Cataract, both eyes Not visually significant -Monitor periodically 3. Dry eye syndrome, both eyes Plug in right, no plug in left. -Discussed contributing factors, not significantly symptomatic right now. -Recommend proactive use of artificial tears 2-4 times daily 4. Disorder of refraction and accommodation -Give glasses Rx patient???s option to fill I have reviewed the patient's past medical, family, social and surgical history. I have also reviewed the patient's medications, allergies, and problem list. I performed my own HPI and have reviewed the tech's ROS as well. I completed this exam personally. Scout Ocasio MD I am scribing for Scout Ocasio MD, while he is personally performing the service. KALEN Vargas Patient Education Topic: pseudoexfoliation, cataracts Method: Verbal Taught to: Patient Barriers: None Outcomes: independent Signature: Scout Ocasio MD documented in this encounter Plan of Treatment Upcoming Encounters Date Type Specialty Care Team Description 07/19/2022 Office Visit Ophthalmology Scout Ocasio MD [address] [place] [phone] (Wo rk) 09/15/2022 Telemedicine Pelvic Medicine Kelley Morris MD [address] [place] [address] [facility] Building, [address] [place], [place] [phone] (Wo rk) documented as of this encounter Procedures Procedure Name Priority Date/Time Associated Diagnosis Comme nts OCT, OPTIC NERVE - Routine 06/22/2021 16:43 Suspected glaucoma Results for this OU - BOTH EYES EDT of both eyes procedure are in Pseudoexfoliation the result s (PXF) of left lens section. capsule documented in this encounter Results OCT, OPTIC NERVE - OU - BOTH EYES (06/22/2021 16:43 EDT) Specimen Narrative [facility] POINT OF CARE - 06/22/2021 16:43 E DT Indication: Glaucoma suspect OCT Optic Nerve Head and rNFL: Right: si gnal strength: 9/10 Avg thickness: 88 no thinning Left: signal strength: 8/10 Avg thicknes s: 85 no thinning Performing Organization Address City/State/ZIP Code Phon e Number [facility] POINT [facility] CARE documented in this encounter Visit Diagnoses Diagnosis Suspected glaucoma of both eyes - Primar y Pseudoexfoliation (PXF) of left lens cap erik Senile nuclear sclerosis, right Senile nuclear sclerosis, left Dry eye Tear film insufficiency, unspecified Disorder of refraction and accommodation Unspecified disorder of refraction and a ccommodation documented in this encounter Historical Medications This list may reflect changes made after this encounter. Medication Sig Dispensed Refills Start Date End Date Melatonin 5 mg capsule Take by mouth. 0 1 added in this encounter Eye Exam Visual Acuity (Snellen - Linear) Right eye Left eye Dist cc 20/20 -1 20/20 Correction: Glasses Tonometry (Applanation, 9:59) Right eye Left eye Pressure 17 17 Pupils Pupils APD Right eye PERRL None Left eye PERRL None Visual Soni (Counting fingers) Right eye Left eye Full Full Extraocular Movement Right eye Left eye Full Full Neuro/Psych Oriented x3: Yes Mood/Affect: Normal Dilation Both eyes: Tropicamide 1%, Phenylephrine 2.5% @ 10:00 Slit Lamp Exam Right eye Left eye Lids/Lashes Normal, punctal plug present Normal, no plug Conjunctiva/Sclera White and quiet White and quiet Cornea Clear Clear Anterior Chamber Deep and quiet Deep and quiet Iris Round and reactive Round and reactive Lens 2+ Cortical cataract 2+ Nuclear sclerosi s, Pseudoexfoliation Vitreous Normal Normal Fundus Exam Right eye Left eye Disc Healthy Rim Healthy Rim C/D Ratio 0.55 0.5 Macula Normal Normal Vessels Normal Normal Periphery Normal Normal Wearing Rx Sphere Cylinder [place] Right eye +1.50 +1.75 179 Left eye +0.50 +0.75 009 Manifest Refraction #1 (Auto) Sphere Cylinder [place] Dist VA Add Right eye +1.50 +1.75 176 Left eye +0.75 +0.75 003 Manifest Refraction #2 Sphere Cylinder [place] Dist VA Add Right eye +1.75 +1.50 002 20/20 +2.50 Left eye +0.75 +0.75 002 20/20 +2.50 Dist VA Both: 20/15 Final Rx Sphere Cylinder [place] Add Right eye +1.75 +1.50 002 +2.50 Left eye +0.75 +0.75 002 +2.50 Expiration Date: 06/23/2023 Care Teams Entry Level Marketing Representative Relationship Specialty Start Date End Date Albina Canales MD PCP - General 06/22/[address] [phone] documented as of this encounter
--- OUTSIDE RECORDS SUMMARY | 2022-04-01 00:48 | XMS_ITS | Encounter Summary ---
:1945 Author Organization [facility] Address [address] [place] [address] Care Team Providers Name Role Phone Unavailable Primary Care Provider Unavailable Encounter Details Date Type Department Care Team Description 12/22/2020 Orders Only [facility] Pelvic Briseyda Meyer RN Medicine and Reconstructive Surgery - Medical Office [place] [address] [address] [place], [place] [phone] Social History Tobacco Use Types Packs/Day Years [...] 0.[address] Place 1 g vaginally 42.5 g 1 04/27/2021 % (0.1 mg/gram) vaginal twice a week. cream documented in this encounter Progress Notes Briseyda Meyer, RN - 12/22/2020 1035 EDT Medication Refill Request Pharmacy Request Medication: Estradiol Pt completely out: Unknown Last office visit: 09/01/2020 Pending visit: N/A If appointment needed-message left/appointment made: N/A Pharmacy confirmed:Yes Amount filled/# of refills: 1 tube with 1 refill documented in this encounter Plan of Treatment Upcoming Encounters Date Type Specialty Care Team Description 07/19/2022 Office Visit Ophthalmology Scout Ocasio MD [address] [place] [phone] (Wo rk) 09/15/2022 Telemedicine Pelvic Medicine Kelley Morris MD 2 [facility] Medical Office Building, [address] [place], [place] [phone] (Wo rk) documented as of this encounter Visit Diagnoses Not on filedocumented in this encounter Discontinued Medications Medication Sig Discontinue Reason Start Date End Date estradioL (ESTRACE) Place 1 g vaginally 05/14/2020 0 12/22/2020 0.01 % (0.1 mg/gram) twice a week. vaginal cream documented as of this encounter
--- OUTSIDE RECORDS SUMMARY | 2022-04-01 00:48 | XMS_ITS | Encounter Summary ---
:1945 Author Organization [facility] Address [address] [place] [address] Care Team Providers Name Role Phone Unavailable Primary Care Provider Unavailable Encounter Details Date Type Department Care Team Description 09/28/2011 Hospital Encounter [facility] Sophie Armendariz ldo Room 7 Endoscopy - Main Cam pus [address] [place] [address] Social History Tobacco Use Types Packs/Day Years Used Date Never Assessed Alcohol Use Standard Drinks/Week Comments Yes 1 (1 standard drink = 0.6 oz pure alcoho l) occas Alcohol Habits Answer Date Recorded How often do you have a drink containing alcohol? Monthly or less 02/27/2020 How many drinks containing alcohol do you have on a Not aske d typical day when you are drinking? How often do you have six or more drinks on one Not asked occasion? Comment: occas 09/28/2011 Sex Assigned at Date Recorded Not on file documented as of this encounter Medications at Time of Discharge Medication Sig Dispensed Refills Start Date End Date calcium gluconate 500 mg Take 500 mg by mouth 0 tablet daily. cholecalciferol, Vitamin Take 1,000 Units by 0 D3, 1,000 unit tablet mouth daily. aspirin chewable 81 mg Take 81 mg by mouth 0 10/26/2021 tablet daily. Xxzefizsf-WHY-Phojpcrtzhu TAKE BY MOUTH 1 Bottle 0 011 02/27/2020 Soln (HALFLYTELY-BISACODYL BOWEL KIT) 10-210 mg-gram KitIndications: Screening for colon cancer GRAPE SEED EXTRACT ORAL Take by mouth. 0 10/26/2021 documented as of this encounter Discharge Disposition Disposition Code Departure Means Destination Home or Self Alf documented in this encounter Plan of Treatment Upcoming Encounters Date Type Specialty Care Team Description 07/19/2022 Office Visit Ophthalmology Scout Ocasio MD [address] [place], [place] [phone] (Wo rk) 09/15/2022 Telemedicine Pelvic Medicine Kelley Morris MD [address] [place] [address], Medical Office Building, [address] [place], [place] [phone] (Wo rk) documented as of this encounter Visit Diagnoses Not on filedocumented in this encounter
--- OUTSIDE RECORDS SUMMARY | 2022-04-01 00:48 | XMS_ITS | Encounter Summary ---
:1945 Author Organization [facility] Address [address] [place] [address] Care Team Providers Name Role Phone Unavailable Primary Care Provider Unavailable Encounter Details Date Type Department Care Team Description 05/25/2000 Results Only [facility] - Edward Roberts MD conversion [address] [place] [address] Social History Tobacco Use Types Packs/Day Years [...] Office Visit Ophthalmology Scout Ocasio MD [address] [place] [phone] (Lavelle gee) 09/15/2022 Telemedicine Pelvic Medicine Kelley Morris MD [address] [place] [address], Medical Office Building, [address] [place], [place] [phone] (Lavelle gee) documented as of this encounter Procedures Procedure Name Priority Date/Time Associated Diagnosis Comme nts CYTOPATHOLOGY Routine 05/25/2000 0:00 EDT Results for this procedure are i n the results section . documented in this encounter Results CYTOPATHOLOGY (05/25/2000 0:00 EDT) Pathology Report: CYTOPATHOLOGY REPORT [facility] Reports generated via electronic interface contain larry ginal data; however they are lacking the format of the original re port. Caution should be taken when reading/interpreting unfo rmatted reports. Name: ? SHERLY MONTERO ? Accession #: ? [id number] : ? 1945 (Age: 54) ??F ?Collect Date: ? 03/2000 Location: ? [facility] ? Receive Date : ? 05/29/2000 Provider: ?EDWARD NGUYEN MD Copy to: ? Specimen/Source: ?ThinPrep Pap Test, Cervix/ Endocervix Last Menstrual Period: ? Hormonal/Contraceptive Status: ? Hormone Replacement Therapy ? SPECIMEN ADEQUACY ? Satisfactory for evaluation. GENERAL CATEGORIZATION ? Within Normal Limits ? Document reviewed and electronically signed by: ? Tosha Sheehan, ??SCT(ASCP) ? Report Date: ??05/30/2000 12:55 End of Report Specimen Performing Organization Address City/State/ZIP Code Phon e Number [facility] [address] [place] [address] SERVICES [facility] [address] [place] [address] documented in this encounter Visit Diagnoses Not on filedocumented in this encounter
--- OUTSIDE RECORDS SUMMARY | 2022-04-01 00:48 | XMS_ITS | Encounter Summary ---
:1945 Author Organization [facility] Address [address] [place] [address] Care Team Providers Name Role Phone Unavailable Primary Care Provider Unavailable Encounter Details Date Type Department Care Team Description 06/04/2001 Results Only [facility] - Edward Roberts MD conversion [address] [place] [address] Social History Tobacco Use Types Packs/Day Years [...] Office Visit Ophthalmology Scout Ocasio MD [address] [place] [phone] (Lavelle gee) 09/15/2022 Telemedicine Pelvic Medicine Kelley Morris MD [address] [place] [address], Medical Office Building, [address] [place], [place] [phone] (Lavelle gee) documented as of this encounter Procedures Procedure Name Priority Date/Time Associated Diagnosis Comme nts CYTOPATHOLOGY Routine 06/04/2001 0:00 EDT Results for this procedure are i n the results section . documented in this encounter Results CYTOPATHOLOGY (06/04/2001 0:00 EDT) Pathology Report: CYTOPATHOLOGY REPORT [facility] Reports generated via electronic interface contain larry ginal data; however they are lacking the format of the original re port. Caution should be taken when reading/interpreting unfo rmatted reports. Name: ? SHERLY MONTERO ? Accession #: ? [id number] : ? 1945 (Age: 55) ??F ?Collect Date: ? 05/19 Location: ? [facility] ? Receive Date : ? 06/05/2001 Provider: ?EDWARD NGUYEN MD Copy to: ? Specimen/Source: ?ThinPrep Pap Test, Cervix/ Endocervix Last Menstrual Period: ? Hormonal/Contraceptive Status: ? Yes: Estrace ? SPECIMEN ADEQUACY ? Satisfactory for evaluation. GENERAL CATEGORIZATION ? Within Normal Limits ? Document reviewed and electronically signed by: ? ERLIN Nixon(ASCP) ? Report Date: ??06/06/2001 14:03 End of Report Specimen Performing Organization Address City/State/ZIP Code Phon e Number [facility] [address] [place] [address] SERVICES [facility] [address] [place] [address] documented in this encounter Visit Diagnoses Not on filedocumented in this encounter
--- OUTSIDE RECORDS SUMMARY | 2022-04-01 00:48 | XMS_ITS | Encounter Summary ---
:[address] [facility] Address [address] [place] [address] Care Team Providers Name Role Phone Unavailable Primary Care Provider Unavailable Encounter Details Date Type Department Care Team Description 09/28/2011 Hospital Encounter [facility] Alvin Hernandez MD Endoscopy Outpatient [address], [place] [phone] (Wo rk) Social History Tobacco Use Types [...] Sign Reading Time Taken Comments Blood Pressure 91/59 09/28/2011 1000 EST Pulse - - Temperature 36 ??C (96.8 ??F) 09/28/2011 0854 EST Respiratory Rate 16 09/28/2011 1000 EST Oxygen Saturation 94% 09/28/2011 1000 EST Inhaled Oxygen Concentration - - Weight 61.2 kg (135 lb) 09/28/2011 0852 EST Height 162.6 cm (5' 4) 09/28/2011 0852 EST Body Mass Index 23.17 09/28/2011 0852 EST documented in this encounter Medications at Time of Discharge Medication Sig Dispensed Refills Start Date End Date calcium gluconate 500 mg Take 500 mg by mouth 0 tablet daily. cholecalciferol, Vitamin Take 1,000 Units by 0 D3, 1,000 unit tablet mouth daily. aspirin chewable 81 mg Take 81 mg by mouth 0 10/26/2021 tablet daily. Ygnokdewc-RCD-Sfhzxzatixa TAKE BY MOUTH 1 Bottle 0 011 02/27/2020 Soln (HALFLYTELY-BISACODYL BOWEL KIT) 10-210 mg-gram KitIndications: Screening for colon cancer GRAPE SEED EXTRACT ORAL Take by mouth. 0 10/26/2021 documented as of this encounter Discharge Disposition Disposition Code Departure Means Destination Home or Self Care documented in this encounter H&P Notes Shahid Hernandez MD - 09/28/2011 0914 EST Sedation for Procedure History & Physical Date: 09/28/2011 Time: 9:14 Location: [address] Planned Procedure: Colonoscopy Chief Complaint/Indications for Procedure: screen History Previous Complication with Sedation and/or Anesthesia? No Allergies: No Known Allergies Current Medications: (Not in a hospital admission) Past Medical History: Past Medical History Diagnosis Date ??? GERD (gastroesophageal reflux disease) Social History: Past Surgical History Procedure Date ??? Cholecystectomy ??? Hysterectomy History Substance Use Topics ??? Smoking status: Not on file ??? Smokeless tobacco: Not on file ??? Alcohol Use: 5.0 oz/week 1 Glasses of wine per week occas Family History: Family History Problem Relation Age of Onset ??? Breast Cancer Mother ??? Colon Cancer Neg Hx ??? Colon Polyps Neg Hx ??? Endometrial Cancer Neg Hx ??? Esophageal Cancer Neg Hx ??? Ovarian Cancer Neg Hx ??? Pancreatic Cancer Neg Hx ??? Rectal Cancer Neg Hx ??? Stomach Cancer Neg Hx Review of Systems as pertinent: Physical Exam Vital Signs: BP 109/79 Temp(Src) 36 ??C (96.8 ??F) (Tympanic) Resp 17 Ht 162.6 cm (64) Wt 61.236 kg (135 lb) BMI 23.17 kg/m2 SpO2 97% Heart Examination: Cardiac Regularity: Regular Respiratory Examination: Respiratory Pattern: Regular Breath Sounds Right: Clear Breath Sounds Left: Clear Additional physical exam related to the proposed procedure, patient activity, disease state and treatment as pertinent: Assessment Previous complications with sedation or anesthesia?: No Airway Concerns: None Anesthesia Classification: ASA 2 Fasting Time: Time of last liquid intake: 0500 Date of Last Liquid Intake: 09/28/11 Time of last solid intake: 1900 Date of last solid intake: 09/26/11 Patient Appropriate Candidate for Planned Sedation?: Yes documented in this encounter Procedure Notes Farmworker Grain, Scan - 09/29/2011 0801 ESTAssociated Order(s): PROCEDURE REPORTS - SCANNED documented in this encounter Miscellaneous Notes Scanned Note-Null - Farmworker [employer], Scan - 09/29/2011 1324 EST canned Note- Null - Farmworker [employer], Scan - 09/29/2011 1324 EST documented in this encounter Plan of Treatment Upcoming Encounters Date Type Specialty Care Team Description 07/19/2022 Office Visit Ophthalmology Scout Ocasio MD [address] [place] [phone] (Wo rk) 09/15/2022 Telemedicine Pelvic Medicine Kelley Morris MD [address] [place] [address] Medical Office Building, [address] [place], [place] [phone] (Wo rk) documented as of this encounter Procedures Procedure Name Priority Date/Time Associated Diagnosis Comme nts PROCEDURE REPORTS - 09/29/2011 8:01 EST R esults for this SCANNED procedure are i n the results section. documented in this encounter Results PROCEDURE REPORTS - SCANNED (09/29/2011 8:01 EST) Specimen Narrative This result has an attachment that is no t available. Transcriptions [employer]worker [employer], Scan - 09/29/2011 8:01 ES T documented in this encounter Visit Diagnoses Not on filedocumented in this encounter Administered Medications Inactive Administered Medications - up to 3 most recent administrations Medication Order MAR Action Action Date Dose Rate Site meperidine (PF) (DEMEROL) 100 mg/mL Given 09/28/2011 9:38 EST 75 mg injection 25-200 mg 25-200 mg, intravenous, ONCE PRN, 1 dose, Starting on Mon09/28/11 at 0938, Until Mon09/28/11 at 0938, Other, sedation, Routine, Intraprocedure midazolam (VERSED) injection 1-10 mg Given 09/28/2011 9:39 EST 2 mg 1-10 mg, intravenous, ONCE PRN, 1 dose, Starting on Mon09/28/11 at 0938, Until Mon09/28/11 at 0939, Sedation, Routine, Intraprocedure sodium chloride 0.9 % (NS) infusion New Bag 09/28/2011 9:11 EST 30 mL/hr 30 mL/hr at 30 mL/hr, 30 mL/hr, intravenous, CONTINUOUS, Starting on Mon09/28/11 at 1000, Until Mon09/28/11 at 1258, Routine, Preprocedure documented in this encounter Historical Medications This list may reflect changes made after this encounter. Medication Sig Dispensed Refills Start Date End Date calcium gluconate 500 mg Take 500 mg by mouth 0 tablet daily. cholecalciferol, Vitamin Take 1,000 Units by 0 D3, 1,000 unit tablet mouth daily. GRAPE SEED EXTRACT ORAL Take by mouth. 0 10/26/2021 aspirin chewable 81 mg Take 81 mg by mouth 0 10/26/2021 tablet daily. added in this encounter Orders Admission Count Last Ordered Date First Ordered Date NOTIFY PPS OF DISCHARGE COMPLETE 1 09/28/2011 Discharge Count Last Ordered Date First Ordered Date DISCHARGE PATIENT 09/28/2011 documented in this encounter
--- OUTSIDE RECORDS SUMMARY | 2022-04-01 00:48 | XMS_ITS | Encounter Summary ---
:1945 Author Organization [facility] Address [address] [place] [address] Care Team Providers Name Role Phone Albina Canales MD Primary Care Provider Encounter Details Date Type Department Care Team Description 06/07/2020 Lab Requisition [facility] Outr Resulting Lab, Pathology & Laboratory Provider [facility] [address] [place], [place] [address] Social History Tobacco Use Types Packs/Day Years [...] Office Visit Ophthalmology Scout Ocasio MD [address] [place] [phone] (Lavelle rk) 09/15/2022 Telemedicine Pelvic Medicine Kelley Morris MD [address] [place] [address], Medical Office Building, [address] [place], [place] [phone] (Lavelle rk) documented as of this encounter Procedures Procedure Name Priority Date/Time Associated Diagnosis Comme nts LYME AB Routine 06/07/2020 8:13 EDT Results for this procedure are i n the results section . documented in this encounter Results LYME AB (06/07/2020 8:13 EDT) Pathologist Sig nature Lyme Ab NegativeComment: New Negative [facility] 3rd generation assay LABORATORY SERVICES in use 02/26/2020 Specimen Blood - Venous blood (substance) Performing Organization Address City/State/[facility] Code Phon e Number [facility] [address] [place] [address] SERVICES documented in this encounter Visit Diagnoses Not on filedocumented in this encounter Care Teams Environmental Analyst Relationship Specialty Start Date End Date Albina Canales MD PCP - General 06/22/[address] [place] [phone] documented as of this encounter
--- OUTSIDE RECORDS SUMMARY | 2022-04-01 00:48 | XMS_ITS | Encounter Summary ---
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 cream estradioL (ESTRACE) 0.01 Place 1 g vaginally 42.5 g 1 04/28/2021 % (0.1 mg/gram) vaginal twice a week. cream documented in this encounter Miscellaneous Notes Telephone Encounter - Dina Hall RN - 04/28/2021 0849 EDT Medication Refill Request Patient Request Medication/Dose/Route/Frequency: estradiol Pt completely out: ?? Last office visit: 08/2020 Pending visit: No to f/u in 1 year around 08/2021 If appointment needed-message left/appointment made: LM for pt to call to make 1 year f/u appt Pharmacy confirmed:yes Amount filled/# of refills: 1 fill w/ 1 refill elephone Encounter - Vivian Cancino RN - 04/27/2021 4658 EDT Requesting refill of estradiol cream be sent to [facility] pharmacy- number is [phone] signed by Vivian Cancino RN at 04/27/2021 13:59 EDTdocumented in this encounter Plan of Treatment Upcoming Encounters Date Type Specialty Care Team Description 07/19/2022 Office Visit Ophthalmology Scout Ocasio MD [address] [place] [phone] (Wo rk) 09/15/2022 Telemedicine Pelvic Medicine Kelley Morris MD [address] [place] [address] Medical Office Building, [address] [place], [place] [phone] (Wo rk) documented as of this encounter Visit Diagnoses Not on filedocumented in this encounter Discontinued Medications Medication Sig Discontinue Reason Start Date End Date estradioL (ESTRACE) Place 1 g vaginally Reorder 12/24/2020 0 04/27/2021 0.01 % (0.1 mg/gram) twice a week. vaginal cream estradioL (ESTRACE) Place 1 g vaginally Reorder 04/29/2021 0 04/28/2021 0.01 % (0.1 mg/gram) twice a week. vaginal cream documented as of this encounter
--- OUTSIDE RECORDS SUMMARY | 2022-04-01 00:48 | XMS_ITS | Encounter Summary ---
:1945 Author Organization [facility] Address [address] [place] [address] Care Team Providers Name Role Phone Unavailable Primary Care Provider Unavailable Reason for Visit Reason Comments Pelvic Organ Prolapse Referral (Routine) - Authorization Not Required Specialty Diagnoses / Procedures Referred By Contact Refer red To Contact Pelvic Medicine Diagnoses Cystocele, unspecified Harmony Matute MD [facility] Pelvic Medicine [address] [place] [address] [place] [address] [place] [address] [place] [address] Phone: Fax: Referral ID Status Reason Start Expiration Visits Visits Date Date Requested Authorized [id number] Authorization Not 1 1 Required Encounter Details Date Type Department Care Team Description 02/27/2020 Telemedicine [facility] Kelley Morris genital Pelvic Medicine and MD Víctor prolapse, Reconstructive Surgery - [address] [place] [address] pecified type Medical Office [facility] (Primary Dx) [place] [address] Medical Office [address] [place] [address] [facility] [phone] [place] [phone] Social History Tobacco Use Types Packs/Day Years [...] documented as of this encounter Progress Notes Kelley Morris MD - 02/27/2020 0845 EDT Urogynecology New Patient Consultation (Telemedicine) Due to the COVID-19 pandemic, today's visit was provided through telemedicine audio-visual conferencing: Consent: The concept of telemedicine?? has been described to the patient. Patient has been informed of the anticipated benefits and possible risks. Patient understands the information provided regarding telemedicine, has had the opportunity to ask questions about this information, and all questions have been answered to patient's satisfaction. Patient consents for the use of telemedicine in his/her medical care and authorizes the transmission of any relevant medical information to providers and their staffinvolved in patient's medical or mental health care. The location of the patient : Home The location of the provider: Remote Work Location The following people (and their respective roles) participated in today's encounter: Sherly Pagan, patient Kelley Morris MD, physician The audio-video application used to conduct the visit was Zoom. CC: Pelvic organ prolapse HPI: Sherly Pagan is a 74 y.o. P3 postmenopausal woman referred by Harmony Matute MD for consultation, evaluation, and treatment recommendations regarding pelvic organ prolapse. The patient first noticed prolapse 01/2020 at the time of a UTI. She was able to reduce it manually and voided more fully, thus believes she may not be fully emptying her bladder. At maximum it was thesize of a ping pong ball outside of the vagina. Symptoms worse with exercise and lifting heavy objects. She can actually feel two bulges, one in front of and one behind the urethra. Inserted a plastictube within the vagina to substitute as a pessary, which worked for a short time. S/p hysterectomy TVH/BSO age 48 for prolapse. She treated her UTI empirically with Keflex that she had at home. She does feel the prolapse is less pronounced now that the UTI seems to have been treated. No incontinence symptoms. No bowel symptoms, typically no diarrhea or constipation. Review of Systems A 14 point review of systems was obtained and was negative except as noted. Constitutional: Negative. Skin: Negative. HENT: Negative. Eyes: Negative. Cardiovascular: Negative. Respiratory: Negative. Gastrointestinal: GERD. Genitourinary: See HPI. Musculoskeletal: Negative. Endo/Heme/Allergies: Negative. Neurological: Negative. Psychiatric: Negative. PMH PSH Past Medical History: Diagnosis Date ??? GERD (gastroesophageal reflux disease) Past Surgical History: Procedure Laterality Date ??? ANTERIOR CRUCIATE LIGAMENT REPAIR Right 1984 ??? CHOLECYSTECTOMY, LAPAROSCOPIC ??? HIP FRACTURE SURGERY Right 2016 ??? HIP FRACTURE SURGERY Left 2014 ??? HYSTERECTOMY 1993 TVH/BSO for prolapse Social History Family History Social History Tobacco Use ??? Smoking status: Never Smoker ??? Smokeless tobacco: Never Used Substance Use Topics ??? Alcohol use: Yes Alcohol/week: 1.0 standard drinks Types: 1 Glasses of wine per week Frequency: Monthly or less Comment: rare Family History Problem Relation Age of Onset ??? Brain Cancer Brother glioblastoma ??? Breast Cancer Mother ??? Dementia Mother ??? Diabetes Father age 99 ??? Arthritis Father ??? Colon Cancer Neg Hx ??? Colon Polyps Neg Hx ??? Endometrial Cancer Neg Hx ??? Esophageal Cancer Neg Hx ??? Ovarian Cancer Neg Hx ??? Pancreatic Cancer Neg Hx ??? Rectal Cancer Neg Hx ??? Stomach Cancer Neg Hx POB/Stretcher Helper Hx: See HPI. P3, s/p forceps delivery x 1, x 2 (largest baby 9#, 15 oz.). Surgical menopause age 48. Medications Current Outpatient Medications: aspirin chewable 81 mg tablet calcium gluconate 500 mg tablet cholecalciferol, Vitamin D3, 1,000 unit tablet GRAPE SEED EXTRACT ORAL No current facility-administered medications for this visit. Allergies No Known Allergies Objective: Physical Exam There were no vitals taken for this visit. General Appearance: well-developed, normal body habitus Eyes: Extraocular movements intact. HENT: Normocephalic, atraumatic. Neuro/Psych: Normal orientation, mood and affect Remainder of exam deferred Impression & Plan: 74 y.o. P3 woman with pelvic organ prolapse. -Discussed etiologies and treatment options for prolapse. Diagrams reviewed via video. -We discussed that the next step will be to return to the office for an exam -We briefly discussed treatment options including a pessary trial versus surgery. I mentioned that there are either vaginal or laparoscopic reconstructive surgery options based on her level of prolapse, which we will determine after the exam. Overall, she would be happy with a pessary if appropriate because she would like to maintain her ability to be very physically active and lift heavy objects. Return to clinic for pelvic exam and possible pessary fitting or prn. I spent a total of 26 minutes with Sherly Pagan today and 24 minutes of that time was spent in counseling and coordination of care as described in the progress note. Kelley Morris MD 02/27/2020 documented in this encounter Plan of Treatment Upcoming Encounters Date Type Specialty Care Team Description 07/19/2022 Office Visit Ophthalmology Scout Ocasio MD [address] [place] [phone] (Wo rk) 09/15/2022 Telemedicine Pelvic Medicine Kelley Morris MD [address] [place] [address] Medical Office Building, [address] [place], [place] [phone] (Wo marlen) documented as of this encounter Visit Diagnoses Diagnosis Female genital prolapse, unspecified typ e - Primary documented in this encounter Discontinued Medications Medication Sig Discontinue Reason Start Date End Date Bpwkoqduo-DCT-Cxntmdsczjx Soln TAKE BY MOUTH 1 02/27/2020 (HALFLYTELY-BISACODYL BOWEL KIT) 10-210 mg-gram KitIndications: Screening for colon cancer documented as of this encounter
--- OUTSIDE RECORDS SUMMARY | 2022-04-01 00:48 | XMS_ITS | Encounter Summary ---
:1945 Author Organization [facility] Address [address] [place] [address] Care Team Providers Name Role Phone Unavailable Primary Care Provider Unavailable Encounter Details Date Type Department Care Team Description 05/27/2002 Results Only [facility] - Edward Roberts MD conversion [address] [place] [address] Social History Tobacco Use Types Packs/Day Years [...] Office Visit Ophthalmology Scout Ocasio MD [address] [place] [address] (Lavelle gee) 09/15/2022 Telemedicine Pelvic Medicine Kelley Morris MD [address] [place] [address], Medical Office Building, [address] [place], [place] [address] (Lavelle gee) documented as of this encounter Procedures Procedure Name Priority Date/Time Associated Diagnosis Comme nts CYTOPATHOLOGY Routine 05/27/2002 0:00 EDT Results for this procedure are i n the results section . documented in this encounter Results CYTOPATHOLOGY (05/27/2002 0:00 EDT) Pathology Report: CYTOPATHOLOGY REPORT [facility] Reports generated via electronic interface contain larry ginal data; however they are lacking the format of the original re port. Caution should be taken when reading/interpreting unfo rmatted reports. Name: ? SHERLY MONTERO ? Accession #: ? [id number] : ? 1945 (Age: 56) ??F ?Collect Date: ? 05/2002 Location: ? [facility] ? Receive Date : ? 05/29/2002 Provider: ?EDWARD NGUYEN MD Copy to: ? Specimen/Source: ?ThinPrep Pap Test, Cervix/ Endocervix Last Menstrual Period: ? Hormonal/Contraceptive Status: ? Yes: Evista only Other: ? Additional clinical information: Prolapse ? SPECIMEN ADEQUACY ? Satisfactory for Evaluation - assessment of transformation zone component not appl icable ( e.g. atrophy, vaginal sample, hysterectomy) GENERAL CATEGORIZATION ? Negative for Intraepithelial Lesion or Malignan cy ? Document reviewed and electronically signed by: ? ERLIN Chapman(ASCP) ? Report Date: ??05/30/2002 10:07 End of Report Specimen Performing Organization Address City/State/ZIP Code Phon e Number [facility] [address] [place] [address] SERVICES [facility] [address] [place] [address] documented in this encounter Visit Diagnoses Not on filedocumented in this encounter
== END ==
PROVIDERS: Visit Provider Physician Assistant Medical
DX: M79.661 Pain in right lower leg (principal)
CPT/HCPCS: 93971

== ENCOUNTER 2022-04-06 14:49 | Outpatient (REF) | payer MEDICARE, OTHER, SELFPAY ==
[2022-04-06 19:09] LABS: Creatine Kinase 110 U/L (26-192)
[2022-04-06 19:11] LABS: C-Reactive Protein < 0.05 mg/dL (0.0-0.3)
== END 2022-04-06 14:50 | disposition home or self-care (01) ==
LOC: NCHCN 14:49
PROVIDERS: Visit Provider Family Medicine
DX: M79.604 Pain in right leg (principal); M79.605 Pain in left leg
CPT/HCPCS: 82550; 86140

== ENCOUNTER → 2022-04-21 02:10 | Outpatient (CLI) | payer MEDICARE, OTHER, SELFPAY ==
--- NOTE | 2022-04-21 12:15 | DI.MRI_ITS ---
Exam(s) MR LUMBAR SPINE WO EXAM: MR LUMBAR SPINE WO CLINICAL HISTORY: BILATERAL LEG PAIN, M79.606, RADIATING DOWN POSTERIOR, WORSE LATER IN DAY. TECHNIQUE: Multiplanar multisequence MRI of the Lumbar spine was performed. COMPARISON: None FINDINGS: Bones: There is a transitional type vertebral body at the lumbosacral junction with a rudimentary dis c at S1-2.. The vertebral body heights are well maintained. Alignment is satisfactory. The marrow si gnal characteristics are unremarkable. Cord: The conus tip ends at the L1 level. It is of normal size and signal intensity. No disc herniation is seen at any level. There is mild concentric disc bulging at L 5 S1. There are facet degenerative changes causing mild c entral canal stenosis. There is no significant neural foraminal narrowing. At L4-5, there is mild concentric disc bulging. There are prominent facet degenerative changes creat ing moderate central canal stenosis and mild neural foraminal encroachment. At L3-4, there is mild disc bulging. There are facet degenerative changes encroaching upon the later al aspects of the central canal, producing lhua-vy-tthqdoyv central canal stenosis. At L2-3, there is mild disc bulging. There is no significant central canal stenosis. At L1-2, there is minimal disc bulging. No central canal stenosis or neural foraminal narrowing. There are endplate osteophytes at T12-L1 the mild disc bulging.. Soft tissues: 5.5 centimeter cyst upper pole right kidney. IMPRESSION: No evidence of disc herniation. degenerative changes cause hrlk-pu-[id number] central canal stenosis at L3-4 and L4-5. Mild central canal stenosis at L5-S1. DATA REPOSITORY:
== END ==
PROVIDERS: PCP Family Medicine; Visit Provider Family Medicine
DX: M48.07 Spinal stenosis, lumbosacral region (principal); M48.061 Spinal stenosis, lumbar region without neurogenic claudication; M47.816 Spondylosis without myelopathy or radiculopathy, lumbar region
CPT/HCPCS: 72148

== ENCOUNTER 2022-05-27 11:01 | Outpatient (CLI) | payer MEDICARE, OTHER, SELFPAY ==
--- NOTE | 2022-05-27 10:15 | DI.RAD_ITS ---
Exam(s) XR HIP RT 1V XR HIP LT COMPLETE AP PELVIS EXAM: XR HIP LT COMPLETE AP PELVIS and XR hip RT 1 V CLINICAL HISTORY: bilateral hip pain. TECHNIQUE: 2D digital imaging was performed. Three images were obtained. AP and lateral views were obtained. COMPARISON: CR RT HIP COMPLETE AP PELVIS from 10/20/2017 CR XR HIP RT 1V from 05/27/2022 FINDINGS: BONES: There are stable post operative changes present. No new fracture or dislocation. JOINTS: There are moderate degenerative changes of the right hip which have advanced compared to the prior examination from 2018. Joint space narrowing and periarticular spurring is seen. Moderately sev ere degenerative changes are seen in the left hip which have also advanced since the prior examinatio n. There is joint space narrowing, subchondral sclerosis/cysts and periarticular spurring present. No joint effusion is present. SOFT TISSUE: Normal. IMPRESSION: Worsened degenerative changes of the hips since 2018, left greater than right. DATA REPOSITORY: RADIATION DOSE DELIVERED:
== END 2022-05-27 11:02 | disposition home or self-care (01) ==
LOC: DIORS 11:01
PROVIDERS: PCP Family Medicine; Referring Provider Family Medicine; Visit Provider Physician Assistant
DX: M25.551 Pain in right hip (principal); M25.552 Pain in left hip
CPT/HCPCS: 99215; 73501; 73502

== ENCOUNTER 2022-07-04 03:11 | Outpatient (CLI) | payer MEDICARE, OTHER, SELFPAY ==
[2022-07-04 08:49] LABS: HCT 38.9 % (36.0-46.0); HGB 13.6 g/dL (11.2-15.7); MCH 31.3 pg (27.0-33.0); MCV 89 fL (80-95); MPV 10.1 fL (8.0-11.0); Platelet Count 247 10^3/uL (130-400); RBC 4.35 10^6/uL (3.93-5.22); RDW-SD 43.1 fL; WBC 6.19 10^3/uL (4.4-10.8)
[2022-07-04 09:10] LABS: Anion Gap 5.4 mmol/L (3-11); BUN 23 mg/dL (7-18); CO2 30.6 mmol/L (21.0-32.0); CREATININE 0.8 mg/dL (0.55-1.02); Calcium 9.6 mg/dL (8.5-10.1); Chloride 102 mmol/L (98-107); Estimated GFR 75.37 (mL/min/1.73m2); Glucose 75 mg/dL (74-106); Potassium 4.2 mmol/L (3.5-5.1); Sodium 138 mmol/L (136-145)
== END 2022-07-04 03:12 | disposition home or self-care (01) ==
LOC: LBO 03:11
PROVIDERS: PCP Family Medicine; Visit Provider Student in an Organized Health Care Education/Training Program
DX: M16.12 Unilateral primary osteoarthritis, left hip (principal); Z01.818 Encounter for other preprocedural examination
CPT/HCPCS: 36415; 80048; 85027

== ENCOUNTER 2022-07-12 05:58 | Day surgery (SDC) | payer MEDICARE, OTHER, SELFPAY ==
[2022-07-12 06:23] VITALS: BP 119/72; PULSE 85; RESP 18; TEMP 36.5; O2SAT 97
[2022-07-12] MEDS: Acetaminophen 500 MG TAB 1000 MG PO (06:36)
[2022-07-12] MEDS: Celecoxib 200 MG CAP 400 MG PO (06:36)
[2022-07-12] MEDS: Lactated Ringers 1,000 ML 80 ML IV (06:45)
--- NOTE | 2022-07-12 06:53 | W.ANESPRE ---
General Info Date of Service Date Performed: 07/12/22 Height: 5 ft 3.75 in Weight: 57.2 kg Body Mass Index (BMI): 21.8 Surgical Procedure: Operation Date: 07/12/22 07:50 Proposed Procedure Side Surgeon p Hip Total Hip Anterior Left Jon Bender MD s Hip Hardware Removal (2 screws) Left Jon Bender MD Meds Allergies and Home Medications Allergies Allergy/AdvReac Type Severity Reaction Status Date / Time Sulfa (Sulfonamide Allergy Mild Skin Rash Verified 07/12/22 06:17 Antibiotics) Home Medication Medication Instructions Recorded cholecalciferol (vitamin D3) 25 1,000 unit PO DAILY 12/06/12 mcg (1,000 unit) tablet calcium carbonate 600 mg calcium 600 mg PO DAILY 07/25/14 (1,500 mg) tablet (Calcium) cod liver oil 118 ml PO DAILY 07/25/14 Lactobacillus acidophilus 10 1 ea PO DAILY 10/15/15 billion cell capsule (Probiotic) tumeric 1 cap PO BID 11/10/20 acetaminophen 500 mg tablet 1,000 mg PO TID #90 tabs 07/12/22 aspirin 81 mg tablet,delayed 81 mg PO BID #60 tabs 07/12/22 release celecoxib 200 mg capsule 200 mg PO BID #60 caps 07/12/22 dexamethasone 4 mg tablet 4 mg PO DAILY #2 tabs 07/12/22 (Decadron) oxycodone 5 mg tablet 5 mg PO Q4H PRN pain #20 tabs 07/12/22 pantoprazole 40 mg tablet,delayed 40 mg PO DAILY #30 tabs 07/12/22 release Current Visit Medications: Current Medications Generic Name Dose Route Start Last Admin Trade Name Freq PRN Reason Stop Dose Admin Acetaminophen 1,000 mg 07/12/22 06:00 07/12/22 06:36 Acetaminophen 500 Mg Tab PO 07/12/22 18:00 1,000 mg PREOP MONIKA Administration Celecoxib 400 mg 07/12/22 06:00 07/12/22 06:36 Celecoxib 200 Mg Cap PO 07/12/22 18:00 400 mg PREOP MONIKA Administration Tranexamic Acid 1,000 mg/ 60 mls @ 360 mls/hr 07/12/22 06:00 Sodium Chloride IV 07/12/22 18:00 PREOP MONIKA Ringer's Solution 1,000 mls @ 80 mls/hr 07/12/22 06:00 IV 08/10/22 23:59 INFUSION MONIKA Cefazolin Sodium/Dextrose 2 gm in 50 mls @ 100 mls/hr 07/12/22 06:00 Ancef Duplex IVPB 07/12/22 16:00 PREOP MONIKA IV Miscellaneous Supplies 1 each 07/12/22 06:00 Iv Access IV 08/10/22 23:59 DIRECTED MONIKA Sodium Chloride 0 ml 07/12/22 06:00 Normal Saline Flush 10 Ml Syr IV 08/10/22 23:59 PRN PRN Sodium Chloride 0 ml 07/12/22 06:00 Normal Saline 10 Ml Vial IJ 08/10/22 23:59 DIRECTED PRN Sterile Water 0 ml 07/12/22 06:00 Water,Injection,Sterile 10 Ml Vial IJ 08/10/22 23:59 DIRECTED PRN PFSH Active Problems Active Problems: Problem Status Onset Code Sjogrens syndrome M35.00 Disorder of salivary gland 06/26/12 K11.9 Localized primary osteoarthritis of lower leg 01/08/13 M17.10 Other malaise and fatigue 06/26/12 R53.81, R53.83 Sjogren's syndrome 01/08/13 M35.00 Tendinitis of left rotator cuff M75.82 Bilateral tinnitus 11/21/19 H93.13 Sensorineural hearing loss of combined sites, bilateral H90.3 Female bladder prolapse, acquired N81.10 Non-restorative sleep G47.8 Ventral hernia K43.9 Dysphagia R13.10 Sensorineural hearing loss, bilateral H90.3 Degenerative joint disease of left hip M16.12 Degenerative joint disease of right hip M16.11 Medical History Medical History (Updated 07/12/22 @ 06:20 by Lima Gonzalez) Fracture of femoral neck, left (11/16/14) Fracture, intertrochanteric, right femur History of COVID-19 2019 Hx of fracture of hip Hx of tear of ACL (anterior cruciate ligament) right Medical History Comments:: daughter has nausea with opoids Surgical History Surgical History (Updated 07/12/22 @ 06:21 by Lima Gonzalez) H/O surgical procedure a. hysterectomy b. ACL repair right knee Hx of cholecystectomy Hx of right knee surgery acl Oophrectomy, Both with hyst Vaginal hysterectomy 2001 for prolapse Tobacco Smoking/Tobacco Use Status: Never Alcohol Alcohol Intake: never Substance Use Substance use: Never Substance use type: does not use Vital Signs and Lab Results Vital Signs Most Recent Vital Signs in EMR: Most Recent Vital Signs Temp Pulse Resp BP Pulse Ox 36.5 C 85 18 119/72 97 07/12/22 06:23 07/12/22 06:23 07/12/22 06:23 07/12/22 06:23 07/12/22 06:23 Lab Results Blood Type / Crossmatch: No Data to Display Complete Blood Count: White Blood Count 6.19 10^3/uL (4.4-10.8) 07/04/22 08:40 Red Blood Count 4.35 10^6/uL (3.93-5.22) 07/04/22 08:40 Hemoglobin 13.6 g/dL (11.2-15.7) 07/04/22 08:40 Hematocrit 38.9 % (36.0-46.0) 07/04/22 08:40 Platelet Count 247 10^3/uL (130-400) 07/04/22 08:40 Complete Metabolic Panel: Sodium 138 mmol/L (136-145) 07/04/22 08:40 Potassium 4.2 mmol/L (3.5-5.1) 07/04/22 08:40 Chloride 102 mmol/L (98-107) 07/04/22 08:40 Carbon Dioxide 30.6 mmol/L (21.0-32.0) 07/04/22 08:40 BUN 23 mg/dL (7-18) H 07/04/22 08:40 Creatinine 0.8 mg/dL (0.55-1.02) 07/04/22 08:40 Est GFR (CKD-EPI 2020) 75.37 (mL/min/1.73m2) 07/04/22 08:40 Calcium 9.6 mg/dL (8.5-10.1) 07/04/22 08:40 Glucose 75 mg/dL (74-106) 07/04/22 08:40 Liver Function Panel: No Data to Display Coagulation Panel: No Data to Display Cardiac Panel: No Data to Display Arterial Blood Gas: No Data to Display Venous Blood Gas: No Data to Display Pancreas Panel: No Data to Display Thyroid Panel: No Data to Display Infectious Disease: No Data to Display Blood Cultures: No Data to Display Toxicology Panel: No Data to Display Anesthesia Assessment and Plan Anesthesia History Personal History: No History of Anesthesia Complications Family History: No Family History of Anesthesia Complications Exercise Tolerance Exercise Tolerance: Metabolic Equivalents>4 Pertinent Negatives Pertinent Negatives: No Symptoms of GERD, No Major Cardiovascular Symptoms or Complaints, No Major Pulmonary Symptoms or Complaints and No History of CVA/TIA Cardiac & Pulmonary Exam Cardiac Exam: Normal S1/S2 Heart Sounds Pulmonary Exam: Clear Bilateral Breath Sounds Implantable Cardiac Device Does patient have a Pacemaker or an ICD?: No Airway Exam Known Difficult Airway: No Mallampati Class: 2 Mouth Opening: Normal (> 3cm) Thyromental Distance: Greater than 3 cm Neck Range of Motion: Full ROM Neck Circumference: Normal Teeth Condition: Normal Dentition ASA Classification ASA Score: ASA 2 Emergency Case?: No NPO Status NPO Status: NPO Clears >2 hours, Solids >8 hours Anesthesia Plan Resuscitation Status: Full Code Anesthesia Technique: Spinal Anesthesia Airway Planned: Natural Airway Monitors Used: Standard Monitors Preoperative Comments:: Requesting to remain awake and watch unless she decides to go to sleep.
--- NOTE | 2022-07-12 07:27 | W.PM.DSUDISC ---
Date of service: 07/12/22 Time of Service: 07:27 Discharge Plan Disposition Patient Disposition: HOME Condition: Good Discharge Details Reason For Visit: L THR Attending Provider: Jon Bender Primary Care Provider: Albina Canales Home Meds and New Rx's Prescriptions: New celecoxib 200 mg capsule 200 mg PO BID Qty: 60 3RF aspirin 81 mg tablet,delayed release (DR/EC) 81 mg PO BID Qty: 60 0RF acetaminophen 500 mg tablet 1,000 mg PO TID Qty: 90 3RF pantoprazole 40 mg tablet,delayed release (DR/EC) 40 mg PO DAILY Qty: 30 0RF dexamethasone [Decadron] 4 mg tablet 4 mg PO DAILY Qty: 2 0RF oxycodone 5 mg tablet 5 mg PO Q4H MDD 6 tabs PRN (Reason: pain) Qty: 20 0RF Continued tumeric 1 cap PO BID cholecalciferol (vitamin D3) 1,000 UNIT tablet 1,000 unit PO DAILY calcium carbonate [Calcium 600] 600 MG tablet 600 mg PO DAILY cod liver oil 118 ML oil 118 ml PO DAILY Probiotic 1 EACH capsule 1 ea PO DAILY Discontinued ibuprofen [Advil] 200 mg tablet 400 mg PO BID PRN acetaminophen [Mapap Extra Strength] 500 MG tablet 1,000 mg PO TID PRN PRNQty: 0 0RF Discharge Instructions Additional Instructions: Total Hip Discharge Instructions Activity: The most important activity is to walk. You should try to take short walks a few times a day. You have no restrictions on movement or positioning, but do not try to force what you do. You will find some stiffness and weakness with hip flexion (lifting your knee). Do not try to strengthen this too early, continue to practice walking and stairs and this will come. - Outpatient physical therapy can be helpful to help return you to a normal gait and improve your flexibility and strength. This can start around 2 weeks. For some patients, it?s not necessary. Usually this is determined at the time of discharge or at the first post-operative visit. - You should wear the LAW hose on both legs for 2 weeks. Dressing: Keep the surgical dressing in place for at least one week. After the first week it may be removed and replace with light gauze and tape or nothing. It may get wet after 3 days but avoid soaking the dressing. If it gets wet, just lightly pat dry. It is important to always keep some gauze between skin folds, especially when you are sitting. Spend some time with the wound exposed when you are lying flat as the incision does wrinkle onto itself. Medications: - You should take Tylenol and an anti-inflammatory Celebrex as your primary pain control medications. If the Celebrex is too expensive or not covered, please call the office for another alternative (Advil/Ibuprofen or Naproxen/Aleve). - You have been prescribed a stronger pain medication Oxycodone for breakthrough pain, take as needed as prescribed. - You have also been prescribed a stomach acid reduction agent Pantoprozole to help reduce stomach acid and reflux. - You have also been prescribed Decadron to help with post-operative nausea and pain. You will take this for two days starting tomorrow. - You will be taking Aspirin 81mg twice a day for DVT prevention unless instructed otherwise. - If you have constipation you should take Colace or Miralax (both [id number]). It takes most people 3-4 days to have a bowel movement. Follow-up: 2 weeks If you have any acute concerns or questions, please do not hesitate to contact the office at [phone]. You may contact Dr. Bender with any questions after hours through the hospital at [phone] or on his cell phone at [phone]. Referrals: Jon Bender MD [ [facility] STAFF PHYSICIAN] - Equipment/Supplies: Walker Activity:: Activity as Tolerated Remove Dressings/Wound Care:: Do Not Remove Shower/Bathe:: 72 hours Diet:: As Tolerated Discharge Orders Discharge Orders: Discharge Order (Routine); Ordered 07/12/22 Ordered By: Jon Bender
[2022-07-12 07:29] VITALS: BMI 21.8
[2022-07-12] MEDS: ceFAZolin 2 GM/50 ML BAG IVPB (07:49)
--- NOTE | 2022-07-12 08:49 | DI.RAD_ITS ---
Exam(s) XR HIP LT IN OR EXAM: XR HIP LT IN OR CLINICAL HISTORY: DJD LEFT HIP. TECHNIQUE: 2D digital imaging was performed. COMPARISON: No exams were available for comparison FINDINGS: Fluoroscopy provided during orthopedic surgery left hip. See procedure report for details. Total cumulative dose 4.6626mGy IMPRESSION: DATA REPOSITORY: RADIATION DOSE DELIVERED:
[2022-07-12 09:18] VITALS: BP 112/56; PULSE 70; RESP 18; TEMP 36.3; O2SAT 97
[2022-07-12 09:41] VITALS: BP 111/61; PULSE 84; RESP 20; TEMP 36.4; O2SAT 97
--- NOTE | 2022-07-12 10:31 | PT.INIE ---
Date of service: 07/12/22 Time of Service: 10:31 PT Notes Visit Reasons: L THR Physical Therapy Day Surgery Initial Evaluation Date: 07/12/2022 Referring Doctor: OMKAR Kellogg PT Orders: PT CONSULT: S/p Ortho surgery WBAT on left LE with AD. Precautions: Patient Profile/Admitting Diagnosis: Sherly is a 76-year-old female with degenerative joint disease of the left hip and is status post left total hip arthroplasty on postoperative day 0. PMHX: Medical History? Fracture of femoral neck, left (11/16/14) Fracture, intertrochanteric, right femur Surgical History? H/O surgical procedure a.? hysterectomy b.? ACL repair right kne eOophrectomy, Both with hystVaginal hysterectomy 2001 for prolapse Social History/Home Situation: Lives with in a private home with a half step to enter. Independent with all aspects of ADLs prior to surgery. Equipment Owned/DME: [facility], [facility] Subjective: Agreeable to PT consult. Complained of a cramping sensation in bilateral calves that resolved with weight bearing. Objective: General Observation: Supine in stretcher. TEDs to B legs. Mepilex Ag over surgical incision. Mental Status: Alert and oriented x4 Pain: -10/2009 in the left hip ROM: Right Lower Extremity: Hip flexion WFL. Hip abduction WFL. Knee flexion WFL. Ankle dorsiflexion WFL. Ankle plantarflexion WFL. Left Lower Extremity: Hip flexion WFL. Hip abduction WFL. Knee flexion WFL. Ankle dorsiflexion WFL. Ankle plantarflexion WFL. Strength: Right Lower Extremity: Hip flexors 5/5. Hip abductors 5/5. Knee flexors 5/5. Knee extensors 5/5. Ankle dorsiflexors 5/5. Ankle plantarflexors 5/5. Left Lower Extremity:Hip flexors 4/5. Hip abductors 4/5. Knee flexors 5/5. Knee extensors 4/5. Ankle dorsiflexors 5/5. Ankle plantarflexors 5/5. Sensation: Pain and light pressure in bilateral lower extremities Bed Mobility/Transfers: Supine to sit supervision Sit to stand standby assist Stand to sit standby assist Bed to chair standby assist Gait: 150 feet using front wheeled walker with step through heel?toe gait pattern using front wheeled walker with standby assist. Cramping in bilateral calves resolved. Denies headache, chest pain, and lightheadedness throughout activity. Balance: Static Sitting: Normal Dynamic Sitting: Normal Static Standing: Fair Dynamic Standing: Fair Special Tests: Mobility Limitations Standardized Measure [facility] 6 clicks Basic Mobility Inpatient Short Form: Raw Score: 24 CMS Score: 0% deficit Informed Consent/Education: Patient instructed in purpose of PT consult. Education and training on initial set of exercises that can be done at home have been completed with patient. Assessment: Sherly requires the use of a front wheel walker for all mobility ADL performance to maximize independence and reduce fall risk. Patient presents with clinical signs and symptoms consistent with current/admitting diagnoses that have resulted to mobility limitations, gait instability, generalized weakness, and impairment of motor control as demonstrated by the following impairment level findings: 1. Decreased strength to left hip major muscle groups 2. Impaired standing balance Impairments are contributing to the following functional limitations: 1. Inability to safely ambulate without assistive device 2. Increase completion time for mobility ADL performance 3. Increased fall risk Patient is assessed as a 78799 moderate complexity based on the following: History: 76-year-old female with impairment level findings, functional limitations, and past medical history as indicated above Examination: Demonstrable impairment in strength, balance, and mobility level with underlying impairments and functional limitations as documented above Presentation: Evolving Decision Makin moderate complexity Goals: N/A. PT evaluation and 1-2 treatment sessions only for functional mobility training using recommended AD and for HEP instruction. Plan of Care/Treatment Plan: N/A. PT evaluation and 1-2 treatment session only for functional mobility training using recommended AD and for HEP instruction. DISCHARGE RECOMMENDATIONS: [] Home with no services [] [] Home with services [specify] [X] Home with outpatient PT. Home when medically cleared by orthopedic surgeon. Will benefit from outpatient PT services in order to optimize functional mobility outcomes and facilitate independent community ambulation without an assistive device. [] SNF for continued rehabilitation [] [] [facility] [] [] SNF versus LTC based on ability to participate and progress [] TREATMENT CODE/TIME: 07430 x 20 minutes, 58884 x 11 minutes beginning at 10:31 AM. Thank you for the opportunity to participate in the care of this patient. Thank you for the opportunity to participate in the care of this patient. Krista Ribeiro PT, DPT, CLT [facility] [place], [place]
--- NOTE | 2022-07-12 11:14 | W.ANESPOSTOP ---
Postoperative Evaluation Date, Time and Location Date Performed: 07/12/22 Time Performed: 11:14 Patient Location: Day Surgery Unit Vital Signs Most Recent Imported Vital Signs: Most Recent Vital Signs Temp Pulse Resp BP Pulse Ox 36.4 C L 84 20 111/61 97 07/12/22 09:41 07/12/22 09:41 07/12/22 09:41 07/12/22 09:41 07/12/22 09:41 Pain Score Most Recent Pain Score: Most Recent Pain Score Pain Level 1 07/12/22 09:41 Assessment Mental Status: Awake (Alert & Oriented to Patient Baseline) Airway and Respiratory Function: Patent airway with normal (patient baseline) respiratory exam Cardiovascular Function: Hemodynamically Stable Hydration Status: Adequately Hydrated Nausea & Vomiting: No Nausea or Vomiting Pain: Pain is tolerable per patient Peripheral Nerve Block: Patient did not receive a nerve block
[2022-07-12 11:15] VITALS: BP 98/61; PULSE 75; RESP 18; TEMP 36.4; O2SAT 97
--- NOTE | 2022-07-12 15:39 | W.PM.OP ---
Date of service: 07/12/22 Time of Service: 09:05 Operative Note Operative Note DATE OF PROCEDURE: 07/12/22 PRE-OP DIAGNOSIS: Left Hip Osteoarthritis, Retained Hip Hardware POST-OP DIAGNOSIS: same PROCEDURE: Left Hip Removal of Hardware and Anterior Total Hip Arthroplasty with Intraoperative Navigation SURGEON: Jon Bender PRODUCT ASSEMBLER: Neal Monsivais ANESTHESIA TYPE: Spinal Refer to Anesthesia Record ESTIMATED BLOOD LOSS: 400 PATHOLOGY: none sent TOURNIQUET TIME: 0 COMPLICATIONS: None Patient was transported to: PACU Patient's condition: stable Implants: 1. Depuy [place]ford Acetabular Component, 50mm 2. Depuy Acetabular Liner, [id number] 3. Depuy Corail Standard 125 degree Collared Femoral Stem, Size 13 4. Depuy Altrx Ceramic Femoral Head, Size 32+5mm Indications: I have seen Angela in clinic for symptoms of hip arthritis, confirmed with radiographic findings. She has exhausted nonoperative methods and was having significant limitations in daily function and desired better function and less pain. I discussed the technical details of a hip replacement. I explained the risks of the procedure to include, but not limited to, bleeding, infection, pain, stiffness, fracture, damage to nerves and vessels, damage to muscles and tendons, loosening, instability, leg length inequality, need for repeat procedure, blood clot and cardiopulmonary demise. Despite these risks, Sherly elected to proceed. Findings: The 2 cannulated screws were removed without significant difficulty. There was significant signs of arthritis throughout the hip with complete loss of superior femoral head cartilage and thinning of the superior acetabulum cartilage. Procedure Description: Angela was greeted in the preoperative holding area where the correct side was identified and marked. The consent was reviewed with the patient and signed. The history and physical was updated. All questions were answered. She was taken back to the operating room. A spinal anesthestic was then administered. The feet were wrapped with cast padding and Coban and then placed into the boot liners and then into the boots. Care was taken to protect the skin and make sure the heels were fully down and the boots were stable. The patient was then positioned onto the HANA table. Both legs were held in a neutral position. SCDs were applied. The patient was then slid down onto a peroneal post. Prophylactic antibiotics in the form of Cefazolin were administered. 1g of Tranxemic Acid was given intravenously within 30 minutes of incision. The left leg was then prepped with Chloraprep and draped in a standard fashion. A second prep with Chloraprep was performed prior to placement of a shower-curtain type drape with Iodine impregnated skin protection. A timeout to confirm correct identity, side and site, procedure, allergies, anesthesia, and medical concerns was performed. Began with removal of the 2 screws. These were cannulated 7.3 millimeter screws and the K wire from this cannulated system was utilized to percutaneously isolate the screw location. Once I cannulated the screw with the wire I then cut down onto the wire all the way to the femoral surface. I was able to remove the screws without difficulty although it did require assistance applying back pressure on the screws to get him through the lateral cortex. Her bone was quite dense and the screws had difficulty with cutting thread on the way out second screws also removed in a similar fashion from the previous hole. This area was then irrigated and attention was turned to the hip replacement. An obliquely oriented incision was made starting lateral to the ASIS and running distal over the Tensor Fascia Allegra (TFL) muscle belly toward the fibular head, approximately 10cm. The skin and soft tissue was dissected sharply, through Mckenzie?s fascia, and to the fascia of the TFL. With the fascia and superior border of the IT band identified, the fascia was incised with a new knife just above any perforators from the IT band. The TFL muscle belly was bluntly dissected away from the fascia and moved laterally. The fat between TFL and rectus was identified to ensure the dissection was not within the TFL. Blunt dissection created space between abductors and the capsule and retractor was placed over the lateral femoral neck. The fibers of the rectus femoris tendon were identified and these were freed from the anterior capsule. A second cobra retractor was placed around the medial femoral neck. The TFL was further retracted laterally to show the deep fascia. Careful dissection through this layer identified three main crossing vessels of the lateral femoral circumflex. These were cauterized in multiple locations and then cut without any noticeable bleeding. The TFL was further released bluntly from the deep fascia to expose anterior hip capsule and fat The [place] orthopaedic retractor was then placed beneath the TFL and against sartorius and medial soft tissues to protect and retract the soft tissues. A T-capsulotomy was then performed starting at the superior lateral acetabulum and moving distally to the intertrochanteric ridge. These capsular flaps were tagged with a No. 1 Ethibond and elevated from within. The capsular flaps were released to the shoulder of the lateral neck and to the lesser trochanter to give excellent visualization of the proximal femur. A neck osteotomy was performed using an oscillating saw based on preoperative templates. This cut started in the shoulder and of the lateral neck and exited medially. The saw was at all times directed medially to avoid injury to the greater trochanter. Gross traction was applied to the leg and the osteotomy opened. The femoral head was removed with a corkscrew, making sure to protect the TFL on its exit. Traction was released after head removal. This was measured on the back table to determine the starting reamer size. Portions of the rectus obscuring visualization were minimally elevated off the superior acetabulum. An anterior retractor was placed over the anterior wall between capsule and labrum and attached to the Gripper retraction system. The femur was rotated to 90 degrees and medial capsule was fully released until the lesser trochanter was palpable and visible; the femur was returned to 30 degrees. A posterior retractor was placed similarly between capsule and labrum. This provided excellent visualization. The contents of the cotyloid fossa were removed with electrocautery and the labrum was removed with a knife. There was a notable floor osteophyte. There was significant chondromalacia of the superior acetabulum. Acetabular reaming began with a 46mm reamer. This first reaming was directed anterior to posterior and medial to get down to the true floor. This was inspected and reamed until the true floor was reached. The anterior retractor was then released and entry and exit was provided by traction on the capsular flaps. I then reamed sequentially up to a 50mm reamer where good fit was obtained. The larger reamers were oriented based on anatomical reference of the anterior and lateral cedeño to ensure proper abduction and anteversion. Positioning and size was confirmed with the fluoroscopy. A 50mm Depuy [place] acetabular component was selected. The acetabulum was reamed around the periphery with the selected acetabular size to prevent a rim fit. The deep tissues were irrigated. The acetabular component was then impacted in a position of about 40-45 degrees of abduction and 15-20 degrees of anteversion, using the patient?s anatomy as the ultimate landmark. Fluoroscopy was used to confirm this. There was excellent er manager of the acetabular component and the inserting handle was removed. The acetabular liner, Depuy [id number] polyethylene liner, was inserted and lined up with the tines of the acetabular component. There was no soft tissue interposition. The liner was then impacted into position and confirmed to be well-seated. A portion of the rufina-articular cocktail was then injected around the acetabulum into the capsule and periosteum. This cocktail consisted of 123mg of Ropivacaine, 0.25mg of Epinephrine, 0.04mg of Clonidine, and 15mg of Ketorolac, diluted to 50cc. The leg was rotated to 120 degrees. Any remaining medial capsule was released until the lesser trochanter was easily palpable. A retractor was placed medially. The lateral capsule was further released into the shoulder to allow access to the greater trochanter. A Yip retractor was placed over the greater trochanter which allowed the trochanter to flip in front of the capsule for excellent exposure. The leg was brought down into maximal extension and 20 degrees of adduction while ensuring there was no impingement on the acetabulum. Any remnant capsule within the trochanter was released. Piriformis and obturator externis were identified and protected. There was excellent access to the proximal femur. The lateral neck remnant was removed with a rongeur. A blunt canal probe was used to identify the canal and trajectory for later broaching. A box osteotome initiated the broach course. A small curved rasp and a curved curette were used to work laterally. Broaching then began with a size 8 Corail broach. This was inserted manually around the trochanter and into the canal before mallet blows. The broach was seated to a few millimeters below the cut level based on the neck cut and the preoperative template. Sequential broaching was continued with the Kincise pneumatic broaching device until a tight fit was obtained with good rotational control of the femur. A trial standard 125 degree neck was inserted along with a +1 trial head. The leg was brought out of extension and adduction and then reduced with traction and internal rotation. The leg was stable anteriorly in a position of 30 degrees of extension and 90 degrees of external rotation. Fluoroscopy was used to ensure there was no fracture and the stem was seated well. Leg lengths were checked with an AP pelvis and pelvic reference points. [employer] navigation system was used to confirm appropriate positioning and leg length and offset. This slightly undercorrected the planned leg length and offset, but improved with the +5 head. Once content with the desired offset and leg lengths, the leg was brought back into extension, external rotation and adduction. The periosteum and surrounding tissue was injected with remaining portion of the rufina-articular cocktail. The proximal femur was irrigated as well as the deep tissues. The Depuy Corail standard 125 degree collared stem, size 13, was then manually inserted into the proximal femur making sure to control rotation. It was then malleted into position with light blows, giving breaks to allow bone expansion and decrease risk of fracture. The selected Depuy Altrx Ceramic Head, size 32+5mm, was then placed onto the clean and dry trunnion and secured with impaction onto the tapered fit. The leg was brought back out of extension and adduction and reduced with traction and internal rotation. Stability was confirmed with no shuck at 90 degrees of external rotation and 30 degrees of extension. No impingement through range of motion arc. Final x-ray images were obtained with fluoroscopy to confirm adequate positioning and no intraoperative fracture. The deep tissues were thoroughly irrigated with Surgiphor, betadine solution. This was allowed to sit in the wound for 3 minutes before being thoroughly irrigated out with normal saline. The capsule was then reapproximated with the previously placed Ethibond sutures. The TFL fascia was finally closed with a No. 2 Stratafix, barbed suture. Deep tissues were then reapproximated with 0 Vicryl and a running 2-0 Vicryl. The skin was closed with a running 4-0 Monocryl in a subcuticular fashion. This was reinforced with skin glue. A Mepilex silver dressing was applied. At the end of the case, all counts were correct. Angela was transferred to the hospital bed without difficulty and suffering no apparent complication. Angela has a good prognosis. Physical therapy will start today and without restrictions, weight-bearing as tolerated. Aspirin 81mg BID will be used for DVT prophylaxis.
== END 2022-07-12 12:29 | disposition home or self-care (01) ==
PROVIDERS: PCP Family Medicine; Visit Provider Student in an Organized Health Care Education/Training Program
PROC: (CPT 27130; principal; 2022-07-12 07:30)
PROC: (CPT 20985; 2022-07-12 07:30)
DX: M16.12 Unilateral primary osteoarthritis, left hip (principal); M35.00 Sjogren syndrome, unspecified; Z47.2 Encounter for removal of internal fixation device
CPT/HCPCS: 20985; 20680; 27130; C1776; 97162; 97530; 73501; J0690; J2405

== ENCOUNTER 2022-07-21 04:13 | Inpatient (IN) | payer MEDICARE, OTHER, SELFPAY ==
[2022-07-21] VITALS (44 sets, daily range): BP systolic 104–156; BP diastolic 57–77; PULSE 73–100; RESP 14–42; TEMP 36.5–38.1; O2SAT 84–98
--- NOTE | 2022-07-21 04:30 | DI.CT_ITS ---
Exam(s) CT ABDOMEN PELVIS W EXAM: CT ABDOMEN PELVIS W INDICATION: nausea vomiting. COMPARISON: CT CT CHEST PE CTA from 05/22/2020 TECHNIQUE: FINDINGS: CT examination of the abdomen and pelvis was performed with intravenous infusion of 90 cc of Omnipaqu e 350. Images obtained through the lung bases are unremarkable. The liver is unremarkable in appearance. Gallbladder has been surgically removed, bile ducts are CT normal. Pancreas appears normal. Spleen is unremarkable in appearance. Adrenals appear normal. The kidneys are unremarkable except for parapelvic cysts bilaterally and upper pole cyst on right wit h no evidence of hydronephrosis, nephrolithiasis, or renal mass.. Urinary bladder unremarkable. Abdominal aorta is of normal diameter and no major vascular abnormality is seen. No abdominal wall hernia. No abdominal or pelvic adenopathy. Uterus is atrophic or absent. Appendix is not specifically visualized period there is apparent small-bowel obstruction, transition point is not definitively identified but probably lies in the right lower quadrant and involves dista l small bowel. There is trace free fluid in the pelvis. Moderate quantity of fecal material in the colon. IMPRESSION: The appearance is consistent with small-bowel obstruction, with transition point probably in the righ t lower quadrant in the distal small bowel.. RADIATION DOSE DELIVERED: 765.94mGy.cm Total DLP 765.94mGy.cm Total DLP !Error CTDIvol RADIATION OPTIMIZATION: All CT scans at this facility use at least one of these dose optimization te chniques: automated exposure control; mA and/or kV adjustment per patient size (includes targeted exa ms where dose is matched to clinical indication); or iterative reconstruction.
--- NOTE | 2022-07-21 04:33 | ED.GENADUL_ITS ---
Discharge Plan Disposition Patient Disposition: [facility] INPATIENT Condition: Stable Discharge Details Chief Complaint: Nausea/Vomit/Diar Clinical Impression: Small bowel obstruction Primary Care Provider: Albina Canales ED Provider: Chuckie Quezada Home Meds and New Rx's Prescriptions: No Action tumeric capsule 1 cap PO BID cholecalciferol (vitamin D3) 1,000 UNIT tablet 1,000 unit PO DAILY calcium carbonate [Calcium 600] 600 MG tablet 600 mg PO DAILY cod liver oil 118 ML oil 118 ml PO DAILY Probiotic 1 EACH capsule 1 ea PO DAILY celecoxib 200 mg capsule 200 mg PO BID Qty: 60 3RF aspirin 81 mg tablet,delayed release (DR/EC) 81 mg PO BID Qty: 60 0RF acetaminophen 500 mg tablet 1,000 mg PO TID Qty: 90 3RF pantoprazole 40 mg tablet,delayed release (DR/EC) 40 mg PO DAILY Qty: 30 0RF Medical Decision Making 76-year-old female recent hip surgery, postop ileus, presents with nausea vomiting and abdominal discomfort over the past several hours, some mild abdominal distention, active bowel sounds, nonperitoneal however generalized discomfort. Patient took MiraLAX earlier today has been having normal bowel movements over the past several days. Hemodynamically stable nontachycardic normotensive afebrile. Consider enteritis versus colitis versus less consider bowel obstruction versus ileus. Will obtain basic lab imaging CT abdomen pelvis, IV fluid and Zofran close reassessment Evidence of small bowel obstruction on CT scan. NG tube placed at bedside. Patient to be kept n.p.o. admitted to surgical service. HPI General Date/Time Provider Initiated Documentation: 07/21/22 04:14 . HPI Narrative: 76-year-old female recent hip surgery, complicated by postop ileus, presents with nausea vomiting over the past several hours, history of prior cholecystectomy; took MiraLAX earlier today, has had formed normal bowel movements over the past several days. Endorses abdominal discomfort Related Data Home Medications Medication Instructions Recorded Confirmed cholecalciferol (vitamin D3) 25 1,000 unit PO DAILY 12/06/12 07/21/22 mcg (1,000 unit) tablet calcium carbonate 600 mg calcium 600 mg PO DAILY 07/25/14 07/21/22 (1,500 mg) tablet (Calcium) cod liver oil 118 ml PO DAILY 07/25/14 07/21/22 Lactobacillus acidophilus 10 1 ea PO DAILY 10/15/15 07/21/22 billion cell capsule (Probiotic) tumeric 1 cap PO BID 11/10/20 07/21/22 acetaminophen 500 mg tablet 1,000 mg PO TID #90 tabs 07/12/22 07/21/22 aspirin 81 mg tablet,delayed 81 mg PO BID #60 tabs 07/12/22 07/21/22 release celecoxib 200 mg capsule 200 mg PO BID #60 caps 07/12/22 07/21/22 pantoprazole 40 mg tablet,delayed 40 mg PO DAILY #30 tabs 07/12/22 07/21/22 release Previous Rx's Medication Instructions Recorded acetaminophen 500 mg tablet 1,000 mg PO TID #90 tabs 07/12/22 aspirin 81 mg tablet,delayed 81 mg PO BID #60 tabs 07/12/22 release celecoxib 200 mg capsule 200 mg PO BID #60 caps 07/12/22 pantoprazole 40 mg tablet,delayed 40 mg PO DAILY #30 tabs 07/12/22 release Allergies Allergy/AdvReac Type Severity Reaction Status Date / Time Sulfa (Sulfonamide Allergy Mild Skin Rash Verified 07/12/22 06:17 Antibiotics) General Stated Complaint: Nausea/Vomit/Diar KATEY: 3 Review of Systems Narrative: Review of Systems Constitutional: negative Eyes: negative ENT: negative Cardiovascular: negative Respiratory: negative Gastrointestinal: Abdominal pain, nausea vomiting : negative Musculoskeletal: negative Skin: negative Neurologic: negative Psych: negative PFSH All Active Problems (Updated 07/21/22 @ 07:58 by Chuckie Quezada MD) Sjogrens syndrome (Chronic) Disorder of salivary gland (Acute 06/26/12) Localized primary osteoarthritis of lower leg (Acute 01/08/13) R KNEE; H/O ACL SURG ; RX PT Other malaise and fatigue (Acute 06/26/12) Sjogren's syndrome (Acute 01/08/13) Tendinitis of left rotator cuff (Acute) Bilateral tinnitus (Acute 11/21/19) [place] Sensorineural hearing loss of combined sites, bilateral (Chronic) Female bladder prolapse, acquired (Acute) 02/27/20 [facility] Non-restorative sleep (Acute) Ventral hernia (Acute) Dysphagia (Acute) Sensorineural hearing loss, bilateral (Acute) Degenerative joint disease of left hip (Acute) Degenerative joint disease of right hip (Acute) Small bowel obstruction (Acute) Medical History (Updated 07/21/22 @ 07:58 by Chuckie Quezada MD) Fracture of femoral neck, left (11/16/14) Fracture, intertrochanteric, right femur History of COVID-2019 Hx of fracture of hip Hx of tear of ACL (anterior cruciate ligament) right Surgical History (Updated 07/12/22 @ 06:21 by Lima Gonzalez) H/O surgical procedure a. hysterectomy b. ACL repair right knee Hx of cholecystectomy Hx of right knee surgery acl Oophrectomy, Both with hyst Vaginal hysterectomy 2001 for prolapse Family History Mother , Alzheimers at age 89. Breast cancer Grandmother Colon cancer MGM Father No problems noted. 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 Working smoke detector in home: Yes Fire extinguisher in home: Yes Carbon monox detector in home: Yes Do you feel safe at home: Yes Do you feel safe in your relationship?: Yes Exam Narrative Exam Narrative: Physical Examination General: alert, awake, cooperative, resting comfortably, no acute distress HEENT: normocephalic, atraumatic; PERRL, EOM intact, conjunctiva normal; no nasal discharge; moist mucous membranes, oral and pharyngeal mucosa normal, tolerating secretions Neck: supple, trachea midline; full ROM Chest: normal to inspection Respiratory: normal respiratory effort, speaking in full sentences, clear to auscultation, no wheezing, rales or rhonchi Cardiac: regular rate, regular rhythm, S1S2 intact, no murmurs rubs or gallops GI: abdomen soft, mildly tender to examination without guarding or rebounding, slight distention, active bowel sounds Skin: no lesions, rashes or trauma appreciated Neuro: AAOx3, normal speech, moving all extremities Psych: Appropriate mood and affect Course Vital Signs Vital signs: Vital Signs Temperature 36.5 C 07/21/22 04:16 Pulse 82 07/21/22 04:16 Respiratory Rate 18 07/21/22 04:16 Blood Pressure 156/68 H 07/21/22 04:16 Pulse Oximetry 98 07/21/22 04:16 Temperature 36.5 C 07/21/22 04:16 Temperature Source Tympanic 07/21/22 04:16 Pulse 82 07/21/22 04:16 Respiratory Rate 18 07/21/22 04:16 Respiratory Effort 07/21/22 04:20 Blood Pressure 156/68 H 07/21/22 04:16 Blood Pressure Position Supine 07/21/22 04:16 Pulse Oximetry 98 07/21/22 04:16 Oxygen Delivery Method Room Air 07/21/22 04:16 Oxygen Flow Rate 0 07/21/22 04:16 Pain Level 0 07/21/22 04:16
[2022-07-21 04:37] LABS: Abs Immature Grans 0.08 10^3/uL (0.0-0.06); Absolute Basophil Count 0.03 10^3/uL (0.0-0.2); Absolute Eosinophil Count 0.03 10^3/uL (0.0-0.7); Absolute Lymphocyte Count 1.21 10^3/uL (1.2-3.4); Absolute Monocyte Count 0.57 10^3/uL (0.1-0.8); Absolute Neutrophil Count 8.01 10^3/uL (1.2-6.7); Basophils % 0.3; Eosinophils % 0.3; HCT 32.1 % (36.0-46.0); HGB 11.1 g/dL (11.2-15.7); Immature Grans % 0.8; Lymphocytes % 12.2; MCHC 34.6 % (32.0-36.0); MCV 90 fL (80-95); MPV 9.3 fL (8.0-11.0); Monocytes % 5.7; Neutrophils % 80.7; Platelet Count 374 10^3/uL (130-400); RBC 3.58 10^6/uL (3.93-5.22); RDW 12.9 % (11.7-14.6); RDW-SD 42.2 fL; WBC 9.93 10^3/uL (4.4-10.8)
[2022-07-21] MEDS: Ondansetron 4 MG/2 ML VIAL IVP ×3 (04:37→15:23)
[2022-07-21] MEDS: Normal Saline 1,000 ML 1000 ML IV (04:38)
[2022-07-21 04:56] LABS: ALT 29 U/L (14-59); AST 26 U/L (15-37); Albumin 3.3 g/dL (3.4-5.0); Alkaline Phosphatase 50 U/L (46-116); Anion Gap 10.6 mmol/L (3-11); BUN 14 mg/dL (7-18); Bilirubin, Total 0.7 mg/dL (0.2-1.0); CO2 23.4 mmol/L (21.0-32.0); CREATININE 0.7 mg/dL (0.55-1.02); Chloride 95 mmol/L (98-107); Estimated GFR 88.47 (mL/min/1.73m2); Glucose 144 mg/dL (74-106); Lipase 88 U/L (73-393); Potassium 3.4 mmol/L (3.5-5.1); Sodium 129 mmol/L (136-145); Total Protein 7.1 g/dL (6.4-8.2)
[2022-07-21] MEDS: Omnipaque 350 MG/ML 100 ML BTL IV (05:33)
[2022-07-21] MEDS: Normal Saline Flush 10 ML SYR IVP ×2 (05:42→15:24)
[2022-07-21] MEDS: MORPHine 4 MG/ML SYR 2 MG IVP (07:00)
--- NOTE | 2022-07-21 07:35 | DI.VRAD_ITS ---
Addendum created by Niles Tai MD on 07/21/2022 7:42:04 AM EDT: THIS REPORT CONTAINS FINDINGS THAT MAY BE CRITICAL TO PATIENT CARE. The findings were verbally communicated via telephone conference with Chuckie Chapman at 7:41 AM EDT on 07/21/2022. The findings were acknowledged and understood. Initial report created on 07/21/2022 7:35:30 AM EDT: PROCEDURE INFORMATION: Exam: CT Abdomen And Pelvis With Contrast Exam date and time: 07/21/2022 5:31 AM Age: 76 years old Clinical indication: Other: Nausea vomiting; Prior surgery; Surgery date: 6+ months; Surgery type: Gallbladder removed TECHNIQUE: Imaging protocol: Computed tomography of the abdomen and pelvis with contrast. Radiation optimization: All CT scans at this facility use at least one of these dose optimization techniques: automated exposure control; mA and/or kV adjustment per patient size (includes targeted exams where dose is matched to clinical indication); or iterative reconstruction. Contrast material: OMNIPAQUE 350; Contrast volume: 90 ml; Contrast route: INTRAVENOUS (IV); COMPARISON: CT PELVIC/LOWER ABD WITHOUT CONT 07/29/2017 5:15 PM FINDINGS: Lungs: Mild bilateral lower lobe bronchiectasis. Liver: The liver is normal in size and contour. Gallbladder and bile ducts: The gallbladder is surgically absent. Intra and extrahepatic biliary dilatation may be related to post cholecystectomy changes. Pancreas: The pancreas appears normal. Spleen: The spleen appears normal. Adrenal glands: The adrenals appear normal. Kidneys and ureters: Signs of urinary obstruction. Simple appearing cyst arising from the upper pole the right kidney. Stomach and bowel: Stomach appears unremarkable. Abnormal dilatation of the small bowel measuring up to 3.5 cm in diameter. The majority of the small bowel is abnormally distended and fluid-filled. Multiple air-fluid levels identified. Fecalization in the small bowel in the right lower quadrant. No definitive transition point identified in the distal small bowel. The large bowel loops are not abnormally dilated. Appendix: The appendix is not readily identified. Intraperitoneal space: Minimal free fluid in the dependent portion of the pelvis. Vasculature: Proximal left ovarian vein is enlarged measuring up to 12 mm in diameter. Prominent left pelvic veins measuring up to 9 mm in the lower pelvis/perirectal region. Lymph nodes: There are no enlarged lymph nodes. Urinary bladder: The bladder is distended and demonstrates no focal contour abnormality. Reproductive: The uterus appears surgically absent. Bones/joints: Multilevel facet arthropathy noted. Multilevel degenerative disc disease. Poorly and part visualized fluid collection extending along the anterior left margin of the proximal left thigh, possibly extending from the left hip joint measuring up to at least 7 cm in the craniocaudal dimension, and 4 x 2 cm in the axial plane (axial series 5, image [id number]). Additional small fluid collection measuring up to 2.7 cm in the axial plane (axial series 5, image [id number]) along the anterior proximal left thigh/pelvis. Left total hip arthroplasty noted. Proximal right femoral fixation hardware noted. Soft tissues: Small 1.3 cm fat containing left-sided inguinal hernia. IMPRESSION: 1. Findings concerning for small bowel obstruction. Although the transition point is not definitively identified, this is likely in the distal small bowel in the right lower quadrant. 2. Minimal free fluid in the pelvis. 3. Fluid collections along the lateral margin of the proximal left thigh possibly postsurgical seromas. Recommend clinical correlation. 4. Prominent left ovarian/pelvic veins, which can be seen in patients with pelvic venous insufficiency. Dictated and Authenticated by: Niles Tai MD. Ordering:VIDAL Noguera MD
[2022-07-21] MEDS: Lidocaine 2% Jelly 6 ML SYR (07:47)
--- NOTE | 2022-07-21 08:10 | DI.RAD_ITS ---
Exam(s) XR PORTABLE CHEST AP EXAM: XR PORTABLE CHEST AP CLINICAL HISTORY: NG tube placement TECHNIQUE: COMPARISON: CR,RF RF BARIUM SWALLOW from 07/09/2021 FINDINGS: There is an NG tube in position. Heart is not enlarged. Lungs are grossly clear. IMPRESSION: RADIATION DOSE DELIVERED: Total DLP
[2022-07-21 08:26] LABS: Source Nasal/Nares
[2022-07-21 09:03] LABS: COVID-19 PCR Negative (Negative)
[2022-07-21] MEDS: Normal Saline 1,000 ML 150 ML IV ×2 (10:57→20:18)
--- NOTE | 2022-07-21 11:13 | NUR.NOTE ---
documented for Mariajose Berumen RN 2 mg of morphine IV at 0700. Graciela Burger is aware
[2022-07-21] MEDS: ACETAMINOPHEN 1,000 MG/100 ML BTL 400 MG IVPB ×2 (11:46→20:18)
[2022-07-21] MEDS: Gastrografin 120 ML BTL PO (14:19)
[2022-07-21] MEDS: Ketorolac 15 MG/ML VIAL IVP (15:23)
--- NOTE | 2022-07-21 19:58 | DI.RAD_ITS ---
Exam(s) XR ABDOMEN FLAT PLATE EXAM: XR ABDOMEN FLAT PLATE CLINICAL HISTORY: gastrographin challgne for SBO. TECHNIQUE: 2D digital imaging was performed. COMPARISON: CR,RF RF BARIUM SWALLOW from 07/09/2021 FINDINGS: Single view: NG tube is in the stomach. There are dilated small bowel loops throughout the abdomen. Administered enteric contrast is seen in both left and right-sided small bowel loops but not in the c olon at this time. IMPRESSION: DATA REPOSITORY: RADIATION DOSE DELIVERED:
--- NOTE | 2022-07-21 20:01 | W.PM.HP.N ---
Date of service: 07/21/22 Time of Service: 11:30 Assessment and Plan Assessment and plan (1) Small bowel obstruction: Status: Acute Assessment and plan: I think she had a partial small bowel obstruction. She has a NGT in place already. Her exam is reassuring and there are no particular worrisome features on the CT scan. We can try a gastrografin challenge. History of Present Illness History of Present Illness Chief Complaint: Abdominal pain with nausea Narrative: Sherly is a 76 year old woman who underwent orthopedic surgery last week. She had some mild abdominal discomfort afterwards that improved. Yesterday she startred experienceing increasing pain, bloating and a feeling of a full abdomin. She tried to treat this with miralax and some over the counter medications. None helped. The pain increased and she experienced several episodes of vomiting this morning. She came to the ED. Her abdomen was a bit distended and tender. Labs were mostly normal. She underwent a CT scan of the abdomen and pelvis that raised the concern for partial small bowel obstruction. An NGT was placed and she was admitted. Review of Systems Constitutional Constitutional: Denies as per HPI, Denies fever(s) and Denies weakness Eyes Eyes: Reports system reviewed and no additional complaints, except as documented ENT Ears, Nose, Mouth, and Throat: Reports system reviewed and no additional complaints, except as documented Cardiovascular Cardiovascular: Reports system reviewed and no additional complaints, except as documented, Denies chest pain, Denies leg edema and Denies dyspnea Respiratory Respiratory: Denies chest congestion, Denies cough and Denies dyspnea Gastrointestinal Gastrointestinal: Reports abdominal pain, Reports bloating, Denies change in bowel habits, Denies diarrhea, Reports nausea and Reports vomiting Musculoskeletal Musculoskeletal: Reports system reviewed and no additional complaints, except as documented Neurologic Neurologic: Reports system reviewed and no additional complaints, except as documented and Denies weakness Endocrine Endocrine: Reports system reviewed and no additional complaints, except as documented Allergic/Immunologic Allergic/Immunologic: Reports GI upset with certain foods (sugar cookies) PFSH All Active Problems Sjogrens syndrome (Chronic) Disorder of salivary gland (Acute 06/26/12) Localized primary osteoarthritis of lower leg (Acute 01/08/13) R KNEE; H/O ACL SURG ; RX PT Other malaise and fatigue (Acute 06/26/12) Sjogren's syndrome (Acute 01/08/13) Tendinitis of left rotator cuff (Acute) Bilateral tinnitus (Acute 11/21/19) [place] Sensorineural hearing loss of combined sites, bilateral (Chronic) Female bladder prolapse, acquired (Acute) 02/27/20 [facility] Non-restorative sleep (Acute) Ventral hernia (Acute) Dysphagia (Acute) Sensorineural hearing loss, bilateral (Acute) Degenerative joint disease of left hip (Acute) Degenerative joint disease of right hip (Acute) Small bowel obstruction (Acute) Medical History Fracture of femoral neck, left (11/16/14) Fracture, intertrochanteric, right femur History of COVID-19 2019 Hx of fracture of hip Hx of tear of ACL (anterior cruciate ligament) right Surgical History H/O surgical procedure a. hysterectomy b. ACL repair right knee Hx of cholecystectomy Hx of right knee surgery acl Oophrectomy, Both with hyst Vaginal hysterectomy 2001 for prolapse Family History Mother , Alzheimers at age 89. Breast cancer Grandmother Colon cancer MGM Father No problems noted. 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 Working smoke detector in home: Yes Fire extinguisher in home: Yes Carbon monox detector in home: Yes Do you feel safe at home: Yes Do you feel safe in your relationship?: Yes Meds Allergies and Home Medications Allergies Allergy/AdvReac Type Severity Reaction Status Date / Time Sulfa (Sulfonamide Allergy Mild Skin Rash Verified 07/21/22 09:02 Antibiotics) Home Medications Medication Instructions Recorded Confirmed Type cholecalciferol (vitamin D3) 25 1,000 unit PO DAILY 12/06/12 07/21/22 History mcg (1,000 unit) tablet calcium carbonate 600 mg calcium 600 mg PO DAILY 07/25/14 07/21/22 History (1,500 mg) tablet (Calcium) cod liver oil 118 ml PO DAILY 07/25/14 07/21/22 History Lactobacillus acidophilus 10 1 ea PO DAILY 10/15/15 07/21/22 History billion cell capsule (Probiotic) tumeric 1 cap PO BID 11/10/20 07/21/22 History acetaminophen 500 mg tablet 1,000 mg PO TID #90 tabs 07/12/22 07/21/22 Rx aspirin 81 mg tablet,delayed 81 mg PO BID #60 tabs 07/12/22 07/21/22 Rx release celecoxib 200 mg capsule 200 mg PO BID #60 caps 07/12/22 07/21/22 Rx pantoprazole 40 mg tablet,delayed 40 mg PO DAILY #30 tabs 07/12/22 07/21/22 Rx release Exam Const General: cooperative, healthy appearing and comfortable Nutritional Appearance: thin Orientation: alert, awake and oriented x3 HENMT Head: normal to inspection Neck Neck: normal visual inspection, full ROM and no lymphadenopathy Chest Chest: normal inspection of the chest Resp Effort & Inspection: normal respiratory effort, able to speak in complete sentences and no respiratory distress Auscultation: clear to auscultation bilaterally Cardio Jugular venous pressure: no JVD Rate: regular rate Rhythm: regular rhythm Heart Sounds: S1 normal and S2 normal GI Inspection: normal to inspection, non-distended and scar Palpation: soft, no guarding, no hernias and nontender Percussion: tympanic to percussion Auscultation: hypoactive bowel sounds Back/Spine/Pelvis Cervical Spine: normal cervical lordosis Skin General skin exam: no rashes or lesions noted Neuro General: patient alert, patient awake and patient oriented x3 Cognition: normal cognition Speech: speech normal Extrem Right lower extremity: no edema Left lower extremity: no edema Psych Appearance: grossly normal Speech and Movement: speech and movement normal Mood: congruent mood Results Labs Result diagrams: 07/21/22 04:20 07/21/22 04:31 Labs: Laboratory Results - last 24 hr 07/21/22 07/21/22 07/21/22 04:20 04:31 08:20 WBC 9.93 RBC 3.58 L Hgb 11.1 L Hct 32.1 L MCV 90 MCH 31.0 MCHC 34.6 RDW 12.9 Plt Count 374 MPV 9.3 Immature Gran % 0.8 Neutrophils % 80.7 Lymphocytes % 12.2 Monocytes % 5.7 Eosinophils % 0.3 Basophils % 0.3 Nucleated RBC % 0.0 Absolute Neutrophils 8.01 H Absolute Lymphocytes 1.21 Absolute Monocytes 0.57 Absolute Eosinophils 0.03 Absolute Basophils 0.03 Sodium 129 L Potassium 3.4 L Chloride 95 L Carbon Dioxide 23.4 Anion Gap 10.6 BUN 14 Creatinine 0.7 Est GFR (CKD-EPI 2020) 88.47 Glucose 144 H Calcium 9.0 Total Bilirubin 0.7 AST 26 ALT 29 Alkaline Phosphatase 50 Total Protein 7.1 Albumin 3.3 L Lipase 88 COVID-19 Source Nasal/Nares SARS-CoV-2 (PCR) Negative Last Vital Signs Temp 100.4 F H 07/21/22 15:23 Pulse 98 H 07/21/22 15:13 Resp 18 07/21/22 15:13 BP 120/57 L 07/21/22 15:13 Pulse Ox 95 07/21/22 15:13
--- NOTE | 2022-07-21 20:17 | DI.VRAD_ITS ---
PROCEDURE INFORMATION: Exam: XR Abdomen Exam date and time: 07/21/2022 7:55 PM Age: 76 years old Clinical indication: Other: Gastrografin chalange sbo TECHNIQUE: Imaging protocol: Radiologic exam of the abdomen. Views: Frontal supine view of the abdomen. 1 View. COMPARISON: CT ABDOMEN PELVIS W 07/21/2022 5:31 AM FINDINGS: Tubes, catheters and devices: An NG tube is in the stomach. Gastrointestinal tract: AP view of the abdomen shows dilated proximal small bowel loops. Maximal diameter approximately 5 cm in the proximal jejunum. There is enteric contrast consistent with Gastrografin which extends to distal small bowel loops. Gastrografin has not yet entered the cecum. These findings are concerning for a high-grade partial or complete small bowel obstruction. Organs: Previous cholecystectomy. Urinary bladder contains enteric contrast from an earlier CT performed today. Bones/joints: Degenerative lumbar spine disease. Previous left hip replacement. Previous right hip fracture repair. IMPRESSION: 1. Dilated proximal small bowel with retention of ingested Gastrografin. Gastrografin extends to the distal small bowel in the right pelvis, but does not enter the cecum. Can not exclude a distal small bowel high-grade partial versus early complete obstruction. The timing of the x-ray relative to the Gastrografin instillation is not noted. 2. Degenerative skeletal features. 3. Contrast within the urinary bladder from prior CT. 4. NG tube in place. 5. Previous cholecystectomy. Dictated and Authenticated by: Jordan Ly MD. Ordering:GILBERTO Farley MD
[2022-07-21] MEDS: Aspirin 81 MG CHEW PO (20:19)
[2022-07-22] MEDS: ACETAMINOPHEN 1,000 MG/100 ML BTL 400 MG IVPB (03:42)
[2022-07-22 07:49] VITALS: BP 113/69; PULSE 92; RESP 18; TEMP 37.4; O2SAT 94
--- NOTE | 2022-07-22 08:07 | DI.RAD_ITS ---
Exam(s) XR ABDOMEN FLAT PLATE EXAM: XR ABDOMEN FLAT PLATE CLINICAL HISTORY: gastrografin challenge. TECHNIQUE: 2D digital imaging was performed. COMPARISON: CR,XR XR ABDOMEN FLAT PLATE from 07/21/[address] ABDOMEN PELVIS W from 07/21/2022 FINDINGS: AP supine view: The NG tube is been retracted to position above the stomach it should be advanced into the stomach. There is oral contrast in the right-side of the colon indicating that the small bowel obstruction is incomplete. Nevertheless, there are still dilated abnormal appearing small bowel loops consistent wi th bowel obstruction. Bilateral hip prostheses again noted. Contrast seen in the urinary bladder from prior CT scan. IMPRESSION: Persistent small-bowel obstruction although the presence of oral contrast in the right-side of the co wen implies that this is not a complete small bowel obstruction, despite persistence of large caliber air-filled small bowel loops. The NG tube should be advanced further into the stomach as it appears to have retracted when compared to the prior study DATA REPOSITORY: RADIATION DOSE DELIVERED:
[2022-07-22] MEDS: Aspirin 81 MG CHEW PO (09:13)
[2022-07-22] MEDS: Normal Saline 1,000 ML 150 ML IV (11:54)
--- NOTE | 2022-07-22 12:05 | W.PM.PROGNOT ---
Date of Service Date of service: 07/22/22 Time of Service: 07:00 Assessment and Plan Assessment and plan (1) Small bowel obstruction: Status: Acute Assessment and plan: Her x-ray from this morning is much more reassuring, with passage of contrast into the large intestine. She still has some dilated loops of small intestine, but they are less obvious than yesterday. Most importantly, her abdomen remains soft and nontender. I think we can clamp the nasogastric tube this morning, and give her a little bit of stuff to sip on. Hopefully she will remain asymptomatic, and we can work towards removal of the NG tube. Subjective Subjective Interval history since last seen: She had a little bit of increased nausea yesterday after the administration of the Gastrografin, but that improved through the night. She had some difficulty sleeping, but otherwise feels pretty good. She denies any nausea or vomiting this morning. She has maybe some mild increase in her appetite. Exam GI Inspection: normal to inspection and non-distended Palpation: soft and nontender Percussion: tympanic to percussion Objective Last Vital Signs Temp 99.3 F 07/22/22 07:49 Pulse 92 H 07/22/22 07:49 Resp 18 07/22/22 07:49 BP 113/69 07/22/22 07:49 Pulse Ox 94 07/22/22 07:49
--- NOTE | 2022-07-22 12:09 | INITIAL_ITS ---
- If Service Date Differs Date of service: 07/22/22 Time of Service: 12:09 Care Management Initial Assess REASON FOR HOSPITALIZATION:: small bowel obstruction PAST MEDICAL HISTORY/PAST SURGICAL HISTORY:: All Active Problems. Sjogrens syndrome (Chronic). Disorder of salivary gland (Acute 06/26/12). Localized primary osteoarthritis of lower leg (Acute 01/08/13). R KNEE; H/O ACL SURG ; RX PT. Other malaise and fatigue (Acute 06/26/12). Sjogren's syndrome (Acute 01/08/13). Tendinitis of left rotator cuff (Acute). Bilateral tinnitus (Acute 11/21/19). [place]. Sensorineural hearing loss of combined sites, bilateral (Chronic). Female bladder prolapse, acquired (Acute). 02/27/20 [facility] Contin[facility] Center. Non-restorative sleep (Acute). Ventral hernia (Acute). Dysphagia (Acute). Sensorineural hearing loss, bilateral (Acute). Degenerative joint disease of left hip (Acute). Degenerative joint disease of right hip (Acute). Small bowel obstruction (Acute). Medical History. Fracture of femoral neck, left (11/16/14). Fracture, intertrochanteric, right femur. History of COVID-19. 2019. Hx of fracture of hip. Hx of tear of ACL (anterior cruciate ligament). right. Surgical History. H/O surgical procedure. a. hysterectomy. b. ACL repair right knee. Hx of cholecystectomy. Hx of right knee surgery. acl. Oophrectomy, Both. with hyst. Vaginal hysterectomy. 2001 for prolapse PREVIOUS FUNCTIONAL STATUS/SOCIAL/FAMILY SUPPORTS:: Sherly lives in [place] with her , Joe, and her son, Waldo. Her family is very supportive. She is active and independent in the community at baseline. CURRENT FUNCTIONAL STATUS:: Sherly was lying in bed when CM met with her. She stated that she spoke to MD, who reported that her diet would be slowly advanced, and if she tolerates it well, she will likely be ready for discharge in the next day or two. She stated that she is happy with this plan, and does not anticipate the need for services upon discharge. CM will continue to follow. ADVANCE DIRECTIVES:: Not on file at [facility]. Has patient been provided with info about the portal/API?: Yes Did the patient sign up for the portal?: No CODE STATUS:: Full Code INSURANCE COVERAGE / FINANCIAL ISSUES:: MCR/ CURRENT HOME/COMMUNITY SERVICES/EQUIPMENT:: No current services or equipment. PRIMARY CARE PHYSICIAN:: Albina Canales POTENTIAL DISCHARGE NEEDS:: Evaluations for further needs, follow up appointments. PATIENT/FAMILY EDUCATION NEEDS:: Review discharge instructions and limitations, discussion of self care needs including ask me three. ANTICIPATED BARRIERS TO DISCHARGE:: None identified. TRANSPORTATION:: Via private vehicle by family. PLAN:: Sherly will likely return home once medically cleared. She will be driven home via private vehicle. She will follow up with her PCP and discharge plan of care. CM will continue to follow.
--- NOTE | 2022-07-22 12:10 | W.PM.PROGNOT ---
Date of Service Date of service: 07/22/22 Time of Service: 12:10 Assessment and Plan Assessment and plan (1) Partial small bowel obstruction: Status: Acute Assessment and plan: Continue supportive care Tolerating clear liquids Continue ambulation We will add in MiraLAX Results of x-ray reviewed (2) S/P hip replacement: Status: Acute Subjective Subjective Interval history since last seen: Pt is doing well. no headaches. No CP or SOB. no productive cough. no dysuria. no leg pain or swelling. Passing gas. No BM. tolerating clears. No N/V. Exam Narrative Exam Narrative: PHYSICAL EXAM GENERAL APPEARANCE: Alert, healthy appearance, oriented, x 3,? in no acute distress HEAD, EYES, EARS, NECK, THROAT: Head is normocephalic, pupils equal, round, reactive to light and accommodation, ocular movement intact, sclera clear and no jaundice. ?Dentition intact. No sore throat.? LUNGS: normal respiration/normal chest excursion. ?Clear to auscultation bilaterally. ?No R/R/W ?HEART: Regular rate and rhythm. no murmurs EXTREMITY: No edema or cyanosis.? no leg pain, redness, swelling.? No IV infiltration ABDOMEN: soft and non-tender to palpation.? Normal bowel sounds.? Objective Last Vital Signs Temp 37.4 C 07/22/22 07:49 Pulse 92 H 07/22/22 07:49 Resp 18 07/22/22 07:49 BP 113/69 07/22/22 07:49 Pulse Ox 94 07/22/22 07:49
[2022-07-22] MEDS: Acetaminophen 500 MG TAB 1000 MG PO ×2 (12:29→19:16)
--- NOTE | 2022-07-22 16:51 | CHAPLAIN ---
Sherly had some visitors with her when I stopped in. In explained my role and offered support. 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
[2022-07-22 18:57] VITALS: BP 138/75; PULSE 79; RESP 16; TEMP 37.7; O2SAT 95
[2022-07-22] MEDS: Melatonin 3 MG TAB PO (21:06)
[2022-07-22 23:25] VITALS: BP 119/76; PULSE 72; RESP 18; TEMP 37.2; O2SAT 94
--- NOTE | 2022-07-23 | DI.RAD_ITS ---
Exam(s) XR ABDOMEN FLAT UPRIGHT EXAM: XR ABDOMEN FLAT UPRIGHT CLINICAL HISTORY: f/u on partial SBO. TECHNIQUE: 2D digital imaging was performed. COMPARISON: CR XR ABDOMEN FLAT PLATE from 07/22/2022 FINDINGS: 3 views The NG tube is been removed. Again noted is evidence of previous cholecystectomy and bilateral hip h ardware is again noted. There still air-filled dilated small bowel loops with air-fluid levels seen on the upright view. Con trast is seen in the entire length of the nondilated colon. There is no free intraperitoneal air. IMPRESSION: Persistent small-bowel obstruction. This is incomplete small bowel obstruction as the contrast is ag ain noted to have progressed into the colon. DATA REPOSITORY: RADIATION DOSE DELIVERED:
[2022-07-23] MEDS: Acetaminophen 500 MG TAB 1000 MG PO ×2 (03:41→12:31)
[2022-07-23] MEDS: Aspirin 81 MG CHEW PO (07:35)
[2022-07-23] MEDS: Pantoprazole 40 MG TABCR PO (07:35)
[2022-07-23 08:02] VITALS: BP 133/70; PULSE 78; RESP 16; TEMP 36.6; O2SAT 96
--- NOTE | 2022-07-23 10:12 | W.PM.PROGNOT ---
Date of Service Date of service: 07/23/22 Time of Service: 10:12 Assessment and Plan Assessment and plan (1) Partial small bowel obstruction: Status: Acute Assessment and plan: Continue supportive care Tolerating full liquids Continue ambulation We will add in MiraLAX Check abdo-xray again today There was no imrpovement in the size of her small intestin yesterday. There was contrast in the large intestine. (2) S/P hip replacement: Status: Acute Subjective Subjective Interval history since last seen: Mrs Pagan is feeling better today. She had several bouts of diiarrhea yesterday. Still passing flatus. Feels her abdomen is less distended. No N/V. Tolerating a full liquid diet. Exam Const General: comfortable and no acute distress HENSD Head: normocephalic and atraumatic Resp Effort & Inspection: normal respiratory effort Auscultation: clear to auscultation bilaterally Cardio Rate: regular rate Rhythm: regular rhythm GI Inspection: visible herniation (epigastric) Palpation: soft, no hepatosplenomegaly, hernia (epigastric-reducible) and nontender Auscultation: hypoactive bowel sounds Objective Last Vital Signs Temp 97.9 F 07/23/22 08:02 Pulse 78 07/23/22 08:02 Resp 16 07/23/22 08:02 BP 133/70 07/23/22 08:02 Pulse Ox 96 07/23/22 08:02
--- NOTE | 2022-07-23 11:15 | DI.VRAD_ITS ---
Addendum created by Cassandra Rosado MD on 07/23/2022 11:16:12 AM EDT: Addendum: CT can be obtained for further evaluation if clinically warranted, but is not necessarily recommended at the current time. Initial report created on 07/23/2022 11:15:15 AM EDT: PROCEDURE INFORMATION: Exam: XR Abdomen Exam date and time: 07/23/2022 10:20 AM Age: 76 years old Clinical indication: Other: Follow up on partial sbo TECHNIQUE: Imaging protocol: Radiologic exam of the abdomen. Views: 2 Views. Upright and supine views. COMPARISON: CR XR ABDOMEN FLAT PLATE 07/22/2022 8:03 AM FINDINGS: Gastrointestinal tract: Multiple abnormally dilated small bowel loops, with maximum diameter again of up to 4.9 cm. Scattered air and oral contrast material throughout the colon, which is nondilated. Intraperitoneal space: Normal. No free air. Bones/joints: No acute or suspicious osseous abnormalities. Left total hip arthroplasty noted. A dynamic compression screw is seen in the right proximal femur. The visualized portions of the metallic hardware are intact and in good position, without evidence of loosening. [id number] narrowing of the right hip joint, with associated spurring of the femoral head and acetabulum. Soft tissues: Unremarkable. Other findings: Cholecystectomy clips. IMPRESSION: 1. Persistent small bowel obstruction. Recommend CT for further evaluation. 2. [id number] osteoarthritis of the right hip joint. Dictated and Authenticated by: Cassandra Rosado MD. Ordering:MAIKEL Wheeler MD
[2022-07-23] MEDS: Ondansetron 4 MG/2 ML VIAL IVP (11:33)
[2022-07-23] MEDS: Normal Saline Flush 10 ML SYR IVP ×2 (11:34→17:45)
[2022-07-23 15:55] VITALS: BP 124/70; PULSE 81; RESP 16; TEMP 38.1; O2SAT 95
[2022-07-23] MEDS: Lactated Ringers 1,000 ML 80 ML IV (17:30)
[2022-07-23 20:11] VITALS: BP 100/65; PULSE 96; RESP 24; TEMP 37.4; O2SAT 95
[2022-07-23] MEDS: Simethicone 80 MG CHEW PO (20:26)
[2022-07-23] MEDS: Lidocaine 2% Jelly 11 ML SYR (20:58)
--- NOTE | 2022-07-23 20:59 | W.PM.PROGNOT ---
Date of Service Date of service: 07/23/22 Time of Service: 20:59 Assessment and Plan Assessment and plan (1) Partial small bowel obstruction: Status: Acute Assessment and plan: Sherly developed increased distention and sob. Vitals were stable NG tube placed NPO Labs ordered for morning ABDO Xray ordered for the morning Discussed case earlier with her . He doesnt want patient to have surgery by me. He prefers Dr. Jimenez. I did let him know that Dr. Jimenez would not be avaiable until Monday and that if his wifes condition didn't improve I would be recommending surgery tomorrow. He then told me he would like her transfered to [facility]. I told him I could certainly try but that [facility] and [facility] [place] have both been at capacity and not taking transferes even with critical patients. I have discussed this with the patient and she doesn't seem to want to get transfered. I will discuss with patent tomorrow once we have labs and XRay. (2) S/P hip replacement: Status: Acute Assessment and plan: Dressing on since surgery. Will let Dr. Bender know that she is still in house on Monday Subjective Subjective Interval history since last seen: Patient started to complain of increased nausea and distention. She was made NPO again and fluids were started. I then got a call at around 1930 that the patients distention was getting worse and she was more nauseated. Asked for nursing to to place NG tube. Vitals were stable Exam Const General: cooperative, comfortable and no acute distress Resp Effort & Inspection: able to speak in complete sentences Auscultation: clear to auscultation bilaterally Cardio Rate: regular rate Rhythm: regular rhythm GI Inspection: normal to inspection and distended Palpation: soft, hernia and nontender Auscultation: absent bowel sounds Objective Last Vital Signs Temp 99.3 F 07/23/22 20:11 Pulse 96 H 07/23/22 20:11 Resp 24 07/23/22 20:11 BP 100/65 07/23/22 20:11 Pulse Ox 95 07/23/22 20:11
[2022-07-23 23:03] VITALS: BP 132/72; PULSE 82; RESP 16; TEMP 37.9; O2SAT 93
[2022-07-24] MEDS: Ondansetron 4 MG/2 ML VIAL IVP (01:49)
[2022-07-24] MEDS: Lactated Ringers 1,000 ML 110 ML IV ×3 (01:50→21:17)
[2022-07-24 06:45] LABS: Abs Immature Grans 0.05 10^3/uL (0.0-0.06); Absolute Basophil Count 0.03 10^3/uL (0.0-0.2); Absolute Eosinophil Count 0.01 10^3/uL (0.0-0.7); Absolute Lymphocyte Count 0.82 10^3/uL (1.2-3.4); Absolute Monocyte Count 1.08 10^3/uL (0.1-0.8); Absolute Neutrophil Count 9.54 10^3/uL (1.2-6.7); Basophils % 0.3; Eosinophils % 0.1; HCT 28.4 % (36.0-46.0); HGB 9.9 g/dL (11.2-15.7); Immature Grans % 0.4; Lymphocytes % 7.1; MCH 31.6 pg (27.0-33.0); MCHC 34.9 % (32.0-36.0); MCV 91 fL (80-95); MPV 9.1 fL (8.0-11.0); Monocytes % 9.4; Neutrophils % 82.7; Platelet Count 361 10^3/uL (130-400); RBC 3.13 10^6/uL (3.93-5.22); RDW 13.6 % (11.7-14.6); RDW-SD 44.2 fL; WBC 11.53 10^3/uL (4.4-10.8)
[2022-07-24 06:56] LABS: Anion Gap 7.3 mmol/L (3-11); BUN 19 mg/dL (7-18); CO2 26.7 mmol/L (21.0-32.0); CREATININE 0.6 mg/dL (0.55-1.02); Calcium 7.9 mg/dL (8.5-10.1); Chloride 105 mmol/L (98-107); Estimated GFR 91.82 (mL/min/1.73m2); Glucose 83 mg/dL (74-106); Magnesium 1.5 mg/dL (1.8-2.4); Potassium 3.6 mmol/L (3.5-5.1); Sodium 139 mmol/L (136-145)
[2022-07-24 07:09] VITALS: BP 134/73; PULSE 86; RESP 17; TEMP 37.6; O2SAT 93
--- NOTE | 2022-07-24 07:41 | DI.RAD_ITS ---
Exam(s) XR ABDOMEN FLAT UPRIGHT EXAM: XR ABDOMEN FLAT UPRIGHT CLINICAL HISTORY: SBO. TECHNIQUE: 2D digital imaging was performed. COMPARISON: CR,XR XR ABDOMEN FLAT UPRIGHT from 07/23/2022 FINDINGS: Two views: Supine and upright. There is an NG tube in the stomach. Evidence of previous cholecystectomy. Presently a lesser amount of air seen in the colon which is probably collapsed. There is still some small bowel obstruction pattern evident. Persistent multiple air-filled small bowel loops. There is no free air. There is infiltrate and pleural fluid on the right side now noted. More so th an previous. Bilateral hip hardware again noted. IMPRESSION: Persistent small-bowel obstruction pattern. DATA REPOSITORY: RADIATION DOSE DELIVERED:
[2022-07-24] MEDS: Normal Saline Flush 10 ML SYR IVP ×2 (07:46→11:59)
--- NOTE | 2022-07-24 09:10 | DI.VRAD_ITS ---
PROCEDURE INFORMATION: Exam: XR Abdomen Exam date and time: 07/24/2022 7:35 AM Age: 76 years old Clinical indication: Other: Follow up small bowel obstruction TECHNIQUE: Imaging protocol: Radiologic exam of the abdomen. Views: 2 Views. Upright and supine views. COMPARISON: XR ABDOMEN FLAT UPRIGHT 07/23/2022 10:20 AM FINDINGS: Tubes, catheters and devices: Enteric tube present with the tip projecting over the expected region of the stomach. Pleural spaces: Right-sided pleural effusion is present with some airspace consolidation in the right lung base that may represent atelectasis. Gastrointestinal tract: Again noted are multiple dilated loops of small bowel with stacked air-fluid levels. This is somewhat improved when compared to prior exam however there are still multiple dilated bowel loops measuring up to 4 cm in diameter. Intraperitoneal space: No evidence of pneumoperitoneum. Bones/joints: No acute bony abnormalities. IMPRESSION: 1. Enteric tube as described. 2. Persistent but improved appearance of the patient's known small-bowel obstruction. 3. Right-sided pleural effusion with right lung base consolidation which may represent atelectasis however a superimposed pneumonia would be difficult to exclude. Clinical correlation is required. Dictated and Authenticated by: Toby Maher MD. Ordering:MAIKEL Wheeler MD
[2022-07-24] MEDS: cefTRIAXone 2 GM/50 ML BAG IVPB (11:08)
[2022-07-24] MEDS: Normal Saline 500 ML 30 ML IV (11:09)
--- NOTE | 2022-07-24 11:10 | W.PM.PROGNOT ---
Date of Service Date of service: 07/24/22 Time of Service: 11:10 Assessment and Plan Assessment and plan (1) Partial small bowel obstruction: Status: Acute Assessment and plan: Sherly developed increased distention and sob last night. Vitals were stable NG tube placed- only had 275 cc out NPO Mild leukocytosis- will start on Rocephin due to ? of pneumonia. She is also s/p hip replacement. ABDO Xray today showed improvement ABDO Xray in am Discussed case with patient and family. 30 minutes spend with them. With the improvement in her Xray it is certainly safe to wait another day and see if things improve. Will keep NG in place today. Will keep NPO. Discussed the findings of atelectasis vs pneumonia- becuase of the slight leukocytosis and the fact that she just had a hip replacement I will start her an antibiotics. If we cant get her started on some nutrition then will have a PICC placed and start TPN. Once she starts on clear liquids we will make sure to start Ensure clear Patient is still not out of the abreu in regards to possible needing surgery. (2) S/P hip replacement: Status: Acute Assessment and plan: Dressing on since surgery. Will let Dr. Bender know that she is still in house on Monday Subjective Subjective Interval history since last seen: Sherly is feeling much better today. Ng tube only put out 275. XRay's show the NG tube in the right place. Small bowel has decreased in size. still passing flatus and had a large amount of liquid stool today. She has had a couple of low grade fevers. She is up and ambulating and 2 daughters are in the room this morning. Exam Const General: cooperative, comfortable and no acute distress Orientation: alert and oriented x3 HENNE Head: normocephalic and atraumatic Resp Effort & Inspection: normal respiratory effort Auscultation: clear to auscultation bilaterally Cardio Rate: regular rate Rhythm: regular rhythm GI Palpation: soft, no hepatosplenomegaly and nontender Auscultation: hypoactive bowel sounds Objective Last Vital Signs Temp 99.7 F H 07/24/22 07:09 Pulse 86 07/24/22 07:09 Resp 17 07/24/22 07:09 BP 134/73 07/24/22 07:09 Pulse Ox 93 07/24/22 07:09 Laboratory Results - last 24 hr 07/24/22 07/24/22 06:15 06:15 WBC 11.53 H RBC 3.13 L Hgb 9.9 L Hct 28.4 L MCV 91 MCH 31.6 MCHC 34.9 RDW 13.6 Plt Count 361 MPV 9.1 Immature Gran % 0.4 Neutrophils % 82.7 Lymphocytes % 7.1 Monocytes % 9.4 Eosinophils % 0.1 Basophils % 0.3 Nucleated RBC % 0.0 Absolute Neutrophils 9.54 H Absolute Lymphocytes 0.82 L Absolute Monocytes 1.08 H Absolute Eosinophils 0.01 Absolute Basophils 0.03 Sodium 139 Potassium 3.6 Chloride 105 Carbon Dioxide 26.7 Anion Gap 7.3 BUN 19 H Creatinine 0.6 Est GFR (CKD-EPI 2020) 91.82 Glucose 83 Calcium 7.9 L Magnesium 1.5 L
[2022-07-24] MEDS: MAGNESIUM SULFATE 2 GM/50 ML BAG IVPB (11:58)
[2022-07-24 15:39] VITALS: BP 123/70; PULSE 89; RESP 18; TEMP 37.8; O2SAT 94
[2022-07-24 17:13] LABS: C Diff PCR Negative (Negative)
[2022-07-24] MEDS: ACETAMINOPHEN 1,000 MG/100 ML BTL 400 MG IVPB (17:33)
[2022-07-24 22:29] VITALS: BP 120/65; PULSE 85; RESP 16; TEMP 36.7; O2SAT 94
[2022-07-25] VITALS (16 sets, daily range): BP systolic 116–141; BP diastolic 62–74; PULSE 70–88; RESP 15–25; TEMP 36.4–37.9; O2SAT 92–97; BMI 22.1
[2022-07-25] MEDS: Lactated Ringers 1,000 ML 110 ML IV (06:33)
[2022-07-25 06:51] LABS: Abs Immature Grans 0.06 10^3/uL (0.0-0.06); Absolute Basophil Count 0.03 10^3/uL (0.0-0.2); Absolute Eosinophil Count 0.06 10^3/uL (0.0-0.7); Absolute Lymphocyte Count 1.21 10^3/uL (1.2-3.4); Absolute Monocyte Count 0.69 10^3/uL (0.1-0.8); Absolute Neutrophil Count 8.24 10^3/uL (1.2-6.7); Basophils % 0.3; Eosinophils % 0.6; HCT 31.4 % (36.0-46.0); HGB 10.7 g/dL (11.2-15.7); Immature Grans % 0.6; Lymphocytes % 11.8; MCH 31.8 pg (27.0-33.0); MCHC 34.1 % (32.0-36.0); MCV 93 fL (80-95); Monocytes % 6.7; Platelet Count 404 10^3/uL (130-400); RBC 3.37 10^6/uL (3.93-5.22); RDW 13.5 % (11.7-14.6); RDW-SD 45.5 fL; WBC 10.29 10^3/uL (4.4-10.8)
[2022-07-25 07:03] LABS: Anion Gap 12.8 mmol/L (3-11); BUN 20 mg/dL (7-18); CO2 23.2 mmol/L (21.0-32.0); CREATININE 0.6 mg/dL (0.55-1.02); Calcium 7.7 mg/dL (8.5-10.1); Chloride 104 mmol/L (98-107); Estimated GFR 91.82 (mL/min/1.73m2); Glucose 61 mg/dL (74-106); Magnesium 1.7 mg/dL (1.8-2.4); Potassium 3.3 mmol/L (3.5-5.1); Sodium 140 mmol/L (136-145)
--- NOTE | 2022-07-25 08:00 | DI.RAD_ITS ---
Exam(s) XR ABDOMEN FLAT UPRIGHT EXAM: XR ABDOMEN FLAT UPRIGHT CLINICAL HISTORY: f/u sbo. TECHNIQUE: 2D digital imaging was performed. COMPARISON: CR,XR XR ABDOMEN FLAT UPRIGHT from 07/24/2022 FINDINGS: 3 views The NG tube remains in the stomach. Another larger caliber tube is projected over this area which is probably outside of the body. There is a persistent small-bowel obstruction pattern there field slightly dilated small bowel loops with multiple air-fluid levels. No free air. No obvious pneumatosis. Air is seen in the colon toe this is probably not a complete obstruction. Evidence of prior cholecystectomy again noted. There i s some probable infiltrate in the right lung base evident. IMPRESSION: Persistent small-bowel obstruction, probably incomplete. DATA REPOSITORY: RADIATION DOSE DELIVERED:
--- NOTE | 2022-07-25 09:21 | PGE_ITS ---
Date of Service Date of service: 07/25/22 Time of Service: 09:21 Assessment and Plan Assessment and plan (1) S/P hip replacement: Status: Acute (2) Partial small bowel obstruction: Status: Acute Assessment and plan: She does appear to have a partial bowel obstruction that waxes and wanes. Today she does appear to be completely obstructed. I did review her x-rays and there is no change in the past 4 to 5 days. At this point she does need to have surgery. I discussed with her and her what that would entail. They would prefer to have Dr. Jimenez do the procedure She has not eaten since last Monday. She is postop day 13 from a open right hip replacement. She is definitely protein replete. And we should consider st arting TPN. She has fish smoker COVID and some memory issues from this and is concerned about anesthesia. We discussed placing an epidural for postop pain control as well. (3) Sjogrens syndrome: Status: Chronic (4) Localized primary osteoarthritis of lower leg: Status: Acute (5) Sensorineural hearing loss of combined sites, bilateral: Status: Chronic (6) Female bladder prolapse, acquired: Status: Acute (7) Ventral hernia: Status: Acute Qualifiers: Obstruction and gangrene presence: without obstruction or gangrene Qualified Code(s): K43.9 - Ventral hernia without obstruction or gangrene Subjective Subjective Interval history since last seen: Pt is complains of abdominal distention no headaches. No CP or SOB. no productive cough. no dysuria. no leg pain or swelling. She is not passing gas today She had multiple bowel movements yesterday. Exam Narrative Exam Narrative: PHYSICAL EXAM GENERAL APPEARANCE: Alert, healthy appearance, oriented, x 3,? in no acute distress HYDRATION: Well hydrated HEAD, EYES, EARS, NECK, THROAT: Head is normocephalic, pupils equal, round, reactive to light and accommodation, ocular movement intact, sclera clear and no jaundice. ?Dentition intact. No sore throat.? No jaw pain. No thrush LUNGS: normal respiration/normal chest excursion. ?Clear to auscultation bilaterally. ?No R/R/W ?HEART: Regular rate and rhythm. no murmurs EXTREMITY: No edema or cyanosis.? no leg pain, redness, swelling.? No IV infilt ration dressing from her hip is still in place ABDOMEN: Mild distention. She has no bowel sounds. No peritonitis. Objective Last Vital Signs Temp 37.2 C 07/25/22 07:29 Pulse 87 07/25/22 07:29 Resp 17 07/25/22 07:29 BP 132/64 07/25/22 07:29 Pulse Ox 94 07/25/22 07:29 Laboratory Results - last 24 hr 07/24/22 07/25/22 07/25/22 16:00 06:15 06:15 WBC 10.29 RBC 3.37 L Hgb 10.7 L Hct 31.4 L MCV 93 MCH 31.8 MCHC 34.1 RDW 13.5 Plt Count 404 H MPV 9.0 Immature Gran % 0.6 Neutrophils % 80.0 Lymphocytes % 11.8 Monocytes % 6.7 Eosinophils % 0.6 Basophils % 0.3 Nucleated RBC % 0.0 Absolute Neutrophils 8.24 H Absolute Lymphocytes 1.21 Absolute Monocytes 0.69 Absolute Eosinophils 0.06 Absolute Basophils 0.03 Sodium 140 Potassium 3.3 L Chloride 104 Carbon Dioxide 23.2 Anion Gap 12.8 H BUN 20 H Creatinine 0.6 Est GFR (CKD-EPI 2020) 91.82 Glucose 61 L Calcium 7.7 L Magnesium 1.7 L Stl C.difficile Tox PCR Negative
[2022-07-25] MEDS: DEXTROSE 5%-0.45% SALINE 1,000 ML 75 ML IV ×2 (09:37→17:47)
--- NOTE | 2022-07-25 10:04 | NS.NUTBLAN_ITS ---
Date of service: 07/25/22 Time of Service: 10:04 Nutritional Consult ASSESSMENT: 76 year old female s/p hip replacement, now with SBO. No PO intake x 6 days. BMI wnl but on lower end in view of advanced age. Surgery considering TPN. At high nutritional risk in view of recent surgery and prolonged fast. Estimated 2799-8509 kcal, 67-78g protein, 1680 ml fluid (BEE x 1.2 - 1.5, 1.2- 1.4 g pro/kg, 30 ml fluid/kg) NUTRITIONAL DIAGNOSIS: Inability to consume necessary nutrient and fluid secondary to small bowel obstruction INTERVENTION: Recommend TPN Clinimix (4.25/10) 2000 ml run at 83 cc/hour. 20% lipids 250 ml run at 31.25 cc/hour providing 1520 kcal, 84 g protein, 55 g fat MONITORING AND EVALUATION: labs, weight, diet/oral intake Time Spent in Nutritional Counseling and Treatment: 20
[2022-07-25] MEDS: cefTRIAXone 2 GM/50 ML BAG IVPB (10:06)
[2022-07-25] MEDS: POTASSIUM CHLORIDE 10 MEQ/100 ML BAG 50 MEQ IVPB (10:49)
--- NOTE | 2022-07-25 11:19 | ANES.PREOP_ITS ---
General Info Date of Service Date Performed: 07/25/22 Height: 5 ft 3 in Weight: 56.699 kg Body Mass Index (BMI): 22.1 Surgical Procedure: Operation Date: 07/25/22 13:40 Proposed Procedure Side Surgeon p Exploratory Laparoscopy ? Sm. Bowel Resection Miguelito Jimenez MD Meds Allergies and Home Medications Allergies Allergy/AdvReac Type Severity Reaction Status Date / Time Sulfa (Sulfonamide Allergy Mild Skin Rash Verified 07/21/22 09:02 Antibiotics) lactose Allergy Unverified 07/22/22 18:14 Home Medication Medication Instructions Recorded cholecalciferol (vitamin D3) 25 1,000 unit PO DAILY 12/06/12 mcg (1,000 unit) tablet calcium carbonate 600 mg calcium 600 mg PO DAILY 07/25/14 (1,500 mg) tablet (Calcium) cod liver oil 118 ml PO DAILY 07/25/14 Lactobacillus acidophilus 10 1 ea PO DAILY 10/15/15 billion cell capsule (Probiotic) tumeric 1 cap PO BID 11/10/20 acetaminophen 500 mg tablet 1,000 mg PO TID #90 tabs 07/12/22 aspirin 81 mg tablet,delayed 81 mg PO BID #60 tabs 07/12/22 release celecoxib 200 mg capsule 200 mg PO BID #60 caps 07/12/22 pantoprazole 40 mg tablet,delayed 40 mg PO DAILY #30 tabs 07/12/22 release Current Visit Medications: Current Medications Generic Name Dose Route Start Last Admin Trade Name Freq PRN Reason Stop Dose Admin Acetaminophen 1,000 mg 07/22/22 12:00 07/23/22 12:31 Acetaminophen 500 Mg Tab PO 1,000 mg Q8H MONIKA Administration Aspirin 81 mg 07/21/22 20:00 07/23/22 07:35 Aspirin 81 Mg Chew PO 81 mg DAILY MONIKA Administration Benzocaine/Menthol 1 each 07/23/22 20:58 Benzocaine/Menthol Lozg 18/Box SUC Q6H PRN PRN Diphenhydramine HCl 12.5 mg 07/23/22 21:19 Diphenhydramine 50 Mg/Ml Vial IVP HS PRN Insomnia Enoxaparin Sodium 40 mg 07/25/22 08:30 07/25/22 09:31 Enoxaparin 40 Mg/0.4 Ml Syr SC Not Given DAILY MONIKA Fentanyl 25 mcg 07/23/22 20:57 Fentanyl 100 Mcg/2 Ml Vial IVP Q2H PRN PRN Sodium Chloride 500 mls @ 0 mls/hr 07/21/22 07:59 07/24/22 11:59 Saline 500ml Bag IV 0 mls/hr PRN PRN Infusion As Directed Acetaminophen 1,000 mg in 100 mls @ 400 mls/hr 07/23/22 18:31 07/24/22 17:33 Ofirmev IVPB 400 mls/hr Q8H PRN PRN Administration Fever >101 Ceftriaxone Sodium/Dextrose 2 gm in 50 mls @ 100 mls/hr 07/24/22 10:00 07/25/22 10:06 Rocephin IVPB 100 mls/hr Q24H MONIKA Administration Dextrose/Sodium Chloride 1,000 mls @ 75 mls/hr 07/25/22 09:00 07/25/22 09:37 Dextrose 5%-0.45% Ns IV 75 mls/hr INFUSION MONIKA Administration IV Miscellaneous Supplies 1 each 07/21/22 08:00 Iv Access IV DIRECTED MONIKA Melatonin 3 mg 07/22/22 22:00 07/22/22 21:06 Melatonin 3 Mg Tab PO 3 mg HS MONIKA Administration Ondansetron HCl 4 mg 07/21/22 14:53 07/24/22 01:49 EST Ondansetron 4 Mg/2 Ml Vial IVP 4 mg Q8H PRN PRN Administration Pantoprazole Sodium 40 mg 07/23/22 07:30 07/23/22 07:35 Pantoprazole 40 Mg Tabcr PO 40 mg DAILY@0730 MONIKA Administration Polyethylene Glycol 17 gm 07/23/22 08:30 07/23/22 07:35 Polyethylene Glycol 3350 17 Gm Packet PO Not Given DAILY MONIKA Sodium Chloride 0 ml 07/21/22 07:59 Normal Saline Flush 10 Ml Syr IVP PRN PRN PFSH Active Problems Active Problems: Problem Status Onset Code S/P hip replacement Z96.649 Partial small bowel obstruction K56.600 Sjogrens syndrome M35.00 Disorder of salivary gland 06/26/12 K11.9 Localized primary osteoarthritis of lower leg 01/08/13 M17.10 Other malaise and fatigue 06/26/12 R53.81, R53.83 Sjogren's syndrome 01/08/13 M35.00 Tendinitis of left rotator cuff M75.82 Bilateral tinnitus 11/21/19 H93.13 Sensorineural hearing loss of combined sites, bilateral H90.3 Female bladder prolapse, acquired N81.10 Non-restorative sleep G47.8 Ventral hernia K43.9 Dysphagia R13.10 Sensorineural hearing loss, bilateral H90.3 Degenerative joint disease of left hip M16.12 Degenerative joint disease of right hip M16.11 Small bowel obstruction K56.609 Medical History Medical History Fracture of femoral neck, left (11/16/14) Fracture, intertrochanteric, right femur History of COVID-19 2020 Hx of fracture of hip Hx of tear of ACL (anterior cruciate ligament) right Medical History Comments:: daughter has nausea with opoids Surgical History Surgical History H/O surgical procedure a. hysterectomy b. ACL repair right knee Hx of cholecystectomy Hx of right knee surgery acl Oophrectomy, Both with hyst Vaginal hysterectomy 2001 for prolapse Tobacco Smoking/Tobacco Use Status: Never Alcohol Alcohol Intake: never Substance Use Substance use: Never Substance use type: does not use Vital Signs and Lab Results Vital Signs Most Recent Vital Signs in EMR: Most Recent Vital Signs Temp Pulse Resp BP Pulse Ox 37.2 C 87 17 132/64 94 07/25/22 07:29 07/25/22 07:29 07/25/22 07:29 07/25/22 07:29 07/25/22 07:29 Lab Results Result Diagrams: 07/25/22 06:15 07/25/22 06:15 Blood Type / Crossmatch: No Data to Display Complete Blood Count: White Blood Count 10.29 10^3/uL (4.4-10.8) 07/25/22 06:15 Red Blood Count 3.37 10^6/uL (3.93-5.22) L 07/25/22 06:15 Hemoglobin 10.7 g/dL (11.2-15.7) L 07/25/22 06:15 Hematocrit 31.4 % (36.0-46.0) L 07/25/22 06:15 Platelet Count 404 10^3/uL (130-400) H 07/25/22 06:15 Complete Metabolic Panel: Sodium 140 mmol/L (136-145) 07/25/22 06:15 Potassium 3.3 mmol/L (3.5-5.1) L 07/25/22 06:15 Chloride 104 mmol/L (98-107) 07/25/22 06:15 Carbon Dioxide 23.2 mmol/L (21.0-32.0) 07/25/22 06:15 BUN 20 mg/dL (7-18) H 07/25/22 06:15 Creatinine 0.6 mg/dL (0.55-1.02) 07/25/22 06:15 Est GFR (CKD-EPI 2020) 91.82 (mL/min/1.73m2) 07/25/22 06:15 Magnesium 1.7 mg/dL (1.8-2.4) L 07/25/22 06:15 Calcium 7.7 mg/dL (8.5-10.1) L 07/25/22 06:15 Albumin 3.3 g/dL (3.4-5.0) L 07/21/22 04:31 Glucose 61 mg/dL (74-106) L 07/25/22 06:15 Liver Function Panel: Alanine Aminotransferase (ALT/SGPT) 29 U/L (14-59) 07/21/22 04: 31 Aspartate Amino Transf (AST/SGOT) 26 U/L (15-37) 07/21/22 04:31 Coagulation Panel: No Data to Display Cardiac Panel: No Data to Display Arterial Blood Gas: No Data to Display Venous Blood Gas: No Data to Display Pancreas Panel: Lipase 88 U/L (73-393) 07/21/22 04:31 Thyroid Panel: No Data to Display Infectious Disease: Coronavirus (COVID-19)(PCR) Negative (Negative) 07/21/22 08:20 Coronavirus 2019 Source Nasal/Nares 07/21/22 08:20 Blood Cultures: No Data to Display Toxicology Panel: No Data to Display Anesthesia Assessment and Plan Anesthesia History Personal History: No History of Anesthesia Complications Family History: No Family History of Anesthesia Complications Exercise Tolerance Exercise Tolerance: Metabolic Equivalents>4 Pertinent Negatives Pertinent Negatives: No Symptoms of GERD, No Major Cardiovascular Symptoms or Complaints, No Major Pulmonary Symptoms or Complaints and No History of CVA/TIA Cardiac & Pulmonary Exam Cardiac Exam: Normal S1/S2 Heart Sounds Pulmonary Exam: Clear Bilateral Breath Sounds Implantable Cardiac Device Does patient have a Pacemaker or an ICD?: No Airway Exam Known Difficult Airway: No Mallampati Class: 2 Mouth Opening: Normal (> 3cm) Thyromental Distance: Greater than 3 cm Neck Range of Motion: Full ROM Neck Circumference: Normal Teeth Condition: Normal Dentition ASA Classification ASA Score: ASA 2 Emergency Case?: Yes NPO Status NPO Status: Full Stomach Anesthesia Plan Resuscitation Status: Full Code Anesthesia Technique: General Anesthesia Airway Planned: Endotracheal Tube Pain Management: Epidural (Consent for rescue) Monitors Used: Standard Monitors Preoperative Comments:: Significant patient concern related to receiving a general anesthetic, discussed at length.
--- NOTE | 2022-07-25 12:49 | PDOC.CMPRO ---
- If Service Date Differs Date of service: 07/25/22 Time of Service: 12:49
[2022-07-25] MEDS: Lactated Ringers 1,000 ML 30 ML IV (13:32)
[2022-07-25] MEDS: Bupivacaine 0.25% Pres-Free 30 ML VIAL (14:40)
--- NOTE | 2022-07-25 15:14 | ROE_ITS ---
Date of service: 07/25/22 Time of Service: 15:14 Operative Note Operative Note DATE OF PROCEDURE: 07/25/22 PRE-OP DIAGNOSIS: Partial small bowel obstruction POST-OP DIAGNOSIS: other (Partial small bowel obstruction with adhesions to the right lower quadrant) PROCEDURE: Exploratory laparoscopy, lysis of adhesions SURGEON: Miguelito Jimenez ASSISTING SURGEON: Summer Montesinos ANESTHESIA TYPE: Local By Surgeon and General LMA/ETT Refer to Anesthesia Record ESTIMATED BLOOD LOSS: 50 COMPLICATIONS: None Patient was transported to: PACU Patient's condition: stable Indications: Sherly is a 76-year-old woman who came to the hospital with acute abdominal pain. She had a history and physical exam that were concerning for partial small bowel obstruction. She underwent imaging that confirmed that diagnosis. She was admitted to the hospital with nasogastric tube, and a Gastrografin challenge was performed. Contrast failed to reach the cecum by 8 hours, but it was evident in the colon by the 12-hour ari. She started passing flatus, and most of her symptoms resolved. The nasogastric tube was removed, and her diet was advanced, unfortunately, she had recrudescence of symptoms and abdominal distention. Imaging suggested ongoing partial small bowel obstruction. Therefore, we discussed the risks and benefits of surgery, and she provided informed consent. Findings: Dense adhesions in the right hemiabdomen causing partial obstruction of small intestine and cecum Procedure Description: After the induction of general anesthesia, a Salazar urinary bladder catheter was placed using aseptic technique. Next, the patient was prepped and draped with arms tucked. I started with a midline supraumbilical incision and dissected down to the fascia. I grasped the fascia with [place] clamps and elevated it. I incised the fascia sharply and entered the peritoneal cavity under direct vision. Here, I affixed a 12 mm Tarango operating port to the fascia with interrupted Vicryl sutures. Next, the peritoneum was insufflated and a 5 mm 30 degree scope was inserted. There was clear dilation of the small intestine. There was some bilious stained ascites. There was no evidence of obvious perforation. Next, I quickly surveyed the abdomen. There were some adhesions in the right side of the abdomen towards the right upper quadrant that were clearly causing abnormal confirmation of the cecal mass that became in the ascending colon. I suspected this was the most likely area of the partial obstruction. Therefore, with the assistance of the laparoscope, I placed a 5 mm operating port towards the right upper quadrant, and one in the suprapubic posit ion. Next, using positioning, and by maneuvering the camera, we began by running the small intestine. I traced the cecum towards the appendix and identified the insertion of the terminal ileum into the cecum. Next, using hand overhand technique, I ran the bowel retrograde. There was a fold of small intestine heading down into the pelvis, and then back up towards the right hemiabdomen. The bowel was quite mobile, and with hand overhand technique, he was able to come free from that position. The bowel was dilated, and mildly erythematous. There was no focal point of stricture or evidence of a discrete adhesive band. I continued running the bowel along the length of the entire small intestine until the ligament of Treitz. Aside from the very beginning mobilization of the small intestine, there were no other areas concerning for obstruction. Next, I turned my attention to the large intestine. Again, starting at the cecum, I examined the bowel antegrade towards the ascending colo n. As previously mentioned, there were some dense adhesions in the right mid abdomen, and an area where there may have been previous ports from the cholecystectomy. This caused a significant amount of portion on the cecum and the ascending colon. It almost had a confirmation of cecal volvulus. Using gentle downward traction, I could realign the cecum in a straight fashion. It looked a bit dilated to these adhesions. Therefore, using the LigaSure device, I lysed the adhesions across the anterior abdominal wall until the cecum and ascending colon were nicely mobilized. This allowed for a much more normal alignment of the ascending colon. I was able to traced this up towards the hepatic flexure. There were some other adhesions of the greater omentum onto the gallbladder fossa that were easily lysed. I could see the hepatic flexure turning into the transverse colon, and the remainder of the colon through the splenic flexure descending colon and sigmoid all appeared normal. Finally, the left lobe of the liver was gently retracted cephalad. The lesser sac was clearly visualized and appeared normal. The stomach up to the GE junction was normal. Having run the entirety of the gastrointestinal tract, improving there was no longer any current evidence of obstruction, felt satisfied to terminate the operation at that point. The 5 mm port sites were removed under direct visi on, and the Tarango port was removed. I closed the umbilical defect with interrupted Vicryl stitches. The wounds were irrigated, and closed with subcuticular absorbable sutures. Bandages were applied, and she was awoken from anesthesia and transferred to the recovery unit.
--- NOTE | 2022-07-25 15:22 | W.ANESPOSTOP ---
Postoperative Evaluation Date, Time and Location Date Performed: 07/25/22 Time Performed: 15:22 Patient Location: PACU Vital Signs Most Recent Imported Vital Signs: Most Recent Vital Signs Temp Pulse Resp BP Pulse Ox 37.2 C 87 17 132/64 94 07/25/22 07:29 07/25/22 07:29 07/25/22 07:29 07/25/22 07:29 07/25/22 07:29 Pain Score Most Recent Pain Score: Most Recent Pain Score Pain Level 0 07/25/22 07:29 Assessment Mental Status: Awake (Alert & Oriented to Patient Baseline) Airway and Respiratory Function: Patent airway with normal (patient baseline) respiratory exam Cardiovascular Function: Hemodynamically Stable Hydration Status: Adequately Hydrated Nausea & Vomiting: No Nausea or Vomiting Pain: Pt. Denies Any Pain Peripheral Nerve Block: Patient did not receive a nerve block
--- NOTE | 2022-07-25 16:45 | PDOC.CMPRO ---
- If Service Date Differs Date of service: 07/25/22 Time of Service: 16:45 Care Management Progress Note S/O: Sheryl went to the OR today, therefore CM did not have an opportunity to meet with her. Per report, her small bowel obstruction became completely obstructed, and there has not been change in the last 4-[address] Jimenez did the procedure, at the patient's request. CM will continue to follow. A: Sherly is a 76 year old female admitted to [facility] on 07/21/22 with a SBO. P: Sherly will likely return home once medically cleared. She will be driven home via private vehicle. She will follow up with her PCP and discharge plan of care. CM will continue to follow.
[2022-07-25] MEDS: ACETAMINOPHEN 1,000 MG/100 ML BTL 400 MG IVPB (20:02)
[2022-07-26] MEDS: DEXTROSE 5%-0.45% SALINE 1,000 ML 75 ML IV ×2 (05:46→18:26)
[2022-07-26 06:41] LABS: Abs Immature Grans 0.09 10^3/uL (0.0-0.06); Absolute Basophil Count 0.02 10^3/uL (0.0-0.2); Absolute Eosinophil Count 0.02 10^3/uL (0.0-0.7); Absolute Lymphocyte Count 1.66 10^3/uL (1.2-3.4); Absolute Monocyte Count 0.74 10^3/uL (0.1-0.8); Basophils % 0.2; Eosinophils % 0.2; HCT 31.5 % (36.0-46.0); HGB 10.7 g/dL (11.2-15.7); Immature Grans % 0.8; Lymphocytes % 14.5; MCH 31.4 pg (27.0-33.0); MCV 92 fL (80-95); MPV 8.9 fL (8.0-11.0); Monocytes % 6.5; Neutrophils % 77.8; Platelet Count 441 10^3/uL (130-400); RBC 3.41 10^6/uL (3.93-5.22); RDW 13.4 % (11.7-14.6); RDW-SD 44.9 fL; WBC 11.45 10^3/uL (4.4-10.8)
[2022-07-26 06:50] LABS: Anion Gap 9.6 mmol/L (3-11); BUN 17 mg/dL (7-18); CO2 26.4 mmol/L (21.0-32.0); CREATININE 0.8 mg/dL (0.55-1.02); Calcium 8.1 mg/dL (8.5-10.1); Chloride 102 mmol/L (98-107); Estimated GFR 75.37 (mL/min/1.73m2); Glucose 108 mg/dL (74-106); Magnesium 1.7 mg/dL (1.8-2.4); Sodium 138 mmol/L (136-145)
[2022-07-26 07:18] LABS: Absolute Neutrophil Count 8.91 10^3/uL (1.2-6.7)
[2022-07-26 07:59] VITALS: BP 132/70; PULSE 85; RESP 16; TEMP 36.8; O2SAT 92
--- NOTE | 2022-07-26 08:21 | PDOC.CMPRO ---
- If Service Date Differs Date of service: 07/26/22 Time of Service: 08:21 Care Management Progress Note S/O: Sherly was sitting up in a chair visiting with her daughter when CM met with her. She was very open and pleasant and engaged easily with CM. Sherly shared that she is feeling really good today. She had surgery yesterday and stated that her pain is minimal. She remains NPO and verbalized that she is hopeful that she may be able to have fluids later today. She identified coffee as her first choice of liquids, as that always helps her get things started. She shared that she has passed flatus but has not had a BM yet. A: Sherly is a 76 year old female admitted to [facility] on 07/21/22 with a SBO. P: Sherly will likely return home once medically cleared. She will be driven home via private vehicle. She will follow up with her PCP and discharge plan of care. CM will continue to follow.
[2022-07-26] MEDS: Enoxaparin 40 MG/0.4 ML SYR SC (09:07)
[2022-07-26] MEDS: Normal Saline Flush 10 ML SYR IVP (09:07)
[2022-07-26] MEDS: cefTRIAXone 2 GM/50 ML BAG IVPB (10:18)
--- NOTE | 2022-07-26 12:02 | PHACLINREV_ITS ---
Pharmacy Admission Review - Admission Clinical Review (Last Reviewed 07/21/22 @ 20:07 by Miguelito Jimenez MD) S/P hip replacement (Acute) Partial small bowel obstruction (Acute) Localized primary osteoarthritis of lower leg (Acute 01/08/13) Female bladder prolapse, acquired (Acute) Ventral hernia (Acute) Small bowel obstruction (Acute) Sulfa (Sulfonamide Antibiotics) Allergy (Mild, Verified 07/21/22 09:02) Skin Rash lactose Allergy (Unverified 07/22/22 18:14) Resuscitation Status Full Code Height 5 ft 3 in Weight 56.699 kg - Renal Dosing Renal Dosing: BUN 17 mg/dL (7-18) 07/26/22 06:25 Creatinine 0.8 mg/dL (0.55-1.02) 07/26/22 06:25 Medications needing adjustments: Reviewed (Crcl ~41.5 mL/min current meds okay) - Anticoagulation Anticoagulation: Hgb 10.7 g/dL (11.2-15.7) L 07/26/22 06:25 Hct 31.5 % (36.0-46.0) L 07/26/22 06:25 Plt Count 441 10^3/uL (130-400) H 07/26/22 06:25 Creatinine 0.8 mg/dL (0.55-1.02) 07/26/22 06:25 DVT Prophylaxis: Reviewed Medications: Enoxaparin Therapeutic Anticoagulation: N/A - Opiate Usage Evaluate Pain Scale/Pains Meds: Reviewed (fentanyl ordered PRN but pt has not had any doses of this) Scheduled Bowel Reg ordered if on Opiates?: Yes (on hold as pt is NPO) - Relevant Labs Sodium 138 mmol/L (136-145) 07/26/22 06:25 Potassium 3.0 mmol/L (3.5-5.1) L 07/26/22 06:25 Chloride 102 mmol/L (98-107) 07/26/22 06:25 Magnesium 1.7 mg/dL (1.8-2.4) L 07/26/22 06:25 Electrolytes, C-Reactive P, ESR: Intervened (mag and K+ low, no replacement curr ently ordered, will mention to provider) - DM Control DM Control: Glucose 108 mg/dL (74-106) H 07/26/22 06:25 DM Control: Reviewed - Cardiac Review BP, HR, EF%: Reviewed - Qtc Review QTc: N/A - IV to PO Switch IV Medications: Reviewed (PO meds are currently on hold as pt. is NPO) - Home Meds Home Med List reviewed: Reviewed Relevent Home Meds Not ordered & why?: calcium, celecoxib, cholecalciferol (NPO) - Current meds Current Medication Order Review: Reviewed - Comments Comments/Follow Ups: Watch VS, mag, K+, labs and for med changes (IV to PO once no longer NPO, possible renal dose adjustments).
[2022-07-26 12:39] VITALS: BP 121/66; PULSE 81; RESP 15; TEMP 37.3; O2SAT 92
[2022-07-26] MEDS: Potassium Chloride 20 MEQ TABCR 40 MEQ PO (15:27)
[2022-07-26] MEDS: Magnesium Oxide 400 MG TAB PO (15:27)
[2022-07-26 15:34] VITALS: BP 131/75; PULSE 85; RESP 16; TEMP 37; O2SAT 95
--- NOTE | 2022-07-26 15:38 | CHAPLAIN ---
Sherly was up in the chair when I visited and happy to tell me that she's feeling much better after having surgery yesterday. She said the surgery went well and she hopes to start having liquids soon. She's been here six days and is relieved to be feeling better. Family members continue to visit. Sherly said that part, having family members visit has been very nice.
--- NOTE | 2022-07-26 16:13 | W.PM.PROGNOT ---
Date of Service Date of service: 07/26/22 Time of Service: 16:14 Assessment and Plan Assessment and plan (1) Partial small bowel obstruction: Status: Acute Assessment and plan: I removed her nasogastric tube this morning, and I think it is okay if she starts to have some sips of clear liquids. She has been up and ambulating, and I think she should continue this. I will replete her magnesium and potassium today. Hopefully, we can get her diet advanced a bit within the next 24 hours and supplement her proteins to help compensate for some mild malnutrition that she is likely developed over the past week. Subjective Subjective Interval history since last seen: Sherly looks much better this morning, and says she already feels relief of her abdominal discomfort and bloating. She is passing some flatus through the night, but has not yet had a bowel movement. She does not have much appetite, but she is interested in advancing to liquids. Exam GI Inspection: normal to inspection and distended (Minimal abdominal distention. Less than yesterday.) Palpation: soft, no guarding and nontender Percussion: tympanic to percussion Other: Bandage sites are clean. Objective Last Vital Signs Temp 98.6 F 07/26/22 15:34 Pulse 85 07/26/22 15:34 Resp 16 07/26/22 15:34 BP 131/75 07/26/22 15:34 Pulse Ox 95 07/26/22 15:34 Laboratory Results - last 24 hr 07/26/22 07/26/22 06:25 06:25 WBC 11.45 H RBC 3.41 L Hgb 10.7 L Hct 31.5 L MCV 92 MCH 31.4 MCHC 34.0 RDW 13.4 Plt Count 441 H MPV 8.9 Immature Gran % 0.8 Neutrophils % 77.8 Lymphocytes % 14.5 Monocytes % 6.5 Eosinophils % 0.2 Basophils % 0.2 Nucleated RBC % 0.0 Absolute Neutrophils 8.91 H Absolute Lymphocytes 1.66 Absolute Monocytes 0.74 Absolute Eosinophils 0.02 Absolute Basophils 0.02 Sodium 138 Potassium 3.0 L Chloride 102 Carbon Dioxide 26.4 Anion Gap 9.6 BUN 17 Creatinine 0.8 Est GFR (CKD-EPI 2020) 75.37 Glucose 108 H Calcium 8.1 L Magnesium 1.7 L
[2022-07-26 22:39] VITALS: BP 110/75; PULSE 93; RESP 17; TEMP 37; O2SAT 96
[2022-07-27] MEDS: Normal Saline Flush 10 ML SYR IVP ×6 (01:10→17:53)
[2022-07-27] MEDS: Metoclopramide 10 MG/2 ML VIAL IVP ×3 (07:05→17:53)
[2022-07-27 07:07] LABS: Abs Immature Grans 0.07 10^3/uL (0.0-0.06); Absolute Basophil Count 0.03 10^3/uL (0.0-0.2); Absolute Lymphocyte Count 1.32 10^3/uL (1.2-3.4); Absolute Monocyte Count 0.65 10^3/uL (0.1-0.8); Absolute Neutrophil Count 6.57 10^3/uL (1.2-6.7); Basophils % 0.3; Eosinophils % 2.3; HCT 30.3 % (36.0-46.0); HGB 10.3 g/dL (11.2-15.7); Immature Grans % 0.8; Lymphocytes % 14.9; MCH 31.4 pg (27.0-33.0); MCV 92 fL (80-95); MPV 9.3 fL (8.0-11.0); Monocytes % 7.4; Neutrophils % 74.3; Platelet Count 387 10^3/uL (130-400); RBC 3.28 10^6/uL (3.93-5.22); RDW 13.8 % (11.7-14.6); RDW-SD 45.7 fL; WBC 8.84 10^3/uL (4.4-10.8)
--- NOTE | 2022-07-27 07:12 | W.PM.PROGNOT ---
Date of Service Date of service: 07/27/22 Time of Service: 07:00 Assessment and Plan Assessment and plan (1) Ileus: Status: Acute Assessment and plan: Sherly is postop day #1 status post exploration which was done laparoscopically. She had dilated small intestine basically from the ligament of Treitz down to the terminal ileum. There is no obstruction noted. There was an adhesion of the large intestine to the peritoneum. These adhesions were taken down. There is a lot of air within the colon as well. Operatively this looked more like a severe ileus than anything else. There is minimal if any peristalsis noted. She has been tolerating clear liquids. I am concerned because she is still distended. I have discussed with Sherly that I will start her on Reglan to see if I can get her bowel to start working more properly. As she is tolerating clear liquids I will have nursing give her Ensure clear at least a couple times a day to get her a little bit more nutrition. She is coming up on a week without proper nutrition. I think that if she is unable to eat in the next day or so she should be started on TPN. Subjective Subjective Interval history since last seen: Mrs Pagan is feeling well and is tolerating a clear liquid diet. She states that she continues to pass gas and has had a small bowel movement. No fevers overnight. Exam Const General: cooperative, comfortable and no acute distress Resp Effort & Inspection: normal respiratory effort Auscultation: clear to auscultation bilaterally Cardio Rate: regular rate Rhythm: regular rhythm GI Inspection: distended and incision (c/d/i) Palpation: soft, no hepatosplenomegaly and nontender Auscultation: hypoactive bowel sounds Objective Last Vital Signs Temp 98.6 F 07/26/22 22:39 Pulse 93 H 07/26/22 22:39 Resp 17 07/26/22 22:39 BP 110/75 07/26/22 22:39 Pulse Ox 96 07/26/22 22:39 Laboratory Results - last 24 hr 07/26/22 06:25 WBC 11.45 H RBC 3.41 L Hgb 10.7 L Hct 31.5 L MCV 92 MCH 31.4 MCHC 34.0 RDW 13.4 Plt Count 441 H MPV 8.9 Immature Gran % 0.8 Neutrophils % 77.8 Lymphocytes % 14.5 Monocytes % 6.5 Eosinophils % 0.2 Basophils % 0.2 Nucleated RBC % 0.0 Absolute Neutrophils 8.91 H Absolute Lymphocytes 1.66 Absolute Monocytes 0.74 Absolute Eosinophils 0.02 Absolute Basophils 0.02
[2022-07-27 07:18] LABS: Anion Gap 5.1 mmol/L (3-11); BUN 10 mg/dL (7-18); CO2 27.9 mmol/L (21.0-32.0); CREATININE 0.5 mg/dL (0.55-1.02); Chloride 104 mmol/L (98-107); Estimated GFR 95.94 (mL/min/1.73m2); Glucose 101 mg/dL (74-106); Magnesium 1.5 mg/dL (1.8-2.4); Potassium 3.3 mmol/L (3.5-5.1); Sodium 137 mmol/L (136-145)
[2022-07-27] MEDS: Enoxaparin 40 MG/0.4 ML SYR SC (08:07)
[2022-07-27] MEDS: Aspirin 81 MG CHEW PO (08:07)
[2022-07-27] MEDS: Pantoprazole 40 MG TABCR PO (08:07)
[2022-07-27 08:08] VITALS: BP 125/71; PULSE 92; RESP 17; TEMP 37.4; O2SAT 96
[2022-07-27] MEDS: DEXTROSE 5%-0.45% SALINE 1,000 ML 75 ML IV (09:52)
[2022-07-27] MEDS: cefTRIAXone 2 GM/50 ML BAG IVPB (09:53)
--- NOTE | 2022-07-27 11:05 | PDOC.CMPRO ---
- If Service Date Differs Date of service: 07/27/22 Time of Service: 11:05 Care Management Progress Note S/O: Sherly was sitting up in bed reading when CM met with her. She stated that she expects the MD to talk with her soon about her plan. She stated that she is waiting for my body to work, and her understanding of her discharge plan is that once she is fully functional she will be ready to return home. She reported that she is very happy with her care at [facility], and is looking forward to returning home once she is well enough. Per report, her diet is being advanced slowly. CM will continue to follow. A: Sherly is a 76 year old female admitted to [facility] on 07/21/22 with a SBO. P: Sherly will likely return home once medically cleared. She will be driven home via private vehicle. She will follow up with her PCP and discharge plan of care. CM will continue to follow.
[2022-07-27] MEDS: Magnesium Oxide 400 MG TAB PO (14:44)
[2022-07-27 15:19] VITALS: BP 118/71; PULSE 102; RESP 17; TEMP 37.5; O2SAT 97
[2022-07-27] MEDS: Melatonin 3 MG TAB PO (21:53)
[2022-07-27 22:40] VITALS: BP 122/71; PULSE 100; RESP 20; TEMP 38.2; O2SAT 96
[2022-07-27] MEDS: Acetaminophen 500 MG TAB 1000 MG PO (22:46)
[2022-07-27 23:51] VITALS: TEMP 36.5
[2022-07-28] MEDS: Metoclopramide 10 MG/2 ML VIAL IVP ×4 (00:05→20:01)
[2022-07-28] MEDS: Normal Saline Flush 10 ML SYR IVP ×5 (00:06→20:02)
[2022-07-28 07:22] VITALS: BP 122/78; PULSE 88; RESP 14; TEMP 36.7; O2SAT 92
[2022-07-28] MEDS: Pantoprazole 40 MG TABCR PO (07:32)
[2022-07-28] MEDS: Enoxaparin 40 MG/0.4 ML SYR SC (08:19)
[2022-07-28] MEDS: Aspirin 81 MG CHEW PO (08:20)
--- NOTE | 2022-07-28 10:00 | PGE_ITS ---
Date of Service Date of service: 07/28/22 Time of Service: 10:00 Assessment and Plan Assessment and plan (1) Ileus: Status: Acute Assessment and plan: Patient has been tolerating clears and doing well with Reglan. Advance to full liquids lactose intolerant. Continue ambulation Continue supportive care Hopefully discharge Monday or Monday Activity as allowed per orthopedics. No lifting over 5 pounds for 3 to 4 weeks from a general surgical standpoint (2) S/P hip replacement: Status: Acute (3) Sjogrens syndrome: Status: Chronic (4) Disorder of salivary gland: Status: Acute (5) Lactose intolerance: Status: Acute Subjective Subjective Interval history since last seen: Pt is doing well. no headaches. No CP or SOB. no productive cough. no dysuria. no leg pain or swelling. She had a bowel movement today. She is tolerating clear liquids. She is ambulatory with her hip without difficulty or significant pain. Exam Narrative Exam Narrative: PHYSICAL EXAM GENERAL APPEARANCE: Alert, healthy appearance, oriented, x 3,? in no acute distress HYDRATION: Well hydrated HEAD, EYES, EARS, NECK, THROAT: Head is normocephalic, pupils equal, round, reactive to light and accommodation, ocular movement intact, sclera clear and no jaundice. ?Dentition intact. No sore throat.? No jaw pain. No thrush LUNGS: normal respiration/normal chest excursion. ?Clear to auscultation bi laterally. ?No R/R/W ?HEART: Regular rate and rhythm. no murmurs EXTREMITY: No edema or cyanosis.? no leg pain, redness, swelling.? No IV infiltration ABDOMEN: soft and non-tender to palpation.? Normal bowel sounds.? No hernias.? Both her surgical incision and her orthopedic incision are clean dry and intact. She is some mild edema around the superior portion of the orthopedic incision, but this is normal postoperative swelling. There are no hematomas. Objective Last Vital Signs Temp 36.7 C 07/28/22 07:22 Pulse 88 07/28/22 07:22 Resp 14 07/28/22 07:22 BP 122/78 07/28/22 07:22 Pulse Ox 92 07/28/22 07:22
[2022-07-28] MEDS: cefTRIAXone 2 GM/50 ML BAG IVPB (10:17)
--- NOTE | 2022-07-28 10:44 | DSE_ITS ---
Date of service: 07/29/22 Time of Service: 13:12 DS: Diagnosis Discharge Diagnosis (1) Ileus: Status: Acute (2) S/P hip replacement: Status: Acute (3) Sjogrens syndrome: Status: Chronic (4) Disorder of salivary gland: Status: Acute (5) Lactose intolerance: Status: Acute Discharge Plan Disposition Patient Disposition: HOME Condition: Improving Discharge Details Reason For Visit: Small Bowel Obstruction Admit Date/Time: 07/21/22 07:59 Admit Provider: Miguelito Jimenez Attending Provider: Miguelito Jimenez Primary Care Provider: Albina Canales [facility] Course Hospital Course: see addendum Home Meds and New Rx's Prescriptions: No Action tumeric capsule 1 cap PO BID cholecalciferol (vitamin D3) 1,000 UNIT tablet 1,000 unit PO DAILY calcium carbonate [Calcium 600] 600 MG tablet 600 mg PO DAILY cod liver oil 118 ML oil 118 ml PO DAILY Probiotic 1 EACH capsule 1 ea PO DAILY celecoxib 200 mg capsule 200 mg PO BID Qty: 60 3RF aspirin 81 mg tablet,delayed release (DR/EC) 81 mg PO BID Qty: 60 0RF acetaminophen 500 mg tablet 1,000 mg PO TID Qty: 90 3RF pantoprazole 40 mg tablet,delayed release (DR/EC) 40 mg PO DAILY Qty: 30 0RF Discharge Instructions Additional Instructions: Keep an ice bag on the incision. 20 minutes on and 20 minutes off. Ice keeps the swelling down and swelling causes pain. Make sure you wrap the ice pack in a towel and don't apply directly to the skin. -No driving x1 week or of you are taking pain medications. -Do Not remove any steri tapes (white tapes) that cover the incision. If you have steri-tapes on your incision, do not use antibacterial ointment. -Follow-up with Dr. Jimenez on 08/03 at 11:16 -Follow-up with Dr. Bender on 08/08 as previously scheduled -soft diet: No beef/pork raw vegetables x1 -week. Cooked vegetables are fine x1 week -no straining to move bowels -pain meds are very constipating: if you do not move your bowels daily take a dose of OTC milk of magnesia -It is ok to shower. No bathe, soaking, swimming or hot tubs -Keep wound clean and dry. Wash incision with soap and water daily. Pat dry, don't rub. -If you do not have steri-tapes on your incision, than keep the wound covered with a gauze and antibacterial ointment. -Protein supplements daily. You may find that your appetite is smaller. Eat 3-6 small meals throughout the day. It is important to drink lots of water after surgery, 6-10 glasses a day. -continue to do your incentive spirometry 10x/hour while awake. -We do want you up walking, at least 5-6 times per day. This is very important to prevent pneumonia and blood clots. You can climb stairs, take them slowly. -No lifting over 5 pounds. This is very important to avoid developing a hernia in your incision. -There are no restrictions on activity from an orthopedic standpoint, per Dr. Bender. -You may find that you are very tired after surgery- this is normal. Gastrointestinal Soft Diet Overview Overview What is a gastrointestinal soft diet? This diet is soft in texture, low in fiber, and easy to digest. The goal is to decrease) ?in the bowel that may cause and discomfort. This diet is often used after abdominal surgery or as a transitional diet after flares. Meats & Meat Substitutes ? Foods Allowed: Chicken, turkey, fish, tender cuts of beef and pork, ground meats, eggs, creamy nut butters, tofu, skinless hot dogs, sausage patties without whole spices ? Foods to Avoid : Tough, fibrous meats with gristle, meat with casings (hot dogs, sausage, kielbasa), lunch meats with whole spices, shellfish, beans, chunky peanut butter, nuts Fruits and Juices ? Foods Allowed: Fruit juices without pulp, banana, avocado, applesauce, canned peaches and pears, cooked fruit without the skin/seeds.? Ground or over- cooked fruits.? Fruits ground finely in a ?smoothie?. ? Foods to Avoid: Juices with pulp, fresh fruit (except banana and avocado), dried fruits, canned fruit cocktail and pineapple, coconut, frozen/thawed berries Vegetables ? Foods Allowed: Well-cooked or canned vegetables, potatoes without skin, tomato sauces, vegetable juice ? Foods to Avoid: Raw vegetables, all corn, all mushrooms, stewed tomatoes, potato skins, stir-mendoza vegetables, sauerkraut, pickles, olives, all dried beans, peas, and legumes Cereals and Grains ? Foods Allowed: Low- fiber dry or cooked cereals (less than 2 grams fiber per serving), white rice, pasta, macaroni, or noodles ? Foods to Avoid: Cereals with nuts, berries, dried fruits, whole grain cereals, bran cereals, granola, brown or wild rice, whole grain pasta Breads and Crackers ? Foods Allowed: White/refined breads and rolls, plain bagel, toast, plain crackers, linette crackers ? Foods to Avoid: Whole grain breads- including white whole grain; bread/ rolls with raisins, nuts or seeds, multi-grain crackers Dairy ? Foods Allowed: Milk, cheese, yogurt, milkshakes, pudding, ice cream, cottage cheese, sherbet ;?lactose free or low lactose versions if lactose intolerant ? Foods to Avoid: Dairy product mixed with fresh fruit (except banana), berries, nuts or seeds Desserts ? Foods Allowed: Plain cake, pudding, custard, ice cream, sherbet, gelatin, fruit whips ? Foods to Avoid: Any dessert that contains nuts, dried fruits, coconut, or fruits with seeds Herbs and Spices ? Foods Allowed: All ground spices or herbs, salt ? Foods to Avoid: Whole spices such as peppercorns, whole cloves, anise seeds, celery seeds, darinel, david seeds, and fresh herbs Snacks/Other Foods ? Foods Allowed: Sugar, honey, jelly, mayonnaise, mustard, soy sauce, oil, butter, margarine, marshmallows, cookies without dried fruits or nuts, snack chips and pretzels using refined flours ? Foods to Avoid: Carbonated beverages, jams or jellies with seeds, popcorn After several weeks, slowly start to reintroduce the ?Foods to Avoid? back into your diet unless your doctor has told you otherwise. Try a small portion of one of these foods each day. If it does not bother you within 24 hours, it can be added to your diet. Continue to add new foods in this way. Some people may continue to have food sensitivities and may need to continue to avoid certain foods. If you cannot tolerate a food, avoid that food for a few weeks before you try it again. Guidelines when eating 1.??? Avoid any food that you cannot tolerate or that causes gas, bloating, or stomach pain. 2.??? Make time for your meals. Do not eat while you are in a hurry. Cut your food into small pieces. Chew each bite to a mashed potato consistency. Do not eat when you cannot concentrate on chewing well. 3.??? Drink at least 6-8 cups of fluid per day? Fluids include: water, coffee, tea, juice, milk, popsicles, soups, gelatin, pudding, ice cream, sherbet, and yogurt. In addition, choose caffeine-free beverages more often, especially if you are having?diarrhea. 4.??? A daily multivitamin may be recommended if diet is limited in amounts or variety of foods. Do not take any herbal supplements without first checking with your doctor. Stand Alone Forms: Nursing Discharge Form Referrals: Miguelito Jimenez MD [ [facility]YSICIAN] - 08/03/22 11:15 am Activity:: Activity as Tolerated Equipment/Supplies:: No Equipment Needed Diet:: see above Discharge Orders Discharge Orders: Discharge Order (Routine); Ordered 07/29/22 Ordered By: Tess Funes DS: Summary Time Spent with Patient providing and/or coordinating discharge services: Greater than 30 minutes Status at Discharge Functional status at discharge: uses cane/walker Overall status at discharge: patient is back to baseline Mental Status: mental status grossly normal Speech and Movement: speech and movement normal Mood: congruent mood Affect: normal affect Exam Psych Mental Status: mental status grossly normal Speech and Movement: speech and movement normal Mood: congruent mood Affect: normal affect DS: Data Vitals/I&O Vitals and I&O: Vital Signs Temperature 36.7 C 07/28/22 07:22 Temperature Source Tympanic 07/28/22 07:22 Pulse 88 07/28/22 07:22 Pulse Rhythm Regular 07/28/22 08:48 Pulse 79 07/21/22 09:01 Respiratory Rate 14 07/28/22 07:22 Respiratory Effort Non-Labored 07/28/22 08:48 Respiratory Depth Normal 07/28/22 08:48 Respiratory Pattern Normal 07/28/22 08:48 Blood Pressure 122/78 07/28/22 07:22 Blood Pressure Mean 80 07/21/22 09:01 Blood Pressure Position Supine 07/21/22 04:16 Pulse Oximetry 92 07/28/22 07:22 Respiratory End-tidal CO2 27 07/25/22 15:45 Oxygen Delivery Method Room Air 07/28/22 07:22 Oxygen Flow Rate 0 07/28/22 07:22 Pain Level 0 07/28/22 07:22 Comment 07/27/22 11:33 Intake & Output 07/27/22 07/27/22 07/28/22 11:59 23:59 11:59 Intake Total 2501.25 / 2835.00 333.75 / 2835.00 500 / 500 Output Total 1050 / 1500 450 / 1500 Balance 1451.25 / 1335.00 -116.25 / 1335.00 500 / 500 Intake: IV 1061.25 / 1395.00 333.75 / 1395.00 Oral 1440 / 1440 500 / 500 Output: Urine 1050 / 1500 450 / 1500 Other: Urine Color Yellow Pale Yellow Urine Appearance Clear Clear Clear Urine Odor Normal None Comment Void x1 in the toilet. Stool Size Small Moderate Stool Characteristics Formed Soft Liquid Voiding Methods Toilet Toilet PFSH All Active Problems (Updated 07/28/22 @ 10:42 by Tess Funes DO) Lactose intolerance (Acute) Ileus (Acute) S/P hip replacement (Acute) left POD#10 Sjogrens syndrome (Chronic) Disorder of salivary gland (Acute 06/26/12) Localized primary osteoarthritis of lower leg (Acute 01/08/13) R KNEE; H/O ACL SURG ; RX PT Other malaise and fatigue (Acute 06/26/12) Tendinitis of left rotator cuff (Acute) Bilateral tinnitus (Acute 11/21/19) [place] Sensorineural hearing loss of combined sites, bilateral (Chronic) Female bladder prolapse, acquired (Acute) 02/27/20 [facility] Non-restorative sleep (Acute) Dysphagia (Acute) Sensorineural hearing loss, bilateral (Acute) Degenerative joint disease of left hip (Acute) Degenerative joint disease of right hip (Acute) Medical History Fracture of femoral neck, left (11/16/14) Fracture, intertrochanteric, right femur History of COVID-2019 Hx of fracture of hip Hx of tear of ACL (anterior cruciate ligament) right Surgical History H/O surgical procedure a. hysterectomy b. ACL repair right knee Hx of cholecystectomy Hx of right knee surgery acl Oophrectomy, Both with hyst Vaginal hysterectomy 2001 for prolapse Family History Mother , Alzheimers at age 89. Breast cancer Grandmother Colon cancer MGM Father No problems noted. Social History Smoking/Tobacco Use Status: Never Smoking risk assessment performed?: Yes Alcohol Intake: never Drug use: Never Substance use type: does not use Household members: spouse Housing: house What is your relationship status?: Panel score (0-1 are the most socially isolated patients): 1 What type of physical activity do you participate in: regular exercise Seatbelt use: always Drive intox or ride w/intox package car driver: No Working smoke detector in home: Yes Fire extinguisher in home: Yes Carbon monox detector in home: Yes Do you feel safe at home: Yes Do you feel safe in your relationship?: Yes
[2022-07-28 14:56] VITALS: BP 110/67; PULSE 88; RESP 16; TEMP 37.3; O2SAT 96
--- NOTE | 2022-07-28 15:14 | PDOC.CMPRO ---
- If Service Date Differs Date of service: 07/28/22 Time of Service: 15:14 Care Management Progress Note S/O: Sherly was lying in bed when CM met with her. She stated that her diet is being advanced to full liquids today. She is happy that the plan is to slowly advance her diet to help her recovery be more successful. She is happy with her care at [facility]. She stated that per MD, she will likely be returning home in the next day or two. CM will continue to follow. A: Sherly is a 76 year old female admitted to [facility] on 07/21/22 with a SBO. P: Sherly will likely return home once medically cleared. She will be driven home via private vehicle. She will follow up with her PCP and discharge plan of care. CM will continue to follow.
[2022-07-28] MEDS: Melatonin 3 MG TAB PO (20:45)
[2022-07-28 22:45] VITALS: BP 104/66; PULSE 90; RESP 16; TEMP 37.5; O2SAT 93
[2022-07-29] MEDS: Metoclopramide 10 MG/2 ML VIAL IVP ×2 (01:37→11:48)
[2022-07-29] MEDS: Normal Saline Flush 10 ML SYR IVP ×2 (01:38→11:48)
[2022-07-29 07:16] VITALS: BP 105/59; PULSE 88; RESP 16; TEMP 37.1; O2SAT 94
[2022-07-29] MEDS: Polyethylene Glycol 3350 17 GM PACKET PO (08:24)
[2022-07-29] MEDS: Aspirin 81 MG CHEW PO (08:24)
[2022-07-29] MEDS: Potassium Chloride 10 MEQ CAPCR 40 MEQ PO (08:24)
[2022-07-29] MEDS: Enoxaparin 40 MG/0.4 ML SYR SC (08:24)
[2022-07-29] MEDS: Pantoprazole 40 MG TABCR PO (08:24)
[2022-07-29] MEDS: Magnesium Oxide 400 MG TAB 800 MG PO (08:24)
[2022-07-29] MEDS: cefTRIAXone 2 GM/50 ML BAG IVPB (09:36)
--- NOTE | 2022-07-29 13:14 | W.PM.PROGNOT ---
Date of Service Date of service: 07/29/22 Time of Service: 13:14 Assessment and Plan Assessment and plan (1) Lactose intolerance: Status: Acute (2) Ileus: Status: Resolved Assessment and plan: resolved see d/c instructions/orders (3) S/P hip replacement: (4) Sjogrens syndrome: Status: Chronic (5) Disorder of salivary gland: Status: Acute Subjective Subjective Interval history since last seen: Pt is doing well. no headaches. No CP or SOB. no productive cough. no dysuria. no leg pain or swelling. She is tolerating po's w/out nausea. She is having formed BM. no fevers. No abdominal pain/distention. She is up walking. Exam Narrative Exam Narrative: L: CTA b/l C: NSR Abdom: incisions are c/d/i hip incision is c/d/i. marco were removed. no swelling or redness or calf pain Objective Last Vital Signs Temp 37.1 C 07/29/22 07:16 Pulse 88 07/29/22 07:16 Resp 16 07/29/22 07:16 BP 105/59 L 07/29/22 07:16 Pulse Ox 94 07/29/22 07:16
--- NOTE | 2022-07-29 13:22 | PDOC.CMDIS ---
- If Service Date Differs Date of service: 07/29/22 Time of Service: 13:22 LACE Index Scoring Tool - Questions: Length of Stay (in days): 7 - 13 Acuity (Admit via E.D.?): Yes E.D. Visits: 1 - Answers: Total Score: 9 Risk of Readmission: Low Risk Care Management Discharge Reason for Hospitalization: small bowel obstruction Discharge Plan: Sherly will return home today with no new services. CM discussed services with Sherly, and she stated that she is well supported at home and does not feel that she requires any services at this time. Her family will drive her home via private vehicle. She will follow up with her PCP and discharge plan of care. She is happy to be going home. Patient/Family Education Needs: Review discharge instructions and limitations, discussion of self care needs including ask me three.
== END 2022-07-29 15:52 | disposition home or self-care (01) | DRG 337 ==
LOC: ER 08:37 → MS 10:57
PROVIDERS: Surgery; Admitting Provider Surgery; Emergency Provider Emergency Medicine; PCP Family Medicine; Visit Provider Surgery
PROC: 0DNK4ZZ Release Ascending Colon, Percutaneous Endoscopic Approach (ICD-10-PCS; CPT 49320; principal; 2022-07-25 13:30)
DX: K56.7 Ileus, unspecified (principal); M35.00 Sjogren syndrome, unspecified; H90.3 Sensorineural hearing loss, bilateral; M16.0 Bilateral primary osteoarthritis of hip; K43.9 Ventral hernia without obstruction or gangrene; K11.9 Disease of salivary gland, unspecified; E73.9 Lactose intolerance, unspecified
CPT/HCPCS: 44180; 36415; 80048; 80053; 83690; 87493; 87635; 96361; 96374; 96375; 96376; 99222; 99231; 99232; 99233; 99285; J1650; 71045; 74018; 74019; 74177; 83735; 85025; 94667; J0131; J1100; J1885; J2270; J2405; J2704; J2765; J3480; J3490

== ENCOUNTER → 2022-08-03 11:13 | Outpatient (BNVA) | payer MEDICARE, OTHER, SELFPAY | PROVIDERS: PCP Family Medicine; Referring Provider Family Medicine; Visit Provider Surgery | DX: Z48.815 Encounter for surgical aftercare following surgery on the digestive system (principal) ==

== ENCOUNTER 2022-08-08 11:26 | Outpatient (CLI) | payer MEDICARE, OTHER, SELFPAY ==
--- NOTE | 2022-08-08 11:15 | DI.RAD_ITS ---
Exam(s) XR HIP LT COMPLETE AP PELVIS EXAM: XR HIP LT COMPLETE AP PELVIS INDICATION: 1ST POST OP L HARJIT. COMPARISON: CR XR HIP LT COMPLETE AP PELVIS from 05/27/2022 CR XR HIP RT 1V from 05/27/2022 XA XR HIP LT IN OR from 07/12/2022 CR XR ABDOMEN FLAT UPRIGHT from 07/25/2022 TECHNIQUE: 2D digital imaging was performed. Three views. FINDINGS: There has been no change in the alignment of the left hip prosthesis. There are no suspicious surrou nding lucencies. Eight compression screw is again noted in the proximal right femur. Moderate degen erative changes of the right hip. SI joints unremarkable. IMPRESSION: Stable appearance of bilateral hardware. DATA REPOSITORY: RADIATION DOSE DELIVERED:
== END 2022-08-08 11:27 | disposition home or self-care (01) ==
LOC: DIORS 11:27
PROVIDERS: PCP Family Medicine; Referring Provider Family Medicine; Visit Provider Physician Assistant
DX: Z96.642 Presence of left artificial hip joint (principal); Z47.1 Aftercare following joint replacement surgery
CPT/HCPCS: 73502

== ENCOUNTER → 2022-09-23 09:07 | Outpatient (BNVA) | payer MEDICARE, OTHER, SELFPAY | PROVIDERS: PCP Family Medicine; Referring Provider Family Medicine; Visit Provider Student in an Organized Health Care Education/Training Program | DX: Z47.1 Aftercare following joint replacement surgery (principal); Z96.642 Presence of left artificial hip joint ==

== ENCOUNTER 2023-07-07 19:16 | Outpatient (REF) | payer MEDICARE, OTHER, SELFPAY ==
[2023-07-07 21:35] LABS: ALT 24 U/L (14-59); AST 23 U/L (15-37); Albumin 3.3 g/dL (3.4-5.0); Alkaline Phosphatase 54 U/L (46-116); BUN 18 mg/dL (7-18); Bilirubin, Total 0.2 mg/dL (0.2-1.0); CREATININE 0.6 mg/dL (0.55-1.02); Calcium 9.1 mg/dL (8.5-10.1); Chloride 103 mmol/L (98-107); Estimated GFR 91.25 (mL/min/1.73m2); Glucose 79 mg/dL (74-106); Sodium 137 mmol/L (136-145); Total Protein 6.8 g/dL (6.4-8.2)
== END 2023-07-07 19:17 | disposition home or self-care (01) ==
LOC: LBN 19:16
PROVIDERS: PCP Family Medicine; Visit Provider Physician Assistant Medical
DX: R42 Dizziness and giddiness (principal)
CPT/HCPCS: 80053

== ENCOUNTER 2023-07-14 10:14 | Outpatient (CLI) | payer MEDICARE, OTHER, SELFPAY ==
--- NOTE | 2023-07-14 10:08 | DI.RAD_ITS ---
Exam(s) XR HIP LT AP LAT ONLY EXAM: XR HIP LT AP LAT ONLY INDICATION: ANNUAL F/U S/P L HARJIT. COMPARISON: CR XR HIP LT COMPLETE AP PELVIS from 08/08/2022 TECHNIQUE: 2D digital imaging was performed. Two views. FINDINGS: There has been no change in the alignment of the left hip prosthesis. No abnormal surrounding bony l ucencies. DATA REPOSITORY: RADIATION DOSE DELIVERED:
== END 2023-07-14 10:15 | disposition home or self-care (01) ==
LOC: DIORS 10:14
PROVIDERS: PCP Family Medicine; Referring Provider Family Medicine; Visit Provider Student in an Organized Health Care Education/Training Program
DX: Z47.1 Aftercare following joint replacement surgery (principal); Z96.642 Presence of left artificial hip joint
CPT/HCPCS: 99213; 73502

== ENCOUNTER 2023-07-27 09:36 | Outpatient (RCR) | payer MEDICARE, OTHER, SELFPAY ==
--- NOTE | 2023-07-27 13:00 | HOLTER_ITS ---
APPROVED REPORT Conclusion This is a 48-hour Holter monitor ordered for palpitations Rhythm throughout was sinus with an average heart rate of 78. Minimum was 60, maximum 101 There were rare ventricular ectopic beats There were very rare atrial premature beats There was no atrial fibrillation, no SVT, no high-grade AV block, no pauses greater than 3 seconds Patient symptoms were reported which could not be correlated to any dysrhythmia
== END 2023-08-17 23:59 | disposition home or self-care (01) ==
LOC: CARDOPNVT 09:36
PROVIDERS: PCP Family Medicine; Visit Provider Family Medicine
DX: R00.2 Palpitations (principal)
CPT/HCPCS: 93227; 93225; 93226

== ENCOUNTER 2023-08-14 15:33 | Outpatient (REF) | payer MEDICARE, OTHER, SELFPAY ==
[2023-08-14 18:49] LABS: HGB 12.3 g/dL (11.2-15.7); MCH 30.2 pg (27.0-33.0); MCHC 34.2 % (32.0-36.0); MCV 89 fL (80-95); MPV 10.3 fL (8.0-11.0); Platelet Count 287 10^3/uL (130-400); RBC 4.07 10^6/uL (3.93-5.22); RDW 13.3 % (11.7-14.6); RDW-SD 43.8 fL; WBC 5.61 10^3/uL (4.4-10.8)
== END 2023-08-14 15:34 | disposition home or self-care (01) ==
LOC: NCHCN 15:33
PROVIDERS: PCP Family Medicine; Visit Provider Family Medicine
DX: D64.9 Anemia, unspecified (principal)
CPT/HCPCS: 85027

== ENCOUNTER → 2023-08-16 17:24 | Outpatient (CLI) | payer MEDICARE, OTHER, SELFPAY ==
--- NOTE | 2023-08-16 | DI.RAD_ITS ---
Exam(s) XR WRIST LT COMPLETE EXAM: XR WRIST LT COMPLETE CLINICAL HISTORY: Pain of left wrist. TECHNIQUE: 2D digital imaging was performed. COMPARISON: No exams were available for comparison FINDINGS: 3 views No evidence of acute fracture or dislocation nor significant ulnar variance. Bone density is age-qasim ropriate. Moderate-advanced degenerative changes are noted In the 1st carpometacarpal joint. Other articulations appear unremarkable. No osseous lesions. IMPRESSION: Significant degenerative changes at the 1st carpometacarpal joint. This is the articulation between the thumb metacarpal and the trapezium of the distal carpal row. DATA REPOSITORY: RADIATION DOSE DELIVERED:
== END ==
PROVIDERS: PCP Family Medicine; Visit Provider Physician Assistant Medical
DX: M18.12 Unilateral primary osteoarthritis of first carpometacarpal joint, left hand (principal)
CPT/HCPCS: 73110

== ENCOUNTER → 2024-02-22 04:06 | Outpatient (CLI) | payer MEDICARE, OTHER, SELFPAY ==
--- NOTE | 2024-02-22 | DI.MAMMO_ITS ---
Exam(s) MAMMO SCREENING EXAM: MAMMO SCREENING CLINICAL HISTORY: Z12.31 Screening. TECHNIQUE: Bilateral full field digital CC and MLO mammographic images were obtained with 3D tomosyn thesis and utilizing computer aided detection (CAD). COMPARISON: Prior mammograms were reviewed. FINDINGS: There has been no significant change in the appearance and distribution of the fibroglandular tissue. There are no new spiculated masses nor malignant appearing microcalcification groups. There is no significant architectural distortion nor skin thickening-retraction. IMPRESSION: No radiographic evidence of malignancy. BI-RADS Category 1 - Negative Breast Density - Category C - Heterogeneously dense Breast density Category C or D implies that the patient has dense breast tissue. Dense breast tissue can make it harder to find cancer on a mammogram. Dense breast tissue is also associated with an incr eased risk of breast cancer. This information about the result of the mammogram report was provided to the patient to raise their awareness. Use this report when you speak with the patient about their risks for breast cancer, which includes their family history. At that time, you may recommend additional screening tests (Ultrasoun d or MRI) as these tests may add significant information. A negative radiographic report should not delay biopsy if a dominant or clinically suspicious mass is present. Up to ten percent of cancers are not identified on mammography. A negative report may reinforce clinical impression. Adenosis and dense breasts may obscure an underlying neoplasm. False positive reports average 6 to 10%. Patient will receive a letter notifying them of these results.
== END ==
PROVIDERS: PCP Family Medicine; Visit Provider Family Medicine
DX: Z12.31 Encounter for screening mammogram for malignant neoplasm of breast (principal); R92.333 Mammographic heterogeneous density, bilateral breasts
CPT/HCPCS: 77063; 77067

== ENCOUNTER 2024-04-18 19:37 | Outpatient (REF) | payer MEDICARE, OTHER, SELFPAY ==
[2024-04-18 16:33] LABS: C Diff PCR Negative (Negative)
[2024-04-19 11:29] LABS: Campylobacter PCR Negative (Negative); Salmonella PCR Negative (Negative); Shiga Toxin PCR Negative (Negative); Shigella/Enteroinvasive Ecoli Negative (Negative)
[2024-04-22 12:44] LABS: Calprotectin <50.0 mcg/g
== END 2024-04-18 19:38 | disposition home or self-care (01) ==
LOC: NCHCN 19:37
PROVIDERS: PCP Family Medicine; Visit Provider Family Medicine
DX: R19.7 Diarrhea, unspecified (principal)
CPT/HCPCS: 87329; 87493; 87505; 83993

== ENCOUNTER 2024-06-06 15:46 | Outpatient (CLI) | payer MEDICARE, OTHER, SELFPAY ==
--- NOTE | 2024-06-06 14:49 | DI.RAD_ITS ---
Exam(s) XR HIP RT AP LAT ONLY EXAM: XR HIP RT AP LAT ONLY CLINICAL HISTORY: DJD R HIP. TECHNIQUE: 2D digital imaging was performed. Two views COMPARISON: CR XR HIP LT COMPLETE AP PELVIS from 08/08/2022 CR XR HIP LT AP LAT ONLY from 07/14/2023 FINDINGS: BONES: No acute fracture is present. No bony destructive lesion is seen. There has been no change i n the compression screw in the proximal left femur. JOINTS: No dislocation present. There is moderate narrowing of the superior hip joint space. There i s periarticular spurring. Right SI joint and pubic symphysis are unremarkable. SOFT TISSUE: Normal. IMPRESSION: Moderate degenerative changes of the right hip. DATA REPOSITORY: RADIATION DOSE DELIVERED:
== END 2024-06-06 15:47 | disposition home or self-care (01) ==
LOC: DIORS 15:46
PROVIDERS: PCP Family Medicine; Referring Provider Family Medicine; Visit Provider Student in an Organized Health Care Education/Training Program
DX: M70.61 Trochanteric bursitis, right hip; M70.62 Trochanteric bursitis, left hip; Z96.642 Presence of left artificial hip joint; S72.001D Fracture of unspecified part of neck of right femur, subsequent encounter for closed fracture with routine healing; X58.XXXD Exposure to other specified factors, subsequent encounter; R53.81 Other malaise
CPT/HCPCS: 99213; 73502

== ENCOUNTER 2024-07-03 20:04 | Outpatient (REF) | payer MEDICARE, OTHER, SELFPAY ==
[2024-07-03 16:35] LABS: C Diff PCR Negative (Negative)
[2024-07-04 15:14] LABS: Campylobacter PCR Negative (Negative); Salmonella PCR Negative (Negative); Shiga Toxin PCR Negative (Negative); Shigella/Enteroinvasive Ecoli Negative (Negative)
[2024-07-06 15:50] LABS: Calprotectin <50.0 mcg/g
== END 2024-07-03 20:05 | disposition home or self-care (01) ==
LOC: NCHCN 20:04
PROVIDERS: PCP Family Medicine; Visit Provider Family Medicine
DX: R19.7 Diarrhea, unspecified (principal)
CPT/HCPCS: 87493; 87505; 83993; 87177

== ENCOUNTER 2024-07-30 02:44 | Outpatient (CLI) | payer MEDICARE, OTHER, SELFPAY ==
--- NOTE | 2024-07-30 13:45 | DI.RAD_ITS ---
Exam(s) XR FOOT LT COMPLETE EXAM: XR FOOT LT COMPLETE CLINICAL HISTORY: Left foot pain,M79.672. TECHNIQUE: 2D digital imaging was performed. Three views. COMPARISON: No exams were available for comparison FINDINGS: BONES: No acute fracture is present. No bony destructive lesion is seen. Mild deformity of 1st metat arsal head likely postsurgical. Small heel spurs. JOINTS: No dislocation present. Mild degenerative changes 1st MTP joint. Degenerative changes also present 2nd and 3rd tarsal metatarsal joints and intertarsal joints. SOFT TISSUE: Normal. IMPRESSION: [id number] degenerative changes. No acute abnormality. DATA REPOSITORY: RADIATION DOSE DELIVERED:
== END 2024-07-30 03:04 ==
LOC: DI 02:44
PROVIDERS: PCP Family Medicine; Visit Provider Podiatrist
DX: M79.672 Pain in left foot (principal)
CPT/HCPCS: 20600; 73630

== ENCOUNTER → 2024-08-27 14:40 | Outpatient (BNVA) | payer MEDICARE, OTHER, SELFPAY | PROVIDERS: PCP Family Medicine; Referring Provider Family Medicine; Visit Provider Podiatrist | DX: M25.572 Pain in left ankle and joints of left foot (principal) | CPT/HCPCS: 99213 ==

== ENCOUNTER 2025-04-29 01:04 | Outpatient (CLI) | payer MEDICARE, OTHER, SELFPAY ==
--- NOTE | 2025-04-29 | DI.MAMMO_ITS ---
Exam(s) MAMMO SCREENING EXAM: MAMMO SCREENING CLINICAL HISTORY: Screening, Z12.31 TECHNIQUE: Mammograms were interpreted according to the usual protocol including computer analysis with CAD system, tomosynthesis and C-view imaging. COMPARISON: 2015 through 2023 FINDINGS: The breasts are composed of heterogeneously dense fibroglandular densities, Breast Density category C. No suspicious masses or suspicious microcalcifications are seen. No skin thickening or abnormal axillary lymph nodes are seen. There has been no significant change from prior exams. IMPRESSION: BI-RADS Category 1, Negative mammogram. Yearly screening mammography is recommended. Breast Density: Category C - The breasts are heterogeneously dense, which may obscure small masses. Breast density Category C or D implies that the patient has dense breast tissue. Dense breast tissue can make it harder to find cancer on a mammogram. Dense breast tissue is also associated with an increased risk of breast cancer. This information about the result of the mammogram report was provided to the patient to raise their awareness. Use this report when you speak with the patient about their risks for breast cancer, which includes their family history. At that time, you may recommend additional screening tests (Ultrasound or MRI) as these tests may add significant information. A negative radiographic report should not delay biopsy if a dominant or clinically suspicious mass is present. Up to ten percent of cancers are not identified on mammography. A negative report may reinforce clinical impression. Adenosis and dense breasts may obscure an underlying neoplasm. False positive reports average 6 to 10%.
== END 2025-04-29 01:24 ==
LOC: DI 01:04
PROVIDERS: PCP Family Medicine; Visit Provider Family Medicine
DX: Z12.31 Encounter for screening mammogram for malignant neoplasm of breast (principal); R92.333 Mammographic heterogeneous density, bilateral breasts
CPT/HCPCS: 77063; 77067

== ENCOUNTER 2025-09-08 18:45 | Emergency (ER) | payer MEDICARE, OTHER, SELFPAY ==
[2025-09-08] VITALS (16 sets, daily range): BP systolic 128–172; BP diastolic 82–91; PULSE 79–95; RESP 16–27; O2SAT 94–98
--- NOTE | 2025-09-08 18:45 | RT.EKG_ITS ---
APPROVED REPORT Exam: Resting ECG Reason for Exam: irregular HR Patient Location: E HR:89 bpm ECG Measurements Heart Rate 89 AXIS CO 172 P 69 QRSd 87 QRS 60 QT 367 T 48 QTc 446 Conclusion Sinus rhythm...normal P axis, V-rate 60- 99 motion artifact, no stemi
--- NOTE | 2025-09-08 18:59 | W.ED.GENAD ---
Discharge Plan Disposition Patient Disposition: Home Condition: Stable Discharge Details Clinical Impression: Palpitations Primary Care Provider: Albina Canales ED Provider: Deepak Alcaraz Home Meds and New Rx's Prescriptions: Continued estradiol [Estrace] 0.01 % (0.1 mg/gram) cream 1 appful vaginal DAILY Rx Instructions: for 14 days No Action tumeric capsule 1 cap PO BID cholecalciferol (vitamin D3) 1,000 UNIT tablet 1,000 unit PO DAILY calcium carbonate [Calcium 600] 600 MG tablet 600 mg PO DAILY cod liver oil 118 ML oil 118 ml PO DAILY Lactobacillus acidophilus [Probiotic] 1 EACH capsule 1 ea PO DAILY acetaminophen 500 mg tablet 1,000 mg PO TID Qty: 90 3RF Discharge Instructions Additional Instructions: You were in a sinus rhythm during your time here and your lab work did not show any concerning findings. If you have recurrent episodes I'd recommend following up with your primary care provider. If you feel more ill or have new symptoms such as difficulty breathing, feel lightheaded or have severe chest pain return to the emergency department for reevaluation. Stand Alone Forms: Portal Information HPI General Mode of arrival: ambulatory. Date/Time Provider Initiated Documentation: 09/08/25 18:46. Limitations to Documentation: no limitations. Information obtained by: patient. History of Present Illness 79 year old F presents to the emergency department with the chief complaint of heart was beating irregularly, described as mild, Patient started experiencing this hour(s) (1) and it has been now resolved. No relieving factors improve symptom(s), No exacerbating factors reported . Patient notes no other symptoms.. Patient did receive the following treatments prior to arrival, none Related Data Home Medications ?Medication ?Instructions ?Recorded ?Confirmed cholecalciferol (vitamin D3) 25 1,000 unit PO DAILY 12/06/12 09/08/25 mcg (1,000 unit) tablet calcium carbonate (Calcium 600) 600 mg PO DAILY 07/25/14 09/08/25 cod liver oil 118 ml PO DAILY 07/25/14 09/08/25 Lactobacillus acidophilus 10 1 ea PO DAILY 10/15/15 09/08/25 billion cell capsule (Probiotic) tumeric 1 cap PO BID 11/10/20 09/08/25 acetaminophen 500 mg tablet 1,000 mg (2 x 500 mg) PO TID #90 07/12/22 09/08/25 tabs estradiol 0.01% (0.1 mg/gram) 1 appful vaginal DAILY 04/20/23 09/08/25 vaginal cream (Estrace) Previous Rx's ?Medication ?Instructions ?Recorded acetaminophen 500 mg tablet 1,000 mg (2 x 500 mg) PO TID #90 07/12/22 tabs Allergies Allergy/AdvReac Type Severity Reaction Status Date / Time Sulfa (Sulfonamide Allergy Mild Skin Rash Verified 09/08/25 18:56 Antibiotics) lactose Allergy Unknown Unverified 09/08/25 18:56 General Stated Complaint: Arrhythmia KATEY: 3 Review of Systems All systems reviewed & are unremarkable except as noted in HPI and below Constitutional Constitutional: Denies chills, Denies fever(s) and Denies weakness Cardiovascular Cardiovascular: Denies chest pain, Reports palpitations and Denies dyspnea Respiratory Respiratory: Denies cough and Denies dyspnea Gastrointestinal Gastrointestinal: Denies abdominal pain, Denies nausea and Denies vomiting Neurologic Neurologic: Denies weakness Endocrine Endocrine: Reports palpitations Exam Const General: no acute distress Orientation: alert [facility] Head: normal to inspection Ears: external ears normal General nose exam: external nose normal Mouth: moist mucous membranes Eyes General: appearance normal, both eyes and all related structures Neck Neck: normal visual inspection Resp Effort & Inspection: normal respiratory effort and able to speak in complete sentences Auscultation: clear to auscultation bilaterally Cardio Jugular venous pressure: no JVD Rate: regular rate Skin General skin exam: no rashes or lesions noted Neuro General: patient alert and patient oriented x3 Extrem General: normal to inspection Psych Mental Status: mental status grossly normal Course Vital Signs Vital signs: Vital Signs Pulse 94 H 09/08/25 18:48 Respiratory Rate 16 09/08/25 18:48 Blood Pressure 172/91 H 09/08/25 18:48 Pulse Oximetry 94 09/08/25 18:48 Pulse 94 H 09/08/25 18:48 Respiratory Rate 16 09/08/25 18:48 Blood Pressure 172/91 H 09/08/25 18:48 Blood Pressure Position Sitting 09/08/25 18:48 Pulse Oximetry 94 09/08/25 18:48 Oxygen Delivery Method Room Air 09/08/25 18:48 Oxygen Flow Rate 0 09/08/25 18:48 Pain Level 0 09/08/25 18:48 Medical Decision Making 79-year-old female with no significant past medical history comes in after she felt her heart was beating irregularly. She says that she was working around the house which is normal for her when she laid down and felt her heart beating irregularly. This lasted for 10 to 20 minutes and now has resolved. She denies ever having the feeling like she was going to pass out, no chest pain or difficulty breathing. She currently is asymptomatic. She is ambulatory with a normal gait on arrival, oriented x 4. She has clear lung sounds, no JVD, she is currently in sinus rhythm, she has no leg swelling or calf tenderness. Unclear etiology for symptoms suspect she could have been in A-fib, will check CBC CMP magnesium and troponins, and keep on telemetry monitoring. She has no evidence of DVT on exam, no hypoxia or tachycardia so I doubt PE. She has no tearing back pain and has equal peripheral pulses so I doubt dissection. Patient has been stable in sinus rhythm, labs without emergent findings, delta troponin 5 as well as the first 1. Discussed results with her and given reassuring workup I feel she can follow-up with her PCP, return precautions given. Differential Diagnosis Differential Diagnosis: afib, electrolyte abnormalty Medical Records Medical records reviewed: Yes I reviewed the patient's medical records. Lab Data Lab results reviewed: Yes I reviewed the patient's lab results. ECG Data Attestation: I personally reviewed and interpreted this ECG (s) as follows: Prior ECG tracings: available for review Interpretation: sinus rate of 89 no stemi, motion artifact in v6 PFSH All Active Problems (Updated 09/08/25 @ 20:55 by Deepak Alcaraz MD) Palpitations (Acute) Pain in joint, foot, left (Acute) Foot pain (Acute) Physical deconditioning (Acute) Closed right hip fracture (Acute) Status post Trochanteric bursitis of both hips (Acute) Lactose intolerance (Acute) Sjogrens syndrome (Chronic) Disorder of salivary gland (Acute 06/26/12) Localized primary osteoarthritis of lower leg (Acute 01/08/13) R KNEE; H/O ACL SURG ; RX PT Other malaise and fatigue (Acute 06/26/12) Tendinitis of left rotator cuff (Acute) Bilateral tinnitus (Acute 11/21/19) [place] Sensorineural hearing loss of combined sites, bilateral (Chronic) Female bladder prolapse, acquired (Acute) 02/27/20 [facility] Non-restorative sleep (Acute) Dysphagia (Acute) Sensorineural hearing loss, bilateral (Acute) Degenerative joint disease of right hip (Acute) Medical History Hx of tear of ACL (anterior cruciate ligament) right History of COVID-19 2019 Hx of fracture of hip Fracture, intertrochanteric, right femur Fracture of femoral neck, left (11/16/14) Surgical History 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 hysterectomy b. ACL repair right knee Family History Mother , Alzheimers at age 89. Breast cancer Grandmother Colon cancer MGM Father No problems noted. 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
[2025-09-08 19:27] LABS: Abs Immature Grans 0.03 10^3/uL (0.0-0.06); HCT 40.2 % (36.0-46.0); HGB 13.4 g/dL (11.2-15.7); Immature Grans % 0.3 %; MCH 29.2 pg (27.0-33.0); MCHC 33.3 % (32.0-36.0); MCV 88 fL (80-95); MPV 9.1 fL (8.0-11.0); Platelet Count 303 10^3/uL (130-400); RBC 4.59 10^6/uL (3.93-5.22); RDW 12.8 % (11.7-14.6); RDW-SD 41.0 fL; WBC 8.98 10^3/uL (4.4-10.8)
[2025-09-08 19:42] LABS: Magnesium 1.7 mg/dL (1.6-2.6)
[2025-09-08 19:43] LABS: Troponin I 5 ng/L (<35)
[2025-09-08 19:44] LABS: ALT 16 U/L (10-49); AST 28 U/L (<34); Albumin 4.1 g/dL (3.2-5.0); Alkaline Phosphatase 56 U/L (46-116); Anion Gap 9.4 mmol/L (3-11); BUN 13 mg/dL (9-23); Bilirubin, Total 0.4 mg/dL (0.2-1.2); CO2 26.6 mmol/L (20.0-31.0); Calcium 9.0 mg/dL (8.3-10.6); Chloride 105 mmol/L (98-107); Glucose 111 mg/dL (74-106); Potassium 3.4 mmol/L (3.5-5.1); Sodium 141 mmol/L (136-145); Total Protein 7.1 g/dL (5.7-8.2)
[2025-09-08 19:47] LABS: TSH (W/Ref FT4) 1.24 uIU/mL (0.55-4.78)
[2025-09-08 20:36] LABS: Troponin I 5 ng/L (<35)
== END 2025-09-08 20:56 | disposition home or self-care (01) ==
PROVIDERS: Emergency Provider Emergency Medicine; PCP Family Medicine
DX: R00.2 Palpitations (principal)
CPT/HCPCS: 99283; 99284; 36415; 80053; 93005; 83735; 84443; 84484; 85025; 93010